=== PATIENT | female | born 1985 | race Caucasian/White ===

== ENCOUNTER 2023-10-20 20:11 | Outpatient (REF) | payer BC, SELFPAY ==
[2023-10-25 15:07] LABS: Age Gdln ACOG Testing Note (.); HPV Aptima Negative (Negative); IGP, Aptima HPV, rfx 16/18,45 Note (.)
== END 2023-10-20 20:12 | disposition home or self-care (01) ==
LOC: LAB 20:11
PROVIDERS: PCP Nurse Practitioner Family; Visit Provider Physician Assistant
DX: Z01.419 Encounter for gynecological examination (general) (routine) without abnormal findings (principal)
CPT/HCPCS: 87624; G0145

== ENCOUNTER 2023-11-04 10:17 | Outpatient (OUT) | payer BC, SELFPAY ==
[2023-11-04 11:20] LABS: Estimated Average Glucose 105 mg/dL; Glycohemoglobin A1C 5.3 % (4.5-6.2)
[2023-11-04 11:21] LABS: Basophils Percent Auto 0.8 % (0.2-2.0); Eosinophils Absolute Auto 0.1 10^3/uL (0.0-0.7); Eosinophils Percent Auto 1.2 % (0.9-7.0); Hematocrit 41.7 % (36.0-48.0); Hemoglobin 13.7 g/dL (12.0-16.0); Immature Granulocytes Abs Auto 0.01 10^3/uL (0.00-0.03); Immature Granulocytes Pct Auto 0.2 % (0.0-0.5); Lymphocytes Absolute Auto 1.6 10^3/uL (1.2-3.8); Lymphocytes Percent Auto 31.1 % (20.5-60.0); Mean Corpuscular HGB Conc 32.9 g/dL (29.9-35.2); Mean Corpuscular Hemoglobin 28.1 pg (26.7-34.0); Mean Corpuscular Volume 85.5 fL (81.0-99.0); Monocytes Absolute Auto 0.5 10^3/uL (0.3-0.8); Monocytes Percent Auto 9.7 % (1.7-12.0); Neutrophils Absolute Auto 2.9 10^3/uL (1.4-6.5); Platelet Count 319 10^3/uL (150-450); Red Blood Count 4.88 10^6/uL (4.20-5.40); Red Cell Distribution Width 14.1 % (11.0-15.0); White Blood Count 5.2 10^3/uL (4.0-11.0)
[2023-11-04 11:55] LABS: Mono Screen NEGATIVE (NEGATIVE)
[2023-11-04 11:56] LABS: Alanine Aminotransferase 17 U/L (14-59); Albumin Globulin Ratio 0.9; Albumin Level 3.9 g/dL (3.4-5.0); Alkaline Phosphatase 69 U/L (46-116); Anion Gap 12.6; Aspartate Amino Transferase 14 U/L (15-37); BUN Creatinine Ratio 19.2; Bilirubin Total 0.3 mg/dL (0.2-1.0); Calcium 9.2 mg/dL (8.5-10.1); Carbon Dioxide 28.2 mmol/L (21.0-32.0); Chloride 103 mmol/L (98-107); Chol HDL Ratio 2.9; Cholesterol 221 mg/dL (<=200); Estimated GFR (African America >60 (>=60); Estimated GFR (Non-African Ame >60 (>=60); Free T3 2.85 pg/mL (2.18-3.98); Globulin 4.2 g/dL; Glucose 84 mg/dL (74-106); HDL Cholesterol 76 mg/dL (40-60); Potassium 3.8 mmol/L (3.5-5.1); Sodium 140 mmol/L (136-145); Total Protein 8.1 g/dL (6.4-8.2); Triglycerides 84 mg/dL (<=150); Uric Acid 2.7 mg/dL (2.6-6.0); VLDL CHOLESTEROL 16.8 mg/dL
[2023-11-04 12:11] LABS: C Reactive Protein <0.50 mg/dL (<=0.50)
[2023-11-05 06:10] LABS: Antistreptolysin O Ab 207.8 IU/mL (0.0-200.0); Rheumatoid Factor (RF) <10.0 IU/mL (<14.0)
[2023-11-05 10:11] LABS: Insulin 3.8 uIU/mL (2.6-24.9)
== END 2023-11-04 10:18 | disposition home or self-care (01) ==
LOC: LAB 10:20
PROVIDERS: PCP Nurse Practitioner Family; Visit Provider Nurse Practitioner Family
DX: Z00.00 Encounter for general adult medical examination without abnormal findings (principal); R53.83 Other fatigue
CPT/HCPCS: 36415; 80053; 80061; 82306; 83036; 83525; 83540; 84436; 84443; 84481; 84550; 85025; 86038; 86060; 86140; 86308; 86431

== ENCOUNTER 2023-11-07 17:50 | Emergency (ER) | payer BC, SELFPAY ==
[2023-11-07] VITALS (20 sets, daily range): BP systolic 111–134; BP diastolic 70–84; PULSE 49–79; RESP 10–60; TEMP 36.9; O2SAT 95–100; BMI 29.5
--- OUTSIDE RECORDS SUMMARY | 2023-11-07 18:00 | XMS_ITS | CCD ---
Author Name Unknown Address [id number] [place] [address] Organization [facility] Care Team Providers Care Ticket Speculator Name Role Phone TAMEKA JC Attending Unavailable KARASIK ., DR DILLARD Consulting Unavailabl e KARASIK ., DR DILLARD Attending Unavailabl e KARASIK ., DR DILLARD Admitting Unavailabl e NILESH, ROSHAN Primary Care Unavailable KARASIK ., DR DILLARD Attending Unavailabl e NILESH, ROSHAN Primary Care Unavailable KARASIK ., DR DILLARD Admitting Unavailabl e NILESH, ROSHAN Primary Care Unavailable KARASIK ., DR DILLARD Attending Unavailabl e KARASIK ., DR DILLARD Admitting Unavailabl e KARASIK ., DR DILLARD Consulting Unavailabl e KARASIK ., DR DILLARD Attending Unavailabl e NILESH, ROSHAN Primary Care Unavailable KARASIK ., DR DILLARD Admitting Unavailabl e AGUBOSIM, OLIVIA Consulting Unavailable LUCRECIA GREENBERG Consulting Unavailable KARASIK ., DR DILLARD Consulting Unavailabl e NILESH, ROSHAN Primary Care Unavailable KARASIK ., DR DILLARD Attending Unavailabl e KARASIK ., DR DILLARD Admitting Unavailabl e LEANN SANCHEZ Consulting Unavailable NILESH, ROSHAN Attending Unavailable NILESH, ROSHAN Admitting Unavailable NILESH, ROSHAN Primary Care Unavailable KARASIK ., DR DILLARD Attending Unavailabl e LEVINE ., DR HUTCHISON Consulting Unavailable KARASIK ., DR DILLARD Admitting Unavailabl e NILESH, ROSHAN Primary Care Unavailable KARASIK ., DR DILLARD Consulting Unavailabl e AGUBOSIM, OLIVIA Consulting Unavailable VAISHNAVI ENGLISH Consulting Unavailable LEVINE ., DR HUTCHISON Procedure Practitioner Unav ailable KARASIK ., DR DILLARD Procedure Practitioner Jenna vailable NILESH, ROSHAN Primary Care Unavailable NILESH, ROSHAN Consulting Unavailable NILESH, ROSHAN Attending Unavailable NILESH, ROSHAN Admitting Unavailable NILESH, ROSHAN Consulting Unavailable NILESH, ROSHAN Attending Unavailable NILESH, ROSHAN Admitting Unavailable NILESH, ROSHAN Primary Care Unavailable NILESH, ROSHAN Primary Care Unavailable REINECK, DR MITCH Negron Attending Unavailabl e REINECK, DR MITCH Negron Admitting Unavailabl e REINECK, DR MITCH Negron Consulting Unavailabl e KARASIK ., DR DILLARD Consulting Unavailabl e KARASIK ., DR DILLARD Admitting Unavailabl e KARASIK ., DR DILLARD Attending Unavailabl e NILESH, ROSHAN Primary Care Unavailable KARASIK ., DR DILLARD Consulting Unavailabl e KARASIK ., DR DILLARD Attending Unavailabl e NILESH, ROSHAN Primary Care Unavailable KARASIK ., DR DILLARD Admitting Unavailabl e TYREL, RADHA Attending Unavailable Problems Active Problems Problem Classification Problem Date Documented Da te Episodic/Chronic Endometriosis (2 sources) Endometriosis, unspecified; Translations: [Endometriosis of pelvic peritoneum] Onset: 04-27-2022 Chronic External cause codes: Natural/environment (1 source) Bitten by dog, initial encounter; Translations: [Bitten by dog, initial encounter] Onset: 10-12-2018 Inflammatory diseases of female pelvic organs (4 sources) Chronic parametritis and pelvic cellulitis; Translations: [CHRON PARAMETRITIS PELV CELLULITIS] Onset: 05-15-2022 Chronic Menstrual disorders (1 source) Excessive and frequent menstruation with regular cycle; Translations: [EXCESS FREQ MENSTRUATION W/REG CYCL] Onset: 05-25-2022 Chronic Mood disorders (1 source) Bipolar disorder, unspecified; Translations: [BIPOLAR DISORDER UNSPECIFIED] Onset: 05-25-2022 Chronic Nausea and vomiting (1 source) Nausea; Translations: [Nausea] Onset: 01-07-2018 Episodic Other diseases of veins and lymphatics (1 source) Lymphangitis; Translations: [LYMPHANGITIS] Onset: 03-27-2022 Chronic Other female genital disorders (1 source) Abnormal uterine and vaginal bleeding, unspecified; Translations: [ABNORMAL UTERINE VAGINAL BLEED UNS] Onset: 04-27-2022 Chronic Unclassified (1 source) CONTACT W/AND (SUSP) EXPOS COVID-19; Translations: [CONTACT W/AND (SUSP) EXPOS COVID-19] Onset: 05-15-2022 Unclassified (3 sources) COUGH, UNSPECIFIED; Translations: [COUGH, UNSPECIFIED] Onset: 03-05-2022 Past or Other Problems Problem Classification Problem Date Documented Da te Episodic/Chronic Abdominal pain (5 sources) Left lower quadrant pain; Translations: [Pelvic and perineal pain] Onset: 01-07-2018 Episodic Complications of surgical procedures or medical care (1 source) Accidental puncture and laceration of a digestive system organ or structure during a digestive system procedure; Translations: [ACC PUNCT LAC DS ORGN DUR DS PROC] Onset: 05-25-2022 Episodic Contraceptive and procreative management (1 source) Tubal ligation status; Translations: [TUBAL LIGATION STATUS] Onset: 04-27-2022 Episodic E Codes: Natural/environment (1 source) Bitten by cat, initial encounter; Translations: [BITTEN BY CAT INITIAL ENCOUNTER] Onset: 03-27-2022 Episodic Fever of unknown origin (1 source) Fever, unspecified; Translations: [FEVER UNSPECIFIED] Onset: 03-05-2022 Episodic Immunizations and screening for infectious disease (1 source) Encounter for immunization; Translations: [ENCOUNTER FOR IMMUNIZATION] Onset: 03-27-2022 Episodic Inflammatory diseases of female pelvic organs (1 source) Female pelvic peritoneal adhesions (postinfective); Translations: [FE PELV PERITON ADHES POSTINFECTIVE] Onset: 05-25-2022 Episodic Open wounds of extremities (5 sources) Open bite of other finger without damage to nail, initial encounter; Translations: [Open bite of left thumb without damage to nail, initial encounter] Onset: 10-12-2018 Episodic Other female genital disorders (1 source) Hypertrophy of uterus; Translations: [HYPERTROPHY OF UTERUS] Onset: 05-25-2022 Episodic Screening and history of mental health and substance abuse codes (1 source) Personal history of nicotine dependence; Translations: [PERSONAL HISTORY OF NICOTINE DEPEND] Onset: 05-25-2022 Episodic Unclassified (1 source) COUGH, UNSPECIFIED; Translations: [COUGH, UNSPECIFIED] Onset: 03-02-2022 Results Test Name Value Interpretation Reference Range Facility Operative Reporton 2 Operative Report [id number] D:127 Normal [facility] CBC AUTO DIFFon 05-20-2022 BASO # 0.0 103/ul Normal 0.0-0.1 [facility] Comment on above: Performed By: #### C BC #### [facility] [address] [address] [address] Jose Daniel Duke Basophils/100 WBC (Bld) 0.5 % Normal 0.2-2.0 [facility] Comment on above: Performed By: #### C BC #### [facility] [address] [place] [address] Dr. Jose Daniel Duke EO # 0.2 103/ul Normal 0.0-0.7 [facility] Comment on above: Performed By: #### C BC #### [facility] [address] [place] [address] Dr. Jose Daniel Duke Eosinophils/100 WBC (Bld) 2.5 % Normal 0.9-7.0 [facility] Comment on above: Performed By: #### C BC #### [facility] [address] [place] [address] Dr. Jose Daniel Duke Erythrocyte distribution width (RBC) [Ratio] 15.7 % Critically high 11.0-15.0 [facility] Comment on above: Performed By: #### C BC #### [facility] [address] [place] [address] Dr. Jose Daniel Duke Hematocrit (Bld) [Volume fraction] 31.5 % Critically low 36.0-48.0 [facility] Comment on above: Performed By: #### C BC #### [facility] [address] [place] [address] Dr. Jose Daniel Duke Hemoglobin (Bld) [Mass/Vol] 10.0 g/dL Critically low 12.0-16.0 [facility] Comment on above: Performed By: #### C BC #### [facility] [address] [place] [address] Dr. Jose Daniel Duke IG # 0.01 10e3/ul Normal 0.00-0.03 [facility] Comment on above: Performed By: #### C BC #### [facility] [address] [place] [address] Dr. Jose Daniel Duke IG % 0.2 % Normal 0.0-0.5 [facility] Comment on above: Performed By: #### C BC #### [facility] [address] [place] [address] Dr. Jose Daniel Duke LYMPH # 2.2 103/ul Normal 1.2-3.8 [facility] Comment on above: Performed By: #### C BC #### [facility] [address] [place] [address] Dr. Jose Daniel Duke Lymphocytes/100 WBC (Bld) 34.4 % Normal 20.5-60.0 [facility] Comment on above: Performed By: #### C BC #### [facility] [address] [place] [address] Dr. Jose Daniel Duke MANUAL DIFF REQ NO Normal [facility] Comment on above: Performed By: #### C BC #### [facility] [address] [place] [address] Dr. Jose Daniel Duke MCH (RBC) [Entitic mass] 26.8 pg Normal 26.7-34.0 [facility] Comment on above: Performed By: #### C BC #### [facility] [address] [place] [address] Dr. Jose Daniel Duke MCHC (RBC) [Mass/Vol] 31.7 g/dL Normal 29.9-35.2 [facility] Comment on above: Performed By: #### C BC #### [facility] [address] [place] [address] Dr. Jose Daniel Duke MCV (RBC) [Entitic vol] 84.5 fL Normal 81.0-99.0 [facility] Comment on above: Performed By: #### C BC #### [facility] [address] [place] [address] Dr. Jose Daniel Duke MONO # 0.9 103/ul Critically high 0.3-0.8 [facility] Comment on above: Performed By: #### C BC #### [facility] [address] [place] [address] Dr. Jose Daniel Duke Monocytes/100 WBC (Bld) 14.7 % Critically high 1.7-12.0 [facility] Comment on above: Performed By: #### C BC #### [facility] [address] [place] [address] Dr. Jose Daniel Duke NEUT # 3.0 103/ul Normal 1.4-6.5 [facility] Comment on above: Performed By: #### C BC #### [facility] [address] [place] [address] Dr. Jose Daniel Duke Neutrophils/100 WBC (Bld) 47.7 % Normal 43.0-75.0 [facility] Comment on above: Performed By: #### C BC #### [facility] [address] [place] [address] Dr. Jose Daniel Duke Platelet mean volume (Bld) [Entitic vol] 9.7 fL Normal 9.5-13.5 [facility] Comment on above: Performed By: #### C BC #### [facility] [address] [place] [address] Dr. Jose Daniel Duke PLT 251 103/ul Normal 150-450 [facility] Comment on above: Performed By: #### C BC #### [facility] [address] [place] [address] Dr. Jose Daniel Duke RBC 3.73 106/ul Critically low 4.20-5.40 [facility] Comment on above: Performed By: #### C BC #### [facility] [address] [place] [address] Dr. Jose Daniel Duke WBC 6.3 103/ul Normal 4.0-11.0 [facility] Comment on above: Performed By: #### C BC #### [facility] [address] [place] [address] Dr. Jose Daniel Duke BUNon 05-19-2022 Urea nitrogen [Mass/Vol] 9.0 mg/dL Normal 7.0-18.0 [facility] Comment on above: Performed By: #### B UN, CREA #### [facility] [address] [place] [address] Dr. Jose Daniel Duke CBC AUTO DIFFon 05-19-2022 BASO # 0.0 103/ul Normal 0.0-0.1 [facility] Comment on above: Performed By: #### C BC #### [facility] [address] [address] [address] Jose Daniel Duke Basophils/100 WBC (Bld) 0.4 % Normal 0.2-2.0 [facility] Comment on above: Performed By: #### C BC #### [facility] [address] [address] [address] Jose Daniel Duke EO # 0.0 103/ul Normal 0.0-0.7 [facility] Comment on above: Performed By: #### C BC #### [facility] [address] [place] [address] Dr. Jose Daniel Duke Eosinophils/100 WBC (Bld) 0.3 % Critically low 0.9-7.0 [facility] Comment on above: Performed By: #### C BC #### [facility] [address] [place] [address] Dr. Jose Daniel Duke Erythrocyte distribution width (RBC) [Ratio] 15.6 % Critically high 11.0-15.0 [facility] Comment on above: Performed By: #### C BC #### [facility] [address] [place] [address] Dr. Jose Daniel Duke Hematocrit (Bld) [Volume fraction] 32.5 % Critically low 36.0-48.0 [facility] Comment on above: Performed By: #### C BC #### [facility] [address] [place] [address] Dr. Jose Daniel Duke Hemoglobin (Bld) [Mass/Vol] 10.4 g/dL Critically low 12.0-16.0 [facility] Comment on above: Performed By: #### C BC #### [facility] [address] [place] [address] Dr. Jose Daniel Duke IG # 0.04 10e3/ul Critically high 0.00-0.[address] [facility] Comment on above: Performed By: #### C BC #### [facility] [address] [place] [address] Dr. Jose Daniel Duke IG % 0.4 % Normal 0.0-0.5 [facility] Comment on above: Performed By: #### C BC #### [facility] [address] [place] [address] Dr. Jose Daniel Duke LYMPH # 1.9 103/ul Normal 1.2-3.8 [facility] Comment on above: Performed By: #### C BC #### [facility] [address] [place] [address] Dr. Jose Daniel Duke Lymphocytes/100 WBC (Bld) 20.3 % Critically low 20.5-60.0 [facility] Comment on above: Performed By: #### C BC #### [facility] [address] [place] [address] Dr. Jose Daniel Duke MANUAL DIFF REQ NO Normal [facility] Comment on above: Performed By: #### C BC #### [facility] [address] [place] [address] Dr. Jose Daniel Duke MCH (RBC) [Entitic mass] 26.9 pg Normal 26.7-34.0 [facility] Comment on above: Performed By: #### C BC #### [facility] [address] [place] [address] Dr. Jose Daniel Duke MCHC (RBC) [Mass/Vol] 32.0 g/dL Normal 29.9-35.2 [facility] Comment on above: Performed By: #### C BC #### [facility] [address] [place] [address] Dr. Jose Daniel Duke MCV (RBC) [Entitic vol] 84.2 fL Normal 81.0-99.0 [facility] Comment on above: Performed By: #### C BC #### [facility] [address] [place] [address] Dr. Jose Daniel Duke MONO # 1.2 103/ul Critically high 0.3-0.8 [facility] Comment on above: Performed By: #### C BC #### [facility] [address] [place] [address] Dr. Jose Daniel Duke Monocytes/100 WBC (Bld) 12.6 % Critically high 1.7-12.0 [facility] Comment on above: Performed By: #### C BC #### [facility] [address] [place] [address] Dr. Jose Daniel Duke NEUT # 6.2 103/ul Normal 1.4-6.5 [facility] Comment on above: Performed By: #### C BC #### [facility] [address] [place] [address] Dr. Jose Daniel Duke Neutrophils/100 WBC (Bld) 66.0 % Normal 43.0-75.0 [facility] Comment on above: Performed By: #### C BC #### [facility] [address] [place] [address] Dr. Jose Daniel Duke Platelet mean volume (Bld) [Entitic vol] 9.9 fL Normal 9.5-13.5 [facility] Comment on above: Performed By: #### C BC #### [facility] [address] [place] [address] Dr. Jose Daniel Duke PLT 259 103/ul Normal 150-450 [facility] Comment on above: Performed By: #### C BC #### [facility] [address] [place] [address] Dr. Jose Daniel Duke RBC 3.86 106/ul Critically low 4.20-5.40 [facility] Comment on above: Performed By: #### C BC #### [facility] [address] [place] [address] Dr. Jose Daniel Duke WBC 9.3 103/ul Normal 4.0-11.0 [facility] Comment on above: Performed By: #### C BC #### [facility] [address] [place] [address] Dr. Jose Daniel Duke CREATININEon 05-19-2022 Creatinine [Mass/Vol] 0.91 mg/dL Normal 0.55-1.02 [facility] Comment on above: Performed By: #### B UN, CREA #### [facility] [address] [place] [address] Dr. Jose Daniel Duke EGFR-AF CITIZ[place] >60 Normal >=[address] [facility] Comment on above: Performed By: #### B UN, CREA #### [facility] [address] [address] [address] Jose Daniel Duke EGFR-NON AF CITIZEN OF [place] >60 Normal >=60 [facility] Comment on above: Performed By: #### B UN, CREA #### [facility] [address] [id number] Jose Daniel Duke URon 05-18-2022 , QUAL Negative Normal NEGATIVE [facility] Comment on above: Performed By: #### B UN, CREA #### [facility] [address] [address] [address] Jose Daniel Duke [facility] 04-27 SARS-CoV-2 (COVID-19) RNA VON+probe Ql (Unsp spec) Not detected Normal NOT DETECTED [facility] Comment on above: Result Comment: This test is not yet approved or cleared by the [place] FDA. When there are no FDA-approved or cleared tests available, and other criteria are met, FDA can make tests available under an emergency access mechanism called an Emergency Use Authorization (EUA). The EUA for this test is supported by the [place] of Health and Human Service's (HHS's) declaration that circumstances exist to justify the emergency use of in vitro diagnostics for the detection and/or diagnosis of the virus that causes COVID-19. This EUA will remain in effect (meaning this test can be used) for the duration of the COVID-19 declaration justifying emergency of IVDs, unless it is terminated or revoked by FDA (after which the test may no longer be used). When diagnostic testing is negative, the possibility of a false negative should be considered in the context of a patient's recent exposures and the presence of clinical signs and symptoms consistent with SARS-CoV-2. Performed By: #### B UN, CREA #### [facility] [address] [address] [address] Jose Daniel Duke TYPE AND SCREENon 05-14-2022 TYPE AND SCREEN Negative Normal [facility] Comment on above: Performed By: #### B UN, CREA #### [facility] [address] [place] [address] Dr. Jose Daniel Duke Physician Referralon 022 Physician Referral [id number] D:127 Normal [facility] URon 04-20-2022 , QUAL Negative Normal NEGATIVE [facility] Comment on above: Performed By: #### P REGU #### [facility] [address] [place] [address] Dr. Jose Daniel Duke T4 LABCORPon 03-05-2022 T4 [Mass/Vol] 7.4 ug/dL Normal 4.5-12.0 [facility] Comment on above: Performed By: #### T 4LC #### [facility] [address] [place] [address] Dr. Jose Daniel Duke Covid-19 PCR ([facility])on SARS-CoV-2 (COVID-19) RNA VON+probe Ql (Unsp spec) Not detected Normal NOT DETECTED [facility] Comment on above: Result Comment: When diagnostic testing is negative, the possibility of a false negative should be considered in the context of a patient's recent exposures and the presence of clinical signs and symptoms consistent with SARS-CoV-2. This test is not yet approved or cleared by the [place] FDA. When there are no FDA-approved or cleared tests available, and other criteria are met, FDA can make tests available under an emergency access mechanism called an Emergency Use Authorization (EUA). The EUA for this test is supported by the [place] of Health and Human Service's declaration that circumstances exist to justify the emergency use of in vitro diagnostics for the detection and/or diagnosis of the virus that causes COVID-19. This EUA will remain in effect for the duration of the COVID-19 declaration justifying emergency of IVDs, unless it is terminated or revoked by the FDA (after which the test may no longer be used). Performed By: #### B UN, CREA #### [facility] [address] [place] [address] Dr. Jose Daniel Duke INFLUENZA A AND B AGon 03-02 INFLUANEGH SEE BELOW Normal [facility] Comment on above: Result Comment: Nega tive for Flu A protein angiten. Infection due to Flu A cannot be ruled out. Flu A angiten in the sample may be below the detection limit of the test. Performed By: #### I NFLUAB #### [facility] [address] [place] [address] Dr. Jose Daniel Duke [facility]ALTH SEE BELOW Normal [facility] Comment on above: Result Comment: Nega tive for Flu B protein antigen. Infection due to Flu B cannot be ruled out. Flu B antigen in the sample may be below the detection limit of the test. Performed By: #### I NFLUAB #### [facility] [address] [place] [address] Dr. Jose Daniel Duke INFLUENZA A AG Negative Normal NEGATIVE SEE COMMENT [facility] Comment on above: Performed By: #### I NFLUAB #### [facility] [address] [place] [address] Dr. Jose Daniel Duke INFLUENZA B AG Negative Normal NEGATIVE SEE COMMENT [facility] Comment on above: Performed By: #### I NFLUAB #### [facility] [address] [place] [address] Dr. Jose Daniel Duke INTERNAL CONTROLS Within Normal Limits Normal Wi thin Normal Limits [facility] Comment on above: Performed By: #### I NFLUAB #### [facility] [address] [place] [address] Dr. Jose Daniel Duke SYMPTOMATIC COVID-19 ANTIGEN on 03-02-2022 EUA Statement SEE BELOW Normal [facility] Comment on above: Result Comment: This test has not been FDA cleared or approved, but has been authorized by the FDA under an Emergency Use Authorization (EUA) for use by authorized laboratories certified under CLIA that meet the requirements to perform moderate or high complexity testing. This test has been authorized only for the detection of proteins from SARS-CoV-2, not for any other viruses or pathogens. The emergency use of this test is authorized for the duration of the declaration that circumstances exist justifying the authorization of emergency use of in vitro diagnostic tests for detection and/or diagnosis of Covid-19 under section 564(b)(1) of the Act, 21 U.S.C. 360bbb-3(b)(1), unless the declaration is terminated or authorization is revoked sooner. Performed By: #### C VDAGS #### [facility] [address] [place] [address] Dr. Jose Daniel Duke SARS-CoV-2 (COVID-19) RNA VON+probe Ql (Unsp spec) Negative Normal NEGATIVE [facility] Comment on above: Performed By: #### C VDAGS #### [facility] [address] [place] [address] Dr. Jose Daniel Duke INSULINon 02-26-2022 Insulin 6.8 uIU/mL Normal 2.6-24.9 [facility] Comment on above: Performed By: #### B UN, CREMelvina #### [facility] [address] [place] [address] Dr. Jose Daniel Duke CBC AUTO DIFFon 02-25-2022 BASO # 0.1 103/ul Normal 0.0-0.1 [facility] Comment on above: Performed By: #### C BC #### [facility] [address] [place] [address] Dr. Jose Daniel Duke Basophils/100 WBC (Bld) 0.8 % Normal 0.2-2.0 [facility] Comment on above: Performed By: #### C BC #### [facility] [address] [place] [address] Dr. Jose Daniel Duke EO # 0.1 103/ul Normal 0.0-0.7 [facility] Comment on above: Performed By: #### C BC #### [facility] [address] [place] [address] Dr. Jose Daniel Duke Eosinophils/100 WBC (Bld) 1.3 % Normal 0.9-7.0 [facility] Comment on above: Performed By: #### C BC #### [facility] [address] [place] [address] Dr. Jose Daniel Duke Erythrocyte distribution width (RBC) [Ratio] 15.1 % Critically high 11.0-15.0 [facility] Comment on above: Performed By: #### C BC #### [facility] [address] [address] [address] Jose Daniel Duke Hematocrit (Bld) [Volume fraction] 39.5 % Normal 36.0-48.0 [facility] Comment on above: Performed By: #### C BC #### [facility] [address] [place] [address] Dr. Jose Daniel Duke Hemoglobin (Bld) [Mass/Vol] 12.7 g/dL Normal 12.0-16.0 [facility] Comment on above: Performed By: #### C BC #### [facility] [address] [place] [address] Dr. Jose Daniel Duke IG # 0.01 10e3/ul Normal 0.00-0.03 [facility] Comment on above: Performed By: #### C BC #### [facility] [address] [place] [address] Dr. Jose Daniel Duke IG % 0.2 % Normal 0.0-0.5 [facility] Comment on above: Performed By: #### C BC #### [facility] [address] [place] [address] Dr. Jose Daniel Duke LYMPH # 2.0 103/ul Normal 1.2-3.8 [facility] Comment on above: Performed By: #### C BC #### [facility] [address] [place] [address] Dr. Jose Daniel Duke Lymphocytes/100 WBC (Bld) 32.7 % Normal 20.5-60.0 [facility] Comment on above: Performed By: #### C BC #### [facility] [address] [place] [address] Dr. Jose Daniel Duke MANUAL DIFF REQ NO Normal [facility] Comment on above: Performed By: #### C BC #### [facility] [address] [place] [address] Dr. Jose Daniel Duke MCH (RBC) [Entitic mass] 27.2 pg Normal 26.7-34.0 [facility] Comment on above: Performed By: #### C BC #### [facility] [address] [address] [address] Jose Daniel Duke MCHC (RBC) [Mass/Vol] 32.2 g/dL Normal 29.9-35.2 [facility] Comment on above: Performed By: #### C BC #### [facility] [address] [address] [address] Jose Daniel Duke MCV (RBC) [Entitic vol] 84.6 fL Normal 81.0-99.0 [facility] Comment on above: Performed By: #### C BC #### [facility] [address] [address] [address] Jose Daniel Duke MONO # 0.8 103/ul Normal 0.3-0.8 [facility] Comment on above: Performed By: #### C BC #### [facility] [address] [place] [address] Dr. Jose Daniel Duke Monocytes/100 WBC (Bld) 12.9 % Critically high 1.7-12.0 [facility] Comment on above: Performed By: #### C BC #### [facility] [address] [place] [address] Dr. Jose Daniel Duke NEUT # 3.2 103/ul Normal 1.4-6.5 [facility] Comment on above: Performed By: #### C BC #### [facility] [address] [place] [address] Dr. Jose Daniel Duke Neutrophils/100 WBC (Bld) 52.1 % Normal 43.0-75.0 [facility] Comment on above: Performed By: #### C BC #### [facility] [address] [place] [address] Dr. Jose Daniel Duke Platelet mean volume (Bld) [Entitic vol] 10.1 fL Normal 9.5-13.5 [facility] Comment on above: Performed By: #### C BC #### [facility] [address] [place] [address] Dr. Jose Daniel Duke PLT 314 103/ul Normal 150-450 [facility] Comment on above: Performed By: #### C BC #### [facility] [address] [address] [address] Jose Daniel Duke RBC 4.67 106/ul Normal 4.20-5.40 [facility] Comment on above: Performed By: #### C BC #### [facility] [address] [place] [address] Dr. Jose Daniel Duke WBC 6.1 103/ul Normal 4.0-11.0 [facility] Comment on above: Performed By: #### C BC #### [facility] [address] [place] [address] Dr. Jose Daniel Duke FREE THYROXINE INDEX T7on FTI 2.37 Normal 1.30-4.50 [facility] Comment on above: Performed By: #### B DEMETRICE, CREA #### [facility] [address] [place] [address] Dr. Jose Daniel Duke T3U 32.0 % Normal 30.0-39.0 [facility] Comment on above: Performed By: #### B DEMETRICE, CREA #### [facility] [address] [place] [address] Dr. Jose Daniel Duke T4 [Mass/Vol] 7.40 ug/dL Normal 4.80-13.90 [facility] Comment on above: Result Comment: T4 t esting performed by [facility] Performed By: #### B DEMETRICE, CREA #### [facility] [address] [place] [address] Dr. Jose Daniel Duke GLYCOHEMOGLOBIN A1Con 2021 ADA RECOMMENDATION SEE BELOW Normal [facility] Comment on above: Result Comment: ADA RECOMMENDED LIMIT 4.0 - 6.0 ADA THERAPEUTIC TARGET < 7.0 ACTION SUGGESTED > 7.0 Performed By: #### A 1C #### [facility] [address] [place] [address] Dr. Jose Daniel Duke Glucose [Mass/Vol] 111 mg/dL Normal [facility] Comment on above: Performed By: #### A 1C #### [facility] [address] [place] [address] Dr. Jose Daniel Duke HbA1c (Bld) [Mass fraction] 5.5 % Normal 4.5-6.2 [facility] Comment on above: Performed By: #### A 1C #### [facility] [address] [address] [address] Jose Daniel Duke IRONon 02-25-2022 Iron [Mass/Vol] 77.0 ug/dL Normal 50.0-170.0 [facility] Comment on above: Performed By: #### B UN, CREA #### [facility] [address] [address] [address] Jose Daniel Duke LIPID PROFILEon 02-25-2022 CHOL-HDL RATIO NORM SEE BELOW Normal [facility] Comment on above: Result Comment: 3.3 - 4.4 LOW RISK 4.4 - 7.1 AVERAGE RISK 7.1 - 11.0 MODERATE RISK >11.0 HIGH RISK Performed By: #### B UN, CREA #### [facility] [address] [place] [address] Dr. Jose Daniel Duke Cholesterol [Mass/Vol] 163 mg/dL Normal <=200 [facility] Comment on above: Performed By: #### B UN, CREA #### [facility] [address] [address] [address] Jose Daniel Duke Cholesterol in HDL [Mass/Vol] 55 mg/dL Normal 40-60 [facility] Comment on above: Performed By: #### B UN, CREA #### [facility] [address] [address] [address] Jose Daniel Duke Cholesterol in LDL [Mass/Vol] 77.2 mg/dL Normal [facility] Comment on above: Performed By: #### B UN, CREA #### [facility] [address] [address] [address] Jose Daniel Duke Cholesterol.total/Ch olesterol in HDL [Mass ratio] 3.0 {ratio} Normal [facility] Comment on above: Performed By: #### B UN, CREA #### [facility] [address] [address] [address] Jose Daniel Duke HDL NORMAL > or = 60 mg/dl - LO W CARDIOVASCULAR RISK <40 mg/dl - HIGH CARDIOVASCULAR RISK Normal [facility] Comment on above: Performed By: #### B UN, CREA #### [facility] [address] [place] [address] Dr. Jose Daniel Duke LDL CALC NORMAL SEE BELOW Normal [facility] Comment on above: Result Comment: <100 mg/dl OPTIMAL 100 - 129 mg/dl NEAR OR ABOVE OPTIMAL 130 - 159 mg/dl BORDERLINE HIGH 160 - 189 mg/dl HIGH >190 mg/dl VERY HIGH Performed By: #### B UN, CREA #### [facility] [address] [place] [address] Dr. Jose Daniel Duke Triglyceride [Mass/Vol] 154 mg/dL Critically high <=150 [facility] Comment on above: Performed By: #### B UN, CREA #### [facility] [address] [place] [address] Dr. Jose Daniel Duke VLDL CALC 30.8 mg/dL Normal [facility] Comment on above: Performed By: #### B UN, CREA #### [facility] [address] [place] [address] Dr. Jose Daniel Duke PROF 14(COMP METB)on 022 Albumin [Mass/Vol] 3.8 g/dL Normal 3.4-5.0 [facility] Comment on above: Performed By: #### B UN, CREA #### [facility] [address] [place] [address] Dr. Jose Daniel Duke Albumin/Globulin [Mass ratio] 1.0 {ratio} Normal [facility] Comment on above: Performed By: #### B UN, CREA #### [facility] [address] [place] [address] Dr. Jose Daniel Duke ALP [Catalytic activity/Vol] 60 U/L Normal 46-116 [facility] Comment on above: Performed By: #### B UN, CREA #### [facility] [address] [place] [address] Dr. Jose Daniel Duke ALT [Catalytic activity/Vol] 15 U/L Normal 14-59 [facility] Comment on above: Performed By: #### B UN, CREA #### [facility] [address] [place] [address] Dr. Jose Daniel Duke Anion gap [Moles/Vol] 14.5 mmol/L Normal [facility] Comment on above: Performed By: #### B UN, CREA #### [facility] [address] [place] [address] Dr. Jose Daniel Duke AST [Catalytic activity/Vol] 10 U/L Critically low 15-37 [facility] Comment on above: Performed By: #### B UN, CREA #### [facility] [address] [place] [address] Dr. Jose Daniel Duke Bilirubin [Mass/Vol] 0.2 mg/dL Normal 0.2-1.0 [facility] Comment on above: Performed By: #### B UN, CREA #### [facility] [address] [place] [address] Dr. Jose Daniel Duke Calcium [Mass/Vol] 8.8 mg/dL Normal 8.5-10.1 [facility] Comment on above: Performed By: #### B UN, CREA #### [facility] [address] [place] [address] Dr. Jose Daniel Duke Chloride [Moles/Vol] 102 mmol/L Normal 98-107 [facility] Comment on above: Performed By: #### B UN, CREA #### [facility] [address] [place] [address] Dr. Jose Daniel Duke CO2 [Moles/Vol] 24.8 mmol/L Normal 21.0-32.[address] [facility] Comment on above: Performed By: #### B UN, CREA #### [facility] [address] [place] [address] Dr. Jose Daniel Duke Creatinine [Mass/Vol] 0.80 mg/dL Normal 0.55-1.02 [facility] Comment on above: Performed By: #### B UN, CREA #### [facility] [address] [place] [address] Dr. Jose Daniel Duke EGFR-AF CITIZ[place] >60 Normal >=[address] [facility] Comment on above: Performed By: #### B UN, CREA #### [facility] [address] [place] [address] Dr. Jose Daniel Duke EGFR-NON AF CITIZEN OF [place] >60 Normal >=60 [facility] Comment on above: Performed By: #### B UN, CREA #### [facility] [address] [place] [address] Dr. Jose Daniel Duke Globulin (S) [Mass/Vol] 3.7 g/dL Normal [facility] Comment on above: Performed By: #### B UN, CREA #### [facility] [address] [place] [address] Dr. Jose Daniel Duke Glucose [Mass/Vol] 94 mg/dL Normal 74-106 [facility] Comment on above: Performed By: #### B UN, CREA #### [facility] [address] [place] [address] Dr. Jose Daniel Duke Potassium [Moles/Vol] 4.3 mmol/L Normal 3.5-5.1 [facility] Comment on above: Performed By: #### B UN, CREA #### [facility] [address] [place] [address] Dr. Jose Daniel Duke Protein [Mass/Vol] 7.5 g/dL Normal 6.4-8.2 [facility] Comment on above: Performed By: #### B UN, CREA #### [facility] [address] [place] [address] Dr. Jose Daniel Duke Sodium [Moles/Vol] 137 mmol/L Normal 136-145 [facility] Comment on above: Performed By: #### B UN, CREA #### [facility] [address] [place] [address] Dr. Jose Daniel Duke Urea nitrogen [Mass/Vol] 13.0 mg/dL Normal 7.0-18.0 [facility] Comment on above: Performed By: #### B UN, CREA #### [facility] [address] [place] [address] Dr. Jose Daniel Duke Urea nitrogen/Creatinine [Mass ratio] 16.2 mg/mg Normal [facility] Comment on above: Performed By: #### B UN, CREA #### [facility] [address] [address] [address] Jose Daniel Duke TSHon 02-25-2022 TSH 1.593 uIU/mL Normal 0.358-3.740 [facility] Comment on above: Performed By: #### B UN, CREA #### [facility] [address] [address] [address] Jose Daniel Duke TSH RANGE SEE BELOW Normal [facility] Comment on above: Result Comment: <0.3 4 UIU/ml HYPERTHYROID 0.34-5.60 UIU/ml EUTHYROID >5.60 UIU/ml HYPOTHYROID Performed By: #### B DEMETRICE, CREA #### [facility] [address] [address] [address] Jose Daniel Duke Lipid Panelon 03-27-2021 Cholesterol [Mass/Vol] 183 mg/dL Normal 140-200 [facility] Comment on above: Result Comment: Chol less than 200 mg/dl low risk Chol 201-239 mg/dl borderline risk Chol 240 mg/dl and greater high risk Performed By: #### V [id number], LIPID, TSH3 wRFLX #### [facility] [address] [place] [address] [place] Cholesterol in HDL [Mass/Vol] 50 mg/dL Normal 35-85 [facility] Comment on above: Result Comment: HDL CHOL ATP-III CLASSIFICATION Cardiovascular Risk HDL > or equal to 60 mg/dL LOW HDL < 40 mg/dL HIGH Performed By: #### V [id number], LIPID, TSH3 wRFLX #### [facility] [address] [place] [address] [place] Cholesterol.total/Ch olesterol in HDL [Mass ratio] 3.7 {ratio} Normal <5.0 [facility] Comment on above: Performed By: #### V [id number], LIPID, TSH3 wRFLX #### [facility] [address] [id number] [place] LDL Cholesterol,Calculat ed 110 mg/dL High 0-100 [facility] Comment on above: Result Comment: LDL ATP III CLASSIFICATION LDL less than 100 mg/dL Optimal LDL 100-129 mg/dL Near or above optimal LDL 130-159 mg/dL Borderline high LDL 160-189 mg/dL High LDL greater than 189 mg/dL Very high Performed By: #### V [id number], LIPID, TSH3 wRFLX #### [facility] [address] Triglyceride w/Reflex 113 mg/dL Normal 35-149 [facility] Comment on above: Result Comment: TRIG ATP III CLASSIFICATION TRIG less than 150 mg/dL Normal TRIG 150-199 mg/dL Borderline high TRIG 200-500 mg/dL High TRIG greater than 500 mg/dL Very high Standard traceable to the Center for Disease Conrtrol and Prevention (CDC) test method. Performed By: #### V [id number], LIPID, TSH3 wRFLX #### [facility] [address] [place] [address] VLDL CHOLESTEROL 22 mg/dL Normal [facility] Comment on above: Performed By: #### V [id number], LIPID, TSH3 wRFLX #### [facility] [address] [place] [address] Thyroid Stim Hormone w/Rflxo n 03-27-2021 Thyroid Stim Hormone w/Rflx 1.13 u[iU]/mL Normal 0.45-5.33 [facility] Comment on above: Performed By: #### V [id number], LIPID, TSH3 wRFLX #### [address] Vitamin D 25 Hydroxy Totalon 03-27-2021 Vitamin D 25 Hydroxy Total 20.5 ng/mL Low 30-100 [facility] Comment on above: Result Comment: WILLARD MIN D STATUS 25(OH)VITAMIN D RANGE (ng/mL) Deficient <20 Insufficient 20 to <30 Sufficient 30 to 100 Reference: Hallie MF,Paulina NC, Natividad RODRIGUEZ, et al. Evaluation,treatment, and prevention of vitamin D deficiency; an Endocrine Society clinical practice guideline. JCEM. 2010; 96(7):1911-30. PERFORMED BY: [place] [address] PATHOLOGIST HYPERTRICHOLOGIST JULIA GUARDADO M.D. Performed By: #### V [id number], LIPID, TSH3 wRMSX #### [facility] [address] COVID-19 Antigenon 1 COVID-19 Antigen Healthcare Worker?: N Jenny Reference Jenny Reference Negative SARS-CoV+SARS-CoV-2 (COVID-19) Ag [Presence] in Respiratory specimen by Rapid immunoassay Negative for SARS Antigen by [facility] COVID19 Blank Space -------- Jenny Disclaimer Negative results, from patients with symptom Jenny Disclaimer onset beyond five days, should be treated as Jenny Disclaimer presumptive and confirmation with a molecular Jenny Disclaimer assay, if necessary, for patient management, Jenny Disclaimer may be performed. Negative results do not rule Jenny Disclaimer out COVID-19 and should not be used as the sole Jenny Disclaimer basis for treatment or patient management Jenny Disclaimer decisions, including infection control decisions. Jenny Disclaimer Negative results should be considered in the Jenny Disclaimer context of a patient's recent exposures, history Jenny Disclaimer and the presence of clinical signs and symptoms Jenny Disclaimer consistent with COVID-19. COVID19 Blank Space -------- Jenny Disclaimer The Jenny SARS Antigen [facility] does not differentiate Jenny Disclaimer between SARS-CoV and SARS-CoV-2. COVID19 Blank Space -------- Jenny Disclaimer This test was developed and its performance Jenny Disclaimer characteristic determined by [employer] and Jenny Disclaimer validated at [facility]. This Jenny Disclaimer test has not been FDA cleared or approved. This Jenny Disclaimer test has been authorized by FDA under an Emergency Use Jenny Disclaimer Authorization (EUA). This test has been validated Jenny Disclaimer in accordance with the FDA's Guidance Document (Policy Jenny Disclaimer for Diagnostics Testing in Laboratories Certified to Jenny Disclaimer Perform High Complexity Testing under CLIA prior to Jenny Disclaimer Emergency Use Authorization for Coronavirus Jenny Disclaimer iseas during the Public Health Emergency) Jneny Disclaimer issued on December 28, 2019. This test is only authorized Jenny Disclaimer for the duration of time the declaration that Jenny Disclaimer circumstances exist justifying the authorization of Jenny Disclaimer the emergency use of in vitro diagnostic tests for Jenny Disclaimer detection of SARS-CoV-2 virus and/or diagnosis of Jenny Disclaimer COVID-19 infection under section 564(b)(1) of the Jenny Disclaimer Act, 21 U.S.C. 360bbb-3(b)(1), unless the Jenny Disclaimer authorization is terminated or revoked sooner. PERFORMED BY: [place] [address] PATHOLOGIST HYPERTRICHOLOGIST JULIA GUARDADO M.D. Normal [facility] Comment on above: Performed By: #### S OFIANEG, COVID-19 JENNY #### [facility] [address] [place] [address] Complete Blood Count Auto Di ffon 03-26-2021 Basophils (Bld) [#/Vol] 0.0 10*3/uL Normal 0.0-0.2 [facility] Comment on above: Result Comment: PERF ORMED BY: [place] [address] PATHOLOGIST HYPERTRICHOLOGIST JULIA GUARDADO M.D. Performed By: #### C MP, CBC, ETOH #### [facility] [address] [place], [place] [id number] [facility] Basophils/100 WBC (Bld) 0.7 % Normal . [facility] Comment on above: Performed By: #### C MP, CBC, ETOH #### [place] [address] [place] Eosinophils (Bld) [#/Vol] 0.1 10*3/uL Normal 0.0-0.45 [facility] Comment on above: Performed By: #### C MP, CBC, ETOH #### [address] Eosinophils/100 WBC (Bld) 1.4 % Normal . [facility] Comment on above: Performed By: #### C MP, CBC, ETOH #### [address] Erythrocyte distribution width (RBC) [Ratio] 16.1 % High 11.9-15.3 [facility] Comment on above: Performed By: #### C MP, CBC, ETOH #### [address] Hematocrit (Bld) [Volume fraction] 38.6 % Normal 34.0-46.4 [facility] Comment on above: Performed By: #### C MP, CBC, ETOH #### [address] Hemoglobin (Bld) [Mass/Vol] 12.8 g/dL Normal 11.8-15.4 [facility] Comment on above: Performed By: #### C MP, CBC, ETOH #### [place] [address] [place] Lymphocytes (Bld) [#/Vol] 1.2 10*3/uL Normal 1.00-4.8 [facility] Comment on above: Performed By: #### C MP, CBC, ETOH #### [place] [address] [place] Lymphocytes/100 WBC (Bld) 23.9 % Normal . [facility] Comment on above: Performed By: #### C MP, CBC, ETOH #### [address] MCH (RBC) [Entitic mass] 27.1 pg Normal 24.7-34.3 [facility] Comment on above: Performed By: #### C MP, CBC, ETOH #### [address] MCV (RBC) [Entitic vol] 81.9 fL Normal 80-100 [facility] Comment on above: Performed By: #### C MP, CBC, ETOH #### [address] Mean Corpuscular HGB Conc 33.1 g/dL Normal 32.0-35.0 [facility] Comment on above: Performed By: #### C MP, CBC, ETOH #### [address] Monocytes (Bld) [#/Vol] 0.5 10*3/uL Normal 0.0-0.8 [facility] Comment on above: Performed By: #### C MP, CBC, ETOH #### [address] Monocytes/100 WBC (Bld) 10.6 % Normal . [facility] Comment on above: Performed By: #### C MP, CBC, ETOH #### [address] Neutrophils (Bld) [#/Vol] 3.1 10*3/uL Normal 1.8-7.7 [facility] Comment on above: Performed By: #### C MP, CBC, ETOH #### [place] [address] [place] Neutrophils/100 WBC (Bld) 63.4 % Normal . [facility] Comment on above: Performed By: #### C MP, CBC, ETOH #### [place] [address] [place] Nucleated RBC/100 WBC (Bld) [Ratio] 0.1 % Normal 0-0.5 [facility] Comment on above: Performed By: #### C MP, CBC, ETOH #### [address] Platelet mean volume (Bld) [Entitic vol] 8.1 fL Normal 6.3-10.7 [facility] Comment on above: Performed By: #### C MP, CBC, ETOH #### [facility] [address] [place] [address] Platelets (Bld) [#/Vol] 284 10*3/uL Normal 150-450 [facility] Comment on above: Performed By: #### C MP, CBC, ETOH #### [address] RBC (Bld) [#/Vol] 4.71 10*6/uL Normal 3.60-5.00 [facility] Comment on above: Performed By: #### C MP, CBC, ETOH #### [address] WBC (Bld) [#/Vol] 4.9 10*3/uL Normal 4.5-11.0 [facility] Comment on above: Performed By: #### C MP, CBC, ETOH #### [address] Comprehensive Metabolic Pane maxim 03-26-2021 Albumin [Mass/Vol] 4.0 g/dL Normal 3.2-5.5 [facility] Comment on above: Performed By: #### C MP, CBC, ETOH #### [address] Albumin/Globulin [Mass ratio] 1.3 {ratio} Normal [facility] Comment on above: Performed By: #### C MP, CBC, ETOH #### [address] ALP [Catalytic activity/Vol] 55 U/L Normal 32-92 [facility] Comment on above: Performed By: #### C MP, CBC, ETOH #### [address] ALT [Catalytic activity/Vol] 11 U/L Normal 10-60 [facility] Comment on above: Performed By: #### C MP, CBC, ETOH #### [address] [place] [address] [place] AST [Catalytic activity/Vol] 15 U/L Normal 10-42 [facility] Comment on above: Performed By: #### C MP, CBC, ETOH #### [facility] [address] Bilirubin [Mass/Vol] 0.8 mg/dL Normal 0.3-1.2 [facility] Comment on above: Performed By: #### C MP, CBC, ETOH #### [facility] [address] Calcium [Mass/Vol] 9.1 mg/dL Normal 8.2-10.2 [facility] Comment on above: Performed By: #### C MP, CBC, ETOH #### [facility] [address] Chloride [Moles/Vol] 103 mmol/L Normal 95-114 [facility] Comment on above: Performed By: #### C MP, CBC, ETOH #### [facility] [address] CO2 [Moles/Vol] 23.7 mmol/L Normal 22.0-30.0 [facility] Comment on above: Performed By: #### C MP, CBC, ETOH #### [facility] [address] Creatinine [Mass/Vol] 0.90 mg/dL Normal 0.44-1.03 [facility] Comment on above: Performed By: #### C MP, CBC, ETOH #### [facility] [address] [place] [address] [place] Creatinine Clr Calc Pharmacy 98.11 [facility] Comment on above: Result Comment: PERF ORMED BY: [place] [address] PATHOLOGIST HYPERTRICHOLOGIST JULIA GUARDADO M.D. Performed By: #### C MP, CBC, ETOH #### [place] [address] [place] Estimated GFR ( Jeny > 60 Normal [facility] Comment on above: Result Comment: GFR estimated reference range: According to KDOQI guidelines, <60 ml/min/1.73m2 is sufficient to diagnose a patient with chronic kidney disease. Performed By: #### C MP, CBC, ETOH #### [address] Estimated GFR (Non- Am > 60 Normal [facility] Comment on above: Performed By: #### C MP, CBC, ETOH #### [address] Globulin (S) [Mass/Vol] 3.2 g/dL Normal [facility] Comment on above: Performed By: #### C MP, CBC, ETOH #### [address] Glucose [Mass/Vol] 111 mg/dL High 70-100 [facility] Comment on above: Result Comment: Carbon om Glucose Reference Range is dependent on time and content of last meal. Glucose of more than 200 mg/dL in a nonstressed, ambulatory subject supports the diagnosis of Diabetes Mellitus. ADA recommended reference range Performed By: #### C MP, CBC, ETOH #### [address] Potassium [Moles/Vol] 4.4 mmol/L Normal 3.5-5.1 [facility] Comment on above: Performed By: #### C MP, CBC, ETOH #### [address] Protein [Mass/Vol] 7.2 g/dL Normal 6.1-7.9 [facility] Comment on above: Performed By: #### C MP, CBC, ETOH #### [address] Sodium [Moles/Vol] 137 mmol/L Normal 136-146 [facility] Comment on above: Performed By: #### C MP, CBC, ETOH #### [address] Urea nitrogen [Mass/Vol] 6 mg/dL Low 9-23 [facility] Comment on above: Performed By: #### C MP, CBC, ETOH #### [facility] [address] [place] [address] [place] Drug Screen,Urineon 03-26-20 21 Amphetamine Screen,Urine Negative Normal Negative [facility] Comment on above: Performed By: #### S OFIANEG, COVID-19 JENNY #### [place] [address] [place] Barbiturate Screen,Urine Negative Normal Negative [facility] Comment on above: Performed By: #### S OFIANEG, COVID-19 JENNY #### [place] [address] [place] Benzodiazepines Screen,Urine Negative Normal Negative [facility] Comment on above: Performed By: #### S OFIANEG, COVID-19 JENNY #### [place] [address] [place] Cannabinoid Screen,Urine Positive High Negative [facility] Comment on above: Result Comment: Thes e are unconfirmed results and should not be used for legal purposes. Drug Cut-Off Concentration: AMPH 1000 ng/mL HANY 200 ng/mL TITO 200 ng/mL COCM 300 ng/mL OP 300 ng/mL PCP 25 ng/mL THC 20 ng/mL PERFORMED BY: [place] [address] PATHOLOGIST HYPERTRICHOLOGIST JULIA GUARDADO M.D. Performed By: #### S OFIANEG, COVID-19 JENNY #### [place] [address] [place] Cocaine Screen,Urine Negative Normal Negative [facility] Comment on above: Performed By: #### S OFIANEG, COVID-19 JENNY #### [facility] [address] [place] [address] [place] Opiate Screen,Urine Negative Normal Negative [facility] Comment on above: Performed By: #### S OFIANEG, COVID-19 JENNY #### [place] [address] [place] Phencyclidine Screen,Urine Negative Normal Negative [facility] Comment on above: Performed By: #### S OFIANEG, COVID-19 JENNY #### [facility] [address] Ethyl Alcohol Profileon 02-27 Ethanol [Mass/Vol] mg/dL Normal [facility] Comment on above: Performed By: #### C MP, CBC, ETOH #### [facility] [address] Percent Ethanol Not performed Normal [facility] Comment on above: Result Comment: PERF ORMED BY: [place] [address] PATHOLOGIST HYPERTRICHOLOGIST JULIA GUARDADO M.D. Performed By: #### C MP, CBC, ETOH #### [address] HCG,Urineon 03-26-2021 Beta HCG ( test) Ql (U) Negative Normal [facility] Comment on above: Order Comment: Name Collection Type:: Clean-Voided Midstream Result Comment: PERF ORMED BY: [place] [address] PATHOLOGIST HYPERTRICHOLOGIST JULIA GUARDADO M.D. Performed By: #### U RDS, UHCG, UA #### [address] Jenny Ag Negativeon 03-26-20 21 Jenny Ag Negative Negative Normal Negative [facility] Comment on above: Result Comment: This is a duplicate Jenny SARS Antigen (YOSEF) result to be used for statistical tracking purpose only. PERFORMED BY: [place] [address] PATHOLOGIST HYPERTRICHOLOGIST JULIA GUARDADO M.D. Performed By: #### S OFIANEG, COVID-19 JENNY #### [address] Urinalysison 03-26-2021 Appearance (U) Clear Normal Clear [facility] Comment on above: Order Comment: Name Collection Type:: Clean-Voided Midstream Performed By: #### U RDS, UHCG, UA #### [facility] [address] [place] [address] [place] Bilirubin,Urine Negative Normal Negative [facility] Comment on above: Order Comment: Name Collection Type:: Clean-Voided Midstream Performed By: #### U RDS, UHCG, UA #### [facility] [address] Color (U) Yellow Normal Yellow [facility] Comment on above: Order Comment: Name Collection Type:: Clean-Voided Midstream Performed By: #### U RDS, UHCG, UA #### [facility] [address] [place] [address] [place] Glucose Ql (U) Normal Normal Normal [facility] Comment on above: Order Comment: Name Collection Type:: Clean-Voided Midstream Performed By: #### U RDS, UHCG, UA #### [place] [address] [place] Ketones Ql (U) Negative Normal Negative [facility] Comment on above: Order Comment: Name Collection Type:: Clean-Voided Midstream Performed By: #### U RDS, UHCG, UA #### [facility] [address] [place] [address] Leukocyte esterase Test strip Ql (U) Negative Normal Negative [facility] Comment on above: Order Comment: Name Collection Type:: Clean-Voided Midstream Performed By: #### U RDS, UHCG, UA #### [facility] [address] [place] [address] [place] Nitrite,Urine Negative Normal Negative [facility] Comment on above: Order Comment: Name Collection Type:: Clean-Voided Midstream Performed By: #### U RDS, UHCG, UA #### [facility] [address] [place] [address] [place] Occult Blood,Urine Negative Normal Negative [facility] Comment on above: Order Comment: Name Collection Type:: Clean-Voided Midstream Performed By: #### U RDS, UHCG, UA #### [facility] [address] [place] [address] [place] pH (U) 6.0 [pH] Normal 5.0-9.0 [facility] Comment on above: Order Comment: Name Collection Type:: Clean-Voided Midstream Performed By: #### U RDS, UHCG, UA #### [facility] [address] [place] [address] [place] Protein,Urine Negative Normal Negative [facility] Comment on above: Order Comment: Name Collection Type:: Clean-Voided Midstream Performed By: #### U RDS, UHCG, UA #### [facility] [address] Specificy Tiger,Urine 1.010 Normal 1.001-1.030 [facility] Comment on above: Order Comment: Name Collection Type:: Clean-Voided Midstream Performed By: #### U RDS, UHCG, UA #### [facility] [address] Urobilinogen,Urine Normal Normal Normal [facility] Comment on above: Order Comment: Name Collection Type:: Clean-Voided Midstream Performed By: #### U RDS, UHCG, UA #### [address] ED NOTEon 10-12-2018 ED NOTE HNO ID: [id number] Author: Melva NinaRn) Radha, JOCELINE Service: Nursing Author Type: Registered Nurse Type: ED Notes Filed: 10/12/2018 11:29 AM Note Text: Patient given discharge prescriptions of Augmentin and follow up instructions. Patient verbalizes understanding of education. VSS, left stable and ambulatory. [facility] ED NOTE HNO ID: [id number] Author: Melva NinaRn) JOCELINE Garcia Service: Nursing Author Type: Registered Nurse Type: ED Notes Filed: 10/12/2018 11:13 AM Note Text: Steri strips applied to left finger [facility] ED NOTE HNO ID: [id number] Author: Melva NinaRn) Radha, JOCELINE Service: Nursing Author Type: Registered Nurse Type: ED Notes Filed: 10/12/2018 9:34 AM Note Text: Patient states was bit by a dog at work this morning around 0845. Dog was not UTD on shots. She had a tetanus shot and rabies vaccines 4 years ago while at work in [place]. Bleeding is controlled. 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 Onset was 8:30 AM, with stable course since that time. 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 Unknown vaccination status but animal can be observed. Patient denies weakness or bony tenderness. Symptoms are exacerbated by nothing. Symptoms are relieved by cleansed with Betadine. Associated symptoms include numbness in right finger tip, chronic. Tetanus is up to date. Has had rabies vaccine. HPI No past medical history on file. PAST SURGICAL HISTORY Procedure Laterality Date - SECTION HX - ORTHOPEDICS SURGERY HX tendon repair right arm No family history on file. Social History Social History Main Topics - Smoking status: Current Every Day Smoker Packs/day: 0.25 Types: Cigarettes - Smokeless tobacco: Never Used - Alcohol use No - Drug use: Unknown - Sexual activity: Not on file ALLERGIES No Known Allergies Review of Systems Constitutional: Negative for chills and fever. Neurological: Negative for dizziness, weakness and headaches. Hematological: Does not bruise/bleed easily. All other systems reviewed and are negative. Physical Exam BP 112/68 Pulse 78 Temp (Src) 98.4 (Oral) Resp 18 Ht 5' 8 (1.73m) Wt 165 lb (74.8kg) SpO2 100% LMP 09/16/2018 BMI 25.09 kg/(m2). Physical Exam Constitutional: She appears well-developed. No distress. HENT: Head: Normocephalic. Eyes: Conjunctivae are normal. Neck: Neck supple. Cardiovascular: Normal rate, regular rhythm and intact distal pulses. No murmur heard. Pulmonary/Chest: Effort normal. She exhibits no tenderness. Abdominal: She exhibits no distension. There is rebound. Musculoskeletal: Normal range of motion. She exhibits no edema, tenderness or deformity. DIP/PIP function intact Decreased sensation to finger tips, chronic No bony tenderness Neurological: She is alert. Skin: Skin is warm and dry. Puncture wound right index finger pad, no bleeding or hematoma 1 cm superficial laceration (skin flap) left index finger pad, no avulsion, gapping, bleeding or hematoma Does not involve nailbed Psychiatric: She has a normal mood and affect. Nursing note and vitals reviewed. Diagnostic Testing ED Labs Ordered and Reviewed - No data to display It is not felt that labwork or imaging is indicated at this time. Procedures ED Course / Clinical Impression Clinical Impressions as of Oct 12 1056 Dog bite of index finger, initial encounter MDM / Disposition / Plan MDM Course: Vital signs were reviewed. Triage records were reviewed. Nursing notes were reviewed and incorporated. : Consent: A procedure or transfusion was performed - No Patient declined Xray. The patient's wounds were cleansed, irrigated and dressed by nursing. Left index finger laceration closed with steri-strips by nursing. Prescription for Augmentin given. FROI completed. Work noted provided. The patient was DISCHARGED: Counseled patient regarding suspected diagnosis AND wound care instructions AND need for follow-up. Discharged home with verbal and written instructions. They were instructed to return as needed for persistent or worsening symptoms or any new concerns. Condition at time of disposition: stable SIGNATURE: MD Tameka Davis MD 10/12/18 1112 [facility] CBC with Diffon 01-07-2018 Abs. Basophil 0.05 k/uL Normal 0.00-0.20 [facility] Comment on above: Performed By: #### C DP ####[facility] [id number] [place] [address] #### CP ####[address] [place] [address] Abs.Neutrophil (Seg) 5.75 k/uL Normal 1.50-8.10 [facility] Comment on above: Performed By: #### C DP ####[facility] [address] [place] [address] #### CP ####[address] [place] [address] Basophils/100 WBC Auto (Bld) 1 % Normal 0-2 [facility] Comment on above: Performed By: #### C DP ####[address] [address] #### CP ####[address] [place] [address] Eosinophils 0.03 10*3/uL Normal 0.00-0.44 [facility] Comment on above: Performed By: #### C DP ####[address] [address] #### CP ####[address] [place] [address] Eosinophils/100 leukocytes 0 % Low 1-4 [facility] Comment on above: Performed By: #### C DP ####[address] [address] #### CP ####[address] [place] [address] Erythrocyte distribution width Auto Ratio (RBC) 15.3 % High 11.8-14.4 [facility] Comment on above: Performed By: #### C DP ####[address] [address] #### CP ####[address] [place] [address] Erythrocytes (RBC) 4.72 10*6/uL Normal 3.95-5.11 [facility] Comment on above: Performed By: #### C DP ####[address] [address] #### CP ####[address] [place] [address] Erythrocytes (RBC) 0.0 per 100 WBC Normal 0.0 M [facility] Comment on above: Performed By: #### C DP ####[address] [address] #### CP ####[address] [place] [address] Granulocytes/100 WBC (Bld) 0.03 k/uL Normal 0.00-0.30 [facility] Comment on above: Result Comment: Perf ormed at [address] [address] Performed By: #### C DP ####[address] [address] #### CP ####[address] [place] [id number] Hematocrit (HCT) 39.1 % Normal 36.3-47.1 [facility] Comment on above: Performed By: #### C DP ####[address] [address] #### CP ####[address] [place] [address] Hemoglobin mass conc (Bld) 12.6 g/dL Normal 11.9-15.1 [facility] Comment on above: Performed By: #### C DP ####[address] [address] #### CP ####[address] [place] [address] Immature granulocytes #/vol (Bld) 0 % Normal 0 [facility] Comment on above: Performed By: #### C DP ####[address] [address] #### CP ####[address] [place] [address] Lymphocytes 1.46 10*3/uL Normal 1.10-3.70 [facility] Comment on above: Performed By: #### C DP ####[address] [address] #### CP ####[address] [place] [address] Lymphocytes/100 leukocytes 18 % Low 24-43 [facility] Comment on above: Performed By: #### C DP ####[address] [address] #### CP ####[address] [place] [id number] MCH 26.7 pg Normal 25.2-33.5 [facility] Comment on above: Performed By: #### C DP ####[address] [address] #### CP ####[address] [place] [address] MCHC mass conc (RBC) 32.2 g/dL Normal 28.4-34.8 [facility] Comment on above: Performed By: #### C DP ####[address] [address] #### CP ####[address] [place] [address] MCV 82.8 fL Normal 82.6-102.9 [facility] Comment on above: Performed By: #### C DP ####[address] [address] #### CP ####[address] [place] [address] Monocytes 0.70 10*3/uL Normal 0.10-1.20 [facility] Comment on above: Performed By: #### C DP ####[address] [address] #### CP ####[address] [place] [address] Monocytes/100 leukocytes 9 % Normal 3-12 [facility] Comment on above: Performed By: #### C DP ####[address] [address] #### CP ####[address] [place] [address] Neutrophil (Seg) 72 % High 36-65 [facility] Comment on above: Performed By: #### C DP ####[address] [address] #### CP ####[address] [place] [address] Platelet mean volume (PMV) 9.9 fL Normal 8.1-13.5 [facility] Comment on above: Performed By: #### C DP ####[address] [address] #### CP ####[address] [place] [address] Platelets 330 10*3/uL Normal 138-453 [facility] Comment on above: Performed By: #### C DP ####[address] [address] #### CP ####[address] [place] [address] WBC (Leukocytes) 8.0 10*3/uL Normal 3.5-11.3 [facility] Comment on above: Performed By: #### C DP ####[address] [address] #### CP ####[address] [place] [address] Auto Diff Performed NOT REPORTED [facility] Comment on above: Performed By: #### C DP ####[address] [address] #### CP ####[address] [place] [address] Erythrocyte morphology NOT REPORTED Normal [facility] Comment on above: Performed By: #### C DP ####[address] [address] #### CP ####[address] [place] [address] Platelets NOT REPORTED Normal [facility] Comment on above: Performed By: #### C DP ####[address] [address] #### CP ####[address] [place] [address] WBC Morphology NOT REPORTED Normal [facility] Comment on above: Performed By: #### C DP ####[address] [address] #### CP ####[address] [place] [address] CT ABDOMEN PELVIS WO CONTRAS Ton 01-07-2018 CT ABDOMEN PELVIS WO CONTRAST REPORT: CT abdomen and pelvis without contrastTECHNIQUE: Contiguous thin axial slices through the abdomen and pelvis obtained without contrast. Axial, coronal and sagittal reformats were made from the source images.INDICATION: Left-sided abdominal painFINDINGS:ABDOMEN: No renal, ureteral or bladder calcifications seen. No hydronephrosis or perinephric inflammation. The visualized lung bases are clear. The liver is normal in size and contour. No focal hepatic lesion is identified on these noncontrast enhanced images. Normal CT appearance of the gallbladder. No intra-or extrahepatic biliary ductal dilation. The adrenal glands, spleen and pancreas are within normal unenhanced limits. Non-aneurysmal abdominal aorta. No free intraperitoneal air.PELVIS: No dilated loops of bowel, bowel wall thickening or pneumatosis. The appendix is well-visualized and is normal. Uterus and ovaries are within normal limits for patient's age. No free pelvic fluid. Osseous structures are normal.Final report electronically signed by Laurence Huitron on 01/07/2018 2:03 PMIMPRESSION: No acute process seen in the abdomen or pelvisInterpreted by:ANGELICA Barrettigned by:Laurence Huitron MD01/07/18inal result Normal [facility] Comp Metabolic Profon 2017 (cont.) Normal [facility] Comment on above: Result Comment: Aver age GFR for 30-39 years old: 107 mL/min/1.73sq mChronic Kidney Disease: <60 mL/min/1.73sq mKidney failure: <15 mL/min/1.73sq meGFR calculated using average adult body mass. Additional eGFR calculator available at:http://www.[employer]/multiple_crcl_2012.htm Performed By: #### C DP ####[address] [address] #### CP ####[address] [place] [address] Alanine aminotransferase (ALT) 7 U/L Normal 5-33 [facility] Comment on above: Performed By: #### C DP ####[address] [address] #### CP ####[address] [place] [address] Albumin 4.6 g/dL Normal 3.5-5.2 [facility] Comment on above: Performed By: #### C DP ####[address] [address] #### CP ####[address] [place] [address] Albumin/Globulin Ratio 1.5 {ratio} Normal 1.0-2.5 [facility] Comment on above: Performed By: #### C DP ####[address] [address] #### CP ####[address] [place] [address] Alkaline Phos 65 U/L Normal 35-104 [facility] Comment on above: Performed By: #### C DP ####[address] [address] #### CP ####[address] [place] [address] Anion gap 13 mmol/L Normal 9-17 [facility] Comment on above: Performed By: #### C DP ####[address] [address] #### CP ####[address] [place] [address] Aspartate aminotransferase (AST) 14 U/L Normal <32 [facility] Comment on above: Performed By: #### C DP ####[address] [address] #### CP ####[address] [place] [address] Bilirubin Ql (U) 0.18 mg/dL Low 0.3-1.2 [facility] Comment on above: Performed By: #### C DP ####[address] [address] #### CP ####[address] [place] [address] BUN/CRE Ratio 13 Normal 9-20 [facility] Comment on above: Performed By: #### C DP ####[address] [address] #### CP ####[address] [place] [address] Calcium 9.6 mg/dL Normal 8.6-10.4 [facility] Comment on above: Performed By: #### C DP ####[address] [address] #### CP ####[address] [place] [address] Chloride 100 mmol/L Normal 98-107 [facility] Comment on above: Performed By: #### C DP ####[address] [address] #### CP ####[address] [place] [address] CO2 24 mmol/L Normal 20-31 [facility] Comment on above: Performed By: #### C DP ####[address] [address] #### CP ####[address] [place] [address] Creatinine 0.63 mg/dL Normal 0.50-0.90 [facility] Comment on above: Performed By: #### C DP ####[address] [address] #### CP ####[address] [place] [address] eGFR (non-black) mL/min/{1.73_m2} Normal >60 [facility] Comment on above: Performed By: #### C DP ####[address] [address] #### CP ####[address] [place] [address] Glucose mass conc 98 mg/dL Normal 70-99 [facility] Comment on above: Performed By: #### C DP ####[address] [address] #### CP ####[address] [place] [address] Potassium molar conc 4.1 mmol/L Normal 3.7-5.3 [facility] Comment on above: Performed By: #### C DP ####[address] [address] #### CP ####[address] [place] [address] Protein 7.7 g/dL Normal 6.4-8.3 [facility] Comment on above: Performed By: #### C DP ####[address] [address] #### CP ####[address] [place] [address] Sodium 137 mmol/L Normal 135-144 [facility] Comment on above: Performed By: #### C DP ####[address] [address] #### CP ####[address] [place] [address] Staging: Normal [facility] Comment on above: Result Comment: Stag e 1: Some kidney damage normal GFRStage 2: Mild kidney damage GFR 60-89Stage 3: Moderate kidney damage GFR 30-59Stage 4: Severe kidney damage GFR 15-29Stage 5: Severe kidney damage GFR <15ESRD - chronic treatment by dialysis or transplantPerformed at [address] [place] [address] Performed By: #### C DP ####[place] [address] [place] [address] #### CP ####[address] [place] [address] Urea nitrogen 8 mg/dL Normal 6-20 [facility] Comment on above: Performed By: #### C DP ####[place] [address] [place] [address] #### CP ####[address] [place] [address] ED Provider Noteon 8 HIM IP Note OR Mlt Normal [facility] HCG, Quanton 01-07-2018 HCG, Quant <1 Normal <5 [facility] Comment on above: Result Comment: Non- preg premeno <=5Postmeno <=8Male <=3If HCG results do not concur with clinical observations, additional testing to confirm result is recommended. This test is not labeled for use as a tumor marker.Performed at [address] [place] [address] Performed By: #### B HCG ####[address] [place] [address] Urinalysis, Routineon 2017 Acetaminophen mass conc 1+ Abnormal NEG [facility] Comment on above: Performed By: #### U Melvina UMICAO ####[address] [place] [address] Bilirubin (direct) Negative Normal NEG [facility] Comment on above: Performed By: #### U A UMICAO ####[address] [place] [address] Hemoglobin mass conc (Bld) TRACE Abnormal NEG [facility] Comment on above: Performed By: #### U A UMICAO ####[address] [place] [address] Nitrite,Ur Negative Normal NEG [facility] Comment on above: Performed By: #### U A, UMICAO ####[address] [place] [address] Turbidity CLEAR Normal CLEAR [facility] Comment on above: Performed By: #### U A, UMICAO ####[address] [place] [address] Urine, color YELLOW Normal YEL [facility] Comment on above: Performed By: #### U A, UMICAO ####[address] [place] [address] Urine, glucose presence Negative Normal NEG [facility] Comment on above: Performed By: #### U A, UMICAO ####[address] [place] [address] Urine, leukocyte esterase presence Negative Normal NEG [facility] Comment on above: Result Comment: Perf ormed at [address] [place] [address] Performed By: #### U A, UMICAO ####[address] [place] [address] Urine, pH 6.0 [pH] Normal 5.0-9.0 [facility] Comment on above: Performed By: #### U A, UMICAO ####[address] [place] [address] Urine, protein presence Negative Normal NEG [facility] Comment on above: Performed By: #### U A, UMICAO ####[address] [place] [address] Urine, specific gravity 1.025 High 1.010-1.020 [facility] Comment on above: Performed By: #### U A, UMICAO ####[address] [place] [address] Urobilinogen,Ur Normal Normal NORM [facility] Comment on above: Performed By: #### U A, UMICAO ####[address] [place] [address] Comment NOT REPORTED Normal [facility] Comment on above: Performed By: #### U A, UMICAO ####[address] [place] [address] Urinalysis,Microon 8 ----- Normal [facility] Comment on above: Performed By: #### U A, UMICAO ####[address] [place] [address] Urine WBC's 0 TO 2 Normal 0-5 [facility] Comment on above: Performed By: #### U A, UMICAO ####[address] [place] [address] Urine, epithelial cells in sediment 2 TO 5 Normal 0-25 [facility] Comment on above: Result Comment: Perf ormed at [address] [place] [address] Performed By: #### U BRIAN HeinICAO ####[address] [place] [address] Urine, erythrocytes None Normal 0-2 [facility] Comment on above: Performed By: #### U A, UMICAO ####[address] [place] [address] Epithelial, Renal NOT REPORTED Normal 0 [facility] Comment on above: Performed By: #### U A, UMICAO ####[address] [place] [address] Mucus Strands NOT REPORTED Normal NONE [facility] Comment on above: Performed By: #### U A, UMICAO ####[address] [place] [address] Other Observations NOT REPORTED Normal NREQ [facility] Comment on above: Performed By: #### U A, UMICAO ####[address] [place] [address] Trichomonas NOT REPORTED Normal NONE [facility] Comment on above: Performed By: #### U A, UMICAO ####[address] [place] [address] Urine, amorphous sediment presence in sediment NOT REPORTED Normal NONE [facility] Comment on above: Performed By: #### U A, UMICAO ####[address] [place] [address] Urine, bacteria in sediment NOT REPORTED Normal [facility] Comment on above: Performed By: #### U A, UMICAO ####[address] [place] [address] Urine, casts in sediment NOT REPORTED Normal [facility] Comment on above: Performed By: #### U A, UMICAO ####[address] [place] [address] Urine, crystals in sediment NOT REPORTED Normal [facility] Comment on above: Performed By: #### U A, UMICAO ####[address] [place] [address] Urine, yeast presence in sediment NOT REPORTED Normal [facility] Comment on above: Performed By: #### U A, UMICAO ####[address] [place] [address] Encounters Encounter Date Encounter Type Care Provider Facility Start: 10-20-2023 End: 10-20-2023 ambulatory RADHA SARAH Not Available Start: 05-18-2022 End: 05-20-2022 Evaluation and management of inpatient DR GILMA ISABEL . Facility: Start: 05-15-2022 Encounter for preprocedural laboratory examination DR GILMA ISABEL . [facility] Start: 05-14-2022 End: 05-15-[address] GILMA ISABEL . Facility:[facility] Start: 05-14-2022 End: 05-15-2022 Encounter for preprocedural laboratory examination DR GILMA ISABEL . Facility:[facility] Start: 05-13-[address] GILMA ISABEL . Fa cility:[facility] Start: 04-20-2022 End: 04-20-[address] GILMA ISABEL . Facility:[facility] Start: 04-15-2022 End: 04-16-[address] GILMA ISABEL . Facility:[facility] Start: 03-25-2022 End: 03-25-2022 ambulatory ROSHAN GALLOWAY Facility:[facility] Start: 03-20-2022 ambulatory ROSHAN GALLOWAY Facility: [facility] Start: 03-04-2022 Encounter for genera l adult medical examination without abnormal findings ROSHAN GALLOWAY [facility] Start: 03-04-2022 Encounter for other preprocedural examination DR GILMA ISABEL . [facility] Start: 03-02-2022 End: 03-02-[address] GILMA ISABEL . Facility:[facility] Start: 02-26-2022 ambulatory ROSHAN GALLOWAY Facility: [facility] Start: 02-25-2022 End: 02-26-2022 Encounter for general adult medical examination without abnormal findings ROSHAN GALLOWAY Facility:[facility] Start: 02-25-2022 End: 02-26-2022 ambulatory ROSHAN GALLOWAY Facility:[facility] Start: 02-25-2022 End: 02-26-2022 Encounter for other preprocedural examination DR GILMA ISABEL . Facility:[facility] Start: 10-12-2018 End: 10-12-2018 Emergency department patient visit [facility] Start: 01-07-2018 End: 01-07-2018 Emergency department patient visit [facility] Procedures Date Procedure Procedure Detail Performing Clinician Start: 05-18-2022 Repair Small Intesti ne, Open Approach DR GILMA ISABEL . Start: 05-18-2022 Resection of Bilater al Fallopian Tubes, Open Approach DR GILMA ISABEL . Start: 05-18-2022 Resection of Bilater al Ovaries, Open Approach DR GILMA ISABEL . Start: 05-18-2022 Resection of Uterus, Open Approach DR GILMA ISABEL . Start: 05-18-2022 Dilation of Bilatera l Ureters with Intraluminal Device, Via Natural or Artificial Opening Endoscopic DR GILMA ISABEL . Start: 01-07-2018 Ct abdomen & pelvis w/o contrast material Start: 01-07-2018 CBC WITH AUTO DIFFERENTIAL Start: 01-07-2018 COMPREHENSIVE METABOLIC PANEL Start: 01-07-2018 HCG, QUANTITATIVE, Start: 01-07-2018 Microscopic urinalysis Start: 01-07-2018 Urinalysis Payers Date Payer Category Payer Unknown [id number] 2017 Unknown [id number] 1985 Unknown [id number] 2.16.84 [id number] 1985 Unknown [id number] 2.16.84 [id number] 1987 Unknown [id number] 2.16.84 [id number] 1987 Unknown [id number] 2.16.84 [id number] 1987 Unknown [id number] 2.16.84 [id number] 1987 Unknown [id number] 2.16.84 [id number] 1987 Unknown [id number] 2.16.84 [id number] 1987 Unknown [id number] 2.16.84 [id number] 1987 Unknown [id number] 2.16.84 [id number] 1987 Unknown [id number] 2.16.84 [id number] 1987 Unknown [id number] 2.16.84 [id number] 1987 Unknown [id number] 2.16.84 [id number] 1987 Unknown [id number] 2.16.84 [id number] 1957 Self-pay 1957 Unknown [id number] Summary Purpose Family History No Family History Records FoundNo Family History Records FoundNo Family History Records FoundNo Family History Records FoundNo Family History Records FoundNo Family History Records Found Advance Directives No Advanced Directives Records FoundNo Advanced Directives Records FoundNo Advanced Directives Records FoundNo Advanced Directives Records FoundNo Advanced Directives Records FoundNo Advanced Directives Records Found Additional Source Comments INFORMATION SOURCE (unrecogn ized section and content) DATE CREATED AUTHOR 03/17/2018 [facility] DATE CREATED AUTHOR AUTHOR'S ORGANIZ ATION 10/17/2018 [facility] DATE CREATED AUTHOR AUTHOR'S ORGANIZ ATION 03/02/2022 [facility] DATE CREATED AUTHOR AUTHOR'S ORGANIZ ATION 05/27/2022 [facility] DATE CREATED AUTHOR AUTHOR'S ORGANIZ ATION 02/03/2023 [facility] DATE CREATED AUTHOR AUTHOR'S ORGANIZ ATION 10/21/2023 [facility] FOR RECORDS PERTAINING TO PATIENTS WHO ARE OR HAVE BEEN ENROLLED IN A CHEMICAL DEPENDENCY/SUBSTANCEABUSE PROGRAM, SOME INFORMATION MAY BE OMITTED. This clinical summary was aggregated from multiple sources. Caution should be exercised in using it in the provision of clinical care. This summary normalizes information from multiple sources, and as a consequence, information in this document may materially change the coding, format and clinical context of patient data. In addition, data may be omitted in some cases. CLINICAL DECISIONS SHOULD BE BASED ON THE PRIMARY CLINICAL RECORDS. [facility] [employer] provides no warranty or guarantee of the accuracy or completeness of information in this document.
--- NOTE | 2023-11-07 18:14 | ECG_ITS ---
The [facility] Test Date: 2023-11-07 Pat Name: NAJMA CASTELLON Department: Room: - Gender: Female [employer]: : 1985 Requested By: ROSHAN GALLOWAY Order Number: [id number] Reading MD: JORGE MARROQUIN Measurements Intervals [place] Rate: 64 P: 58 CO: 112 QRS: 70 QRSD: 84 T: 42 QT: 392 QTc: 402 Interpretive Statements 1100 Sinus rhythm 2210 Short CO interval [address] depression 9150 abnormal ECG No previous ECG available for comparison Electronically Signed On 11-08-2023 6:48:46 EST by JORGE MARROQUIN
--- NOTE | 2023-11-07 18:14 | XR_ITS ---
The [address] [address] Patient Name: NAJMA CASTELLON MRN: [id number] date: 1985 Sex: F Assigned Patient Location: ER Current Patient Location: ER Accession/Order Number: [id number] Exam Date: 11/07/2023 18:35 Report Date: 11/07/2023 19:40 At the request of: AGUSTIN MILAN Procedure: XR chest 2V EXAM: XR chest 2V HISTORY: The patient is a 38-year-old female, SOB COMPARISON: None. FINDINGS: The lungs are well-inflated and clear with no confluent airspace infiltrates, pleural effusions, or pneumothoraces. The heart and mediastinum are within normal limits. The trachea is midline. There is no loss of thoracic vertebral body height. XR/XR chest 2V IMPRESSION: Normal. Electronically authenticated by: HALLE BROWNE Date: 11/07/2023 19:40
--- NOTE | 2023-11-07 18:16 | ED.GENADUL1 ---
HPI - General Adult General Chief complaint: Shortness of Breath/Dyspnea Stated complaint: WEAKNESS/DIFFICULTY BREATHING Time Seen by Provider: 11/07/23 17:54 Source: patient Mode of arrival: walk-in Limitations: no limitations History of Present Illness HPI narrative: 38 -year-old Female presents to the ER for evaluation of Shortness of breath, chest pain. For the past 2 months she has been having symptoms of fatigue, swollen lymph nodes. 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 She saw her family doctor Week with multiple labs ordered outpatient. Patient notes that the generalized fatigue symptoms have worsened through the weekend. She notes some shortness of breath on exertion and chest pain in the right side of her chest wall that brought her in this evening. Patient Admits to occasional THC use, states she uses a nicotine chew, Remote History of alcohol abuse. Patient is on estradiol, states she has been having night sweats.Also notes she has chronic joint pain that even preceded this most recent several months. Patient states she has taking no medication for her known anxiety and depression but is participating in therapy. Despite my depression have never had chest pain, shortness of breath and so much fatigue. Labs- reviewed from 11/04/2023 Onset (ago): minute(s) Location: Denies head Severity: moderate Relieving factors: Reports none Treatments prior to arrival: Reports none Related Data Home Medications Medication Instructions Recorded Confirmed amoxicillin 500 mg capsule 500 mg PO Q12H 11/07/23 11/07/23 atomoxetine 18 mg capsule 18 mg PO DAILY 11/07/23 11/07/23 buspirone 5 mg tablet 5 mg PO DAILY 11/07/23 11/07/23 lamotrigine 200 mg tablet 200 mg PO Q12H 11/07/23 11/07/23 lurasidone 40 mg tablet 40 mg PO DAILY 11/07/23 11/07/23 viloxazine 100 mg capsule,extended mg PO DAILY 11/07/23 release 24 hr (Qelbree) Allergies Allergy/AdvReac Type Severity Reaction Status Date / Time No Known Drug Allergies Allergy Verified 11/07/23 17:53 Review of Systems ROS Constitutional Denies: fever or chills Eyes Denies: change in vision Ears, nose, mouth, and throat Denies: throat pain or neck pain Cardiovascular Reports: chest pain and shortness of breath with exertion; Denies: palpitations, edema or swelling of feet/ankles Respiratory Reports: shortness of breath; Denies: cough, wheezing or chest congestion Gastrointestinal Denies: abdominal pain, nausea or vomiting Genitourinary Denies: painful urination Musculoskeletal Reports: joint pain; Denies: back pain, neck pain, extremity pain or extremity swelling Integumentary/Breast Denies: rash or itching Neurological Denies: headache, weakness in extremities (+ fatigue), lack of coordination or dizziness Psychiatric Reports: anxiety Hematologic/Lymphatic Denies: easy bruising Allergic/Immunologic Denies: hives PFSH PFS Social History Smoking status: Never smoker Exam Narrative Exam Narrative: Nurses notes and vital signs reviewed and patient is not hypoxic. General: The patient appears well and in no apparent distress. Patient is resting comfortably on cart. Skin: Warm, dry, no pallor noted. Head: Normocephalic, atraumatic Neck: Supple, trachea mid-line, no tenderness, no lymphadenopathy Eye: Pupils are equal, round and reactive to light, EOMI Ears, Nose, Mouth, and Throat: TM are clear, normal light reflex, oral mucosa is moist, no posterior oropharynx erythema or hypertrophy, uvula is mid-line Cardiovascular: Regular Rate and Rhythm Respiratory: Patient is in no distress, no accessory muscle use, lungs are clear to auscultation, no wheezing, rales or rhonchi. Chest Wall: no tenderness, no Axillary or supraclavicular adenopathy. Back: non-tender, no CVA tenderness Musculoskeletal: normal ROM, no tenderness, no swelling GI: Normal bowel sounds, no tenderness to palpation, no masses appreciated. No rebound, guarding, or rigidity noted. Neurological: A&O x4 Psychiatric: Cooperative Constitutional Vital Signs, click to edit/add: Last Vital Signs Temp 98.4 F 11/07/23 17:53 Pulse 52 L 11/07/23 19:30 Resp 14 11/07/23 19:30 BP 117/73 11/07/23 19:27 Pulse Ox 95 11/07/23 19:30 Course Vital Signs Vital signs: Vital Signs Temperature 98.4 F 11/07/23 17:53 Pulse Rate 78 11/07/23 17:53 Respiratory Rate 18 11/07/23 17:53 Blood Pressure 134/84 11/07/23 17:53 Pulse Oximetry 99 11/07/23 17:53 Temperature 98.4 F 11/07/23 17:53 Pulse Rate 52 L 11/07/23 19:30 Respiratory Rate 14 11/07/23 19:30 Blood Pressure 117/73 11/07/23 19:27 Pulse Oximetry 95 11/07/23 19:30 Medical Decision Making MDM Narrative Medical decision making narrative: Exam, patient in no distress relatively talkative at bedside. Admits to anxiety and depression, not currently on medication had been treated medically for a long time and try to explore different avenue with therapy. We discussed her symptoms, generalized fatigue, subjective adenopathy ( not present today), currently on amoxicillin from PCP . chronic joint pain... would recommend Rheum eval.. pt Generic clinic with large and small animals, symptoms for several months and recommend Lyme titer. Patient acute complaint of shortness of breath and chest pain has been present for most of the day and yesterday, D-dimer and cardiac enzymes performed. Stated, she was concerned with her heart rate dropping to 50 bpm. Discussed patient resting, she admits to having a normal resting heart rate of 60 even with activity. Blood pressure is stable. Patient demonstrates some anxiety regarding her symptoms. We discussed that she was recently prescribed amoxicillin by her PCP and just started the medication. We discussed her shortness of breath, chest discomfort. Length of symptoms with labs and feel she is safe to be discharged home. Recommend continued follow-up with PCP, reevaluate referral to rheumatology and return to ER if symptoms return or worsen. Patient admits to having positive testing for lupus when she was in her early 20s. Lab testing for Lyme disease still pending The patient is to followup with primary care physician in next 2-3 days or to return to the emergency department should any of the signs or symptoms worsen or new symptoms develop. Patient had questions answered. The patient agrees with the following Diagnosis and Treatment plan and the patient will be discharged home. Lab Data Lab results reviewed: Yes I reviewed the patient's lab results Labs: Lab Results 11/07/23 11/07/23 11/07/23 Range/Units 18:25 18:29 19:25 WBC 6.8 (4.0-11.0) 10^3/uL RBC 4.81 (4.20-5.40) 10^6/uL Hgb 13.5 (12.0-16.0) g/dL Hct 41.9 (36.0-48.0) % MCV 87.1 (81.0-99.0) fL MCH 28.1 (26.7-34.0) pg MCHC 32.2 (29.9-35.2) g/dL RDW 14.2 (11.0-15.0) % Plt Count 338 (150-450) 10^3/uL MPV 9.9 (9.5-13.5) fL Neut % (Auto) 45.5 (43.0-75.0) % Lymph % (Auto) 41.3 (20.5-60.0) % [place] % (Auto) 10.8 (1.7-12.0) % Eos % (Auto) 1.6 (0.9-7.0) % Baso % (Auto) 0.7 (0.2-2.0) % Neut # (Auto) 3.1 (1.4-6.5) 10^3/uL Lymph # (Auto) 2.8 (1.2-3.8) 10^3/uL [place] # (Auto) 0.7 (0.3-0.8) 10^3/uL Eos # (Auto) 0.1 (0.0-0.7) 10^3/uL Baso # (Auto) 0.1 (0.0-0.1) 10^3/uL Abs Immat Gran (auto) 0.01 (0.00-0.03) 10^3/uL Imm/Tot Granulo (auto) 0.1 (0.0-0.5) % D-Dimer 0.20 (<=0.59) mg/L FEU Sodium 140 (136-145) mmol/L Potassium 3.5 (3.5-5.1) mmol/L Chloride 103 (98-107) mmol/L Carbon Dioxide 31.0 (21.0-32.0) mmol/L Anion Gap 9.5 BUN 17.0 (7.0-18.0) mg/dL Creatinine 0.87 (0.55-1.02) mg/dL Est GFR ( Amer) >60 (>=60) Est GFR (Non-Af Amer) >60 (>=60) BUN/Creatinine Ratio 19.5 Glucose 104 (74-106) mg/dL Calcium 8.8 (8.5-10.1) mg/dL Total Creatine Kinase 78 (26-192) U/L CK-MB (CK-2) <0.50 (<=3.60) ng/mL Myoglobin 26 (9-82) ng/mL Troponin I High Sens <4.0 L (4.0-51.3) pg/mL Urine Color Lt. yellow (YELLOW) Urine Clarity Clear (CLEAR) Urine pH 7.0 (5.0-9.0) Ur Specific [place] <=1.005 A (1.005-1.025) Urine Protein Negative (NEG/TRACE) mg/dL Urine Glucose (UA) Negative (NEGATIVE) mg/dL Urine Ketones Negative (NEGATIVE) mg/dL Urine Occult Blood Negative (NEGATIVE) Urine Nitrite Negative (NEGATIVE) Urine Bilirubin Negative (NEGATIVE) Urine Urobilinogen 0.2 (0.2-1.0) EU/dL Ur Leukocyte Esterase Negative (NEGATIVE) Urine Opiates Screen Negative (NEGATIVE) Ur Buprenorphine Scrn Negative (NEGATIVE) Ur Oxycodone Screen Negative (NEGATIVE) Urine Methadone Screen Negative (NEGATIVE) Ur Barbiturates Screen Negative (NEGATIVE) U Tricyclic Antidepress Negative (NEGATIVE) Ur Phencyclidine Scrn Negative (NEGATIVE) Ur Amphetamines Screen Negative (NEGATIVE) U Methamphetamines Scrn Negative (NEGATIVE) U Benzodiazepines Scrn Negative (NEGATIVE) Urine Cocaine Screen Negative (NEGATIVE) U Cannabinoids Screen Negative (NEGATIVE) Influenza Type A Ag Negative Influenza Type B Ag Negative SARS-CoV-2 Ag (CV2AG) Negative (NEGATIVE) Imaging Data Chest x-ray: Attestation: I personally reviewed and interpreted this imaging study as follows: Radiologist's impression: ITS Impressions Chest X-Ray 11/07/23 18:14 IMPRESSION: Normal. Electronically authenticated by: HALLE BROWNE Date: 11/07/2023 19:40 ECG Data Attestation: I personally reviewed and interpreted this ECG as follows: Interpretation: EKG interpretation: Emergency Department physician interpretation, normal sinus rhythm 64bpm, no ectopy, no ST segment elevation, normal axis. Patient asymptomatic resting in bed concerned with bradycardia, repeat EKG shows 53 bpm sinus rhythm Discharge Plan Discharge Chief Complaint: Shortness of Breath/Dyspnea Clinical Impression: Fatigue, Shortness of breath, Chest pain Patient Disposition: Home, Self-Care Time of Disposition Decision: 20:10 Condition: Good Prescriptions / Home Meds: No Action amoxicillin 500 mg capsule 500 mg PO Q12H atomoxetine 18 mg capsule 18 mg PO DAILY Qelbree 100 mg capsule,extended release 24hr PO DAILY lurasidone 40 mg tablet 40 mg PO DAILY lamotrigine 200 mg tablet 200 mg PO Q12H buspirone 5 mg tablet 5 mg PO DAILY Instructions: Fatigue (ED) Stand Alone Forms: Portal Instructions Referrals: ROSHAN GALLOWAY [Primary Care Provider] - As soon as possible
[2023-11-07 18:36] LABS: Basophils Absolute Auto 0.1 10^3/uL (0.0-0.1); Basophils Percent Auto 0.7 % (0.2-2.0); Eosinophils Absolute Auto 0.1 10^3/uL (0.0-0.7); Eosinophils Percent Auto 1.6 % (0.9-7.0); Hematocrit 41.9 % (36.0-48.0); Hemoglobin 13.5 g/dL (12.0-16.0); Immature Granulocytes Abs Auto 0.01 10^3/uL (0.00-0.03); Immature Granulocytes Pct Auto 0.1 % (0.0-0.5); Lymphocytes Absolute Auto 2.8 10^3/uL (1.2-3.8); Lymphocytes Percent Auto 41.3 % (20.5-60.0); Mean Corpuscular HGB Conc 32.2 g/dL (29.9-35.2); Mean Corpuscular Hemoglobin 28.1 pg (26.7-34.0); Mean Corpuscular Volume 87.1 fL (81.0-99.0); Mean Platelet Volume 9.9 fL (9.5-13.5); Monocytes Absolute Auto 0.7 10^3/uL (0.3-0.8); Monocytes Percent Auto 10.8 % (1.7-12.0); Neutrophils Absolute Auto 3.1 10^3/uL (1.4-6.5); Neutrophils Percent Auto 45.5 % (43.0-75.0); Platelet Count 338 10^3/uL (150-450); Red Blood Count 4.81 10^6/uL (4.20-5.40); Red Cell Distribution Width 14.2 % (11.0-15.0); White Blood Count 6.8 10^3/uL (4.0-11.0)
[2023-11-07 18:47] LABS: Influenza Virus A Antigen Negative; Influenza Virus B Antigen Negative; Internal Control Within Normal Limits
[2023-11-07 18:48] LABS: SARS-CoV-2 Ag NEGATIVE (NEGATIVE)
[2023-11-07 18:59] LABS: Anion Gap 9.5; BUN Creatinine Ratio 19.5; Calcium 8.8 mg/dL (8.5-10.1); Chloride 103 mmol/L (98-107); Creatine Kinase 78 U/L (26-192); Creatine Kinase MB <0.50 ng/mL (<=3.60); Estimated GFR (African America >60 (>=60); Estimated GFR (Non-African Ame >60 (>=60); Glucose 104 mg/dL (74-106); Myoglobin 26 ng/mL (9-82); Potassium 3.5 mmol/L (3.5-5.1); Sodium 140 mmol/L (136-145); Troponin I High Sensitivity <4.0 pg/mL (4.0-51.3)
--- NOTE | 2023-11-07 19:14 | ECG_ITS ---
The [facility] Test Date: 2023-11-07 Pat Name: NAJMA CASTELLON Department: Room: - Gender: Female [employer]: : 1985 Requested By: ROSHAN GALLOWAY Order Number: [id number] Reading MD: JORGE MARROQUIN Measurements Intervals [place] Rate: 53 P: 41 AR: 116 QRS: 63 QRSD: 84 T: 16 QT: 412 QTc: 394 Interpretive Statements 1100 Sinus rhythm 2210 Short AR interval [address] depression 9150 abnormal ECG Compared to ECG 11/07/2023 18:02:20 No significant changes Electronically Signed On 11-08-2023 6:49:45 EST by JORGE MARROQUIN
[2023-11-07 19:46] LABS: Bilirubin Urine NEGATIVE (NEGATIVE); Blood Urine NEGATIVE (NEGATIVE); Clarity Urine CLEAR (CLEAR); Color Urine LT. YELLOW (YELLOW); Glucose Urine UA NEGATIVE (NEGATIVE); Ketones Urine NEGATIVE (NEGATIVE); Leukocyte Esterase Urine NEGATIVE (NEGATIVE); Nitrite Urine NEGATIVE (NEGATIVE); Protein Urine NEGATIVE (NEG/TRACE); Specific Gravity Urine <=1.005 (1.005-1.025); Urobilinogen Urine 0.2 EU/dL (0.2-1.0)
[2023-11-07 19:57] LABS: Amphetamine Screen Urine NEGATIVE (NEGATIVE); Barbiturates Screen Urine NEGATIVE (NEGATIVE); Benzodiazepines Screen Urine NEGATIVE (NEGATIVE); Cannabinoid Screen Urine NEGATIVE (NEGATIVE); Cocaine Screen Urine NEGATIVE (NEGATIVE); Methadone Screen Urine NEGATIVE (NEGATIVE); Methamphetamines Screen Urine NEGATIVE (NEGATIVE); Opiate Screen Urine NEGATIVE (NEGATIVE); Phencyclidine Screen Urine NEGATIVE (NEGATIVE); Tricyclic Antidepressant Urine NEGATIVE (NEGATIVE); Urine Microscopic Indicated NO
[2023-11-07 19:58] LABS: Buprenorphine Screen Urine NEGATIVE (NEGATIVE); Oxycodone Screen Urine NEGATIVE (NEGATIVE)
[2023-11-09 14:09] LABS: Lyme Total Antibody CIA Negative (Negative)
== END 2023-11-07 20:52 | disposition home or self-care (01) ==
PROVIDERS: Personal Emergency Response Attendant; Emergency Provider Emergency Medicine; PCP Nurse Practitioner Family
DX: R07.9 Chest pain, unspecified (principal); R06.02 Shortness of breath; R53.83 Other fatigue; F12.90 Cannabis use, unspecified, uncomplicated; F17.220 Nicotine dependence, chewing tobacco, uncomplicated; Z79.899 Other long term (current) drug therapy; Z20.822 Contact with and (suspected) exposure to COVID-19
CPT/HCPCS: 36415; 71046; 80048; 80307; 81003; 82550; 82553; 83874; 84484; 85025; 85378; 86618; 87804; 87811; 93005; 99285

== ENCOUNTER 2023-11-12 13:23 | Outpatient (OUT) | payer BC, SELFPAY ==
--- OUTSIDE RECORDS SUMMARY | 2023-11-12 13:47 | XMS_ITS | CCD ---
Author Name Unknown Address [address] [place] [address] [facility] Care Team Providers Care Radiological Health Specialist Name Role Phone TAMEKA JC Attending Unavailable KARASIK ., DR DILLARD Consulting Unavailabl e KARASIK ., DR DILLARD Attending Unavailabl e KARASIK ., DR DILLARD Admitting Unavailabl e NILESH, RICARDA Primary Care Unavailable KARASIK ., DR DILLARD Attending Unavailabl e NILESH, RICARDA Primary Care Unavailable KARASIK ., DR DILLARD Admitting Unavailabl e NILESH, RICARDA Primary Care Unavailable KARASIK ., DR DILLARD Attending Unavailabl e KARASIK ., DR DILLARD Admitting Unavailabl e KARASIK ., DR DILLARD Consulting Unavailabl e KARASIK ., DR DILLARD Attending Unavailabl e NILESH, RICARDA Primary Care Unavailable KARASIK ., DR DILLARD Admitting Unavailabl e AGUBOSIM, OLIVIA Consulting Unavailable LUCRECIA GREENBERG Consulting Unavailable KARASIK ., DR DILLARD Consulting Unavailabl e NILESH, RICARDA Primary Care Unavailable KARASIK ., DR DILLARD Attending Unavailabl e KARASIK ., DR DILLARD Admitting Unavailabl e LEANN SANCHEZ Consulting Unavailable NILESH, RICARDA Attending Unavailable NILESH, RICARDA Admitting Unavailable NILESH, RICARDA Primary Care Unavailable KARASIK ., DR DILLARD Attending Unavailabl e LEVINE ., DR HUTCHISON Consulting Unavailable KARASIK ., DR DILLARD Admitting Unavailabl e NILESH, RICARDA Primary Care Unavailable KARASIK ., DR DILLARD Consulting Unavailabl e AGUBOSIM, OLIVIA Consulting Unavailable VAISHNAVI ENGLISH Consulting Unavailable LEVINE ., DR HUTCHISON Procedure Practitioner Unav ailable KARASIK ., DR DILLARD Procedure Practitioner Jenna vailable NILESH, RICARDA Primary Care Unavailable NILESH, RICARDA Consulting Unavailable NILESH, RICARDA Attending Unavailable RICARDA GALLOWAY Admitting Unavailable RICARDA GALLOWAY Consulting Unavailable RICARDA GALLOWAY Attending Unavailable RICARDA GALLOWAY Admitting Unavailable RICARDA GALLOWAY Primary Care Unavailable RICARDA GALLOWAY Primary Care Unavailable HUMBERTO, DR MITCH Negron Attending Unavailabl e HUMBERTO, DR MITCH Negron Admitting Unavailabl e REINECK, DR MITCH Negron Consulting Unavailabl e KARASIK ., DR DILLARD Consulting Unavailabl e KARASIK ., DR DILLARD Admitting Unavailabl e KARASIK ., DR DILLARD Attending Unavailsandrine e NILESH, RICARDA Primary Care Unavailable KARASIK ., DR DILLARD Consulting Unavailabl e KARASIK ., DR DILLARD Attending Unavailsandrine GALLOWAY, [facility] Primary Care Unavailable KARAYAD ., DR DILLARD Admitting UnavailRADHA Macdonald Attending Unavailable DO Tano Huffman Emergency Provider DALTON Galloway Primary Care Provider 1( [phone] Ricarda Galloway Primary Care Unavailable Tano Huffman Attending Unavailable Tano Huffman Admitting Unavailable Medications Current Medications Medication Drug Class(es) Dates Sig (Normalized) Sig (Original) lamoTRIgine 200 mg oral tablet (3 sources) Mood Stabilizer, Anti-epileptic Agent Start: 03-29-2021 take 200 mg by mouth twice daily Lamotrigine Active 200 MG PO Twice daily 0 March 29, 2021 9:32am Start: 03-26-2021 End: 03-29-2021 take 200 mg by mouth once daily Lamotrigine Discontinu ed 200 MG PO Daily March 25, 2021 11:00pm March 29, 2021 9:32am Start: 11-11-2017 End: 03-26-2021 take 1 tablet by mouth once daily Lamotrigine (Lamictal) 150 mg Tablet Discontinued 150 MG PO Daily November 11, 2017 12:00am March 26, 2021 8:57am lurasidone hydrochloride 40 mg oral tablet (1 source) Atypical Antipsychotic Start: 03-29-2021 Lurasidone Active 40 MG PO Daily March 28, 2021 11:00pm must administer with food (at least 350 calories) Methylprednisolone (1 source) Corticosteroid Start: 11-10-2023 Methylprednisolone Active 0 PO .COMPLEX November 10, 2023 12:00am orally per package directions nicotine 2 mg chewing gum (1 source) Cholinergic Nicotinic Agonist Start: 03-29-2021 Nicotine (Polacrilex) Active 2 MG BUCCAL Every 2 hours 40 March 28, 2021 11:00pm prazosin 1 mg oral capsule (2 sources) alpha-Adrenergic Sin Start: 03-26-2021 take 2 mg by mouth once daily Prazosin Active 2 MG PO DAILY@2100 March 25, 2021 11:00pm Start: 03-26-2021 take 1 mg by mouth once daily Prazosin Active 1 MG PO DAILY@1300 March 25, 2021 11:00pm TAKE IN AFTERNOON Completed/Discontinued Medications Medication Drug Class(es) Dates Sig (Normalized) Sig (Original) brexpiprazole 0.5 mg oral tablet (1 source) Atypical Antipsychotic Start: 09-27-2018 End: 03-26-2021 take 1 tablet by mouth once daily Brexpiprazole (Rexulti) 0.5 mg Tablet Discontinued 0.5 MG PO Daily September 27, 2018 12:00am March 26, 2021 8:57am nitrofurantoin, macrocrystals 25 mg / nitrofurantoin, monohydrate 75 mg oral capsule (1 source) Nitrofuran Antibacterial Start: 09-27-2018 End: 03-26-2021 take 1 capsule by mouth every twelve hours at mealtime Nitrofurantoin Monohyd/M-Cryst (Macrobid) 100 mg Capsule Discontinued 100 MG PO Q12H 14 September 27, 2018 12:00am March 26, 2021 8:03am administer with a meal/food; swallow whole; do not open, crush, dissolve , or chew 24 hr venlafaxine 37.5 mg extended release oral capsule (1 source) Serotonin and Norepinephrine Reuptake Inhibitor Start: 03-26-2021 End: 03-26-2021 take 37.5 mg by mouth once daily Venlafaxine Discontinued 37.5 MG PO Daily March 25, 2021 11:00pm March 26, 2021 5:41pm Problems Active Problems Problem Classification Problem Date Documented Date Episodic/Chronic Anxiety disorders (1 source) Posttraumatic stress disorder; Translations: [Post-traumatic stress disorder, unspecified] 03-28-2021 Chronic Endometriosis (2 sources) Endometriosis, unspecified; Translations: [Endometriosis of pelvic peritoneum] Onset: 04-27-2022 Chronic External cause codes: Natural/environment (1 source) Bitten by dog, initial encounter; Translations: [Bitten by dog, initial encounter] Onset: 10-12-2018 Inflammatory diseases of female pelvic organs (4 sources) Chronic parametritis and pelvic cellulitis; Translations: [CHRON PARAMETRITIS PELV CELLULITIS] Onset: 05-15-2022 Chronic Lymphadenitis (1 source) Lymphadenopathy; Translations: [Generalized enlarged lymph nodes] 11-10-2023 Episodic Menstrual disorders (1 source) Excessive and frequent menstruation with regular cycle; Translations: [EXCESS FREQ MENSTRUATION W/REG CYCL] Onset: 05-25-2022 Chronic Mood disorders (2 sources) Bipolar disorder, unspecified; Translations: [Bipolar disorder] Onset: 05-25-2022 03-27-2021 Chronic Nausea and vomiting (1 source) Nausea; Translations: [Nausea] Onset: 01-07-2018 Episodic Nonspecific chest pain (1 source) Atypical chest pain; Translations: [Other chest pain] 11-10-2023 Episodic Other diseases of veins and lymphatics (1 source) Lymphangitis; Translations: [LYMPHANGITIS] Onset: 03-27-2022 Chronic Other female genital disorders (1 source) Abnormal uterine and vaginal bleeding, unspecified; Translations: [ABNORMAL UTERINE VAGINAL BLEED UNS] Onset: 04-27-2022 Chronic Residual codes; unclassified (1 source) At risk of elopement from healthcare setting; Translations: [Other specified personal risk factors, not elsewhere classified] 02-02-2018 Episodic Unclassified (1 source) CONTACT W/AND (SUSP) EXPOS [...] Test Name Value Interpretation Reference Range Facility XR chest 1V portableon 11-10 XR chest 1V portable [facility] Main [place] [id number] XRay Report Signed Patient: Laurence Guerra MR#: [id number] : 1985 Acct:[id number] Age/Sex: 38 / F ADM Date: 11/09/23 Loc: ER Room: Type: [facility] ER Attending Dr: Copies to: Tano Huffman DO Ordering Provider: Tano Huffman DO Date of Service: 11/09/23 XR/XR chest 1V portable: Chest Pain SINGLE VIEW CHEST CLINICAL HISTORY: Right-sided chest pain radiating into neck and back with shortness of breath and fatigue. COMPARISON: None FINDINGS: Heart normal in size. Mild interstitial changes. No consolidation pneumothorax pleural effusion or free air. Evidence old granulomatous disease. XR/XR chest 1V portable IMPRESSION: NO ACUTE FINDINGS Impression dictated by: Arie Ty Jr., Mila11/10/2023 10:04 AM Dictation Location: [place] [address] Transcribed By: [facility] 11/10/23 1004 Dictated By: Arie Ty Jr, DO 11/10/23 1003 Signed By: 11/10/23 1004 Normal [facility] Basic Metabolic Panelon 10-28 Anion gap [Moles/Vol] 10.8 mmol/L Normal 6.0-15.0 [facility] Comment on above: Performed By: #### B MP, CBC, HS TROP, DDIMER, MONOTEST #### [facility] [address] Calcium [Mass/Vol] 9.5 mg/dL Normal 8.6-10.3 [facility] Comment on above: Performed By: #### B MP, CBC, HS TROP, DDIMER, MONOTEST #### [facility] [address] [place] [address] [place] Chloride [Moles/Vol] 103 mmol/L Normal 98-107 [facility] Comment on above: Performed By: #### B MP, CBC, HS TROP, DDIMER, MONOTEST #### [facility] [address] [place] [address] [place] CO2 [Moles/Vol] 27.0 mmol/L Normal 21.0-31.0 [facility] Comment on above: Performed By: #### B MP, CBC, HS TROP, DDIMER, MONOTEST #### [facility] [address] [place] [address] [place] Creatinine [Mass/Vol] 0.69 mg/dL Normal 0.60-1.20 [facility] Comment on above: Performed By: #### B MP, CBC, HS TROP, DDIMER, MONOTEST #### [facility] [address] [place] [address] [place] Creatinine Clr Calc Pharmacy 126.33 Normal [facility] Comment on above: Result Comment: PERF ORMED BY: [place] [address] PATHOLOGIST PLASTIC MOLDING OPERATOR JULIA GUARDADO M.D. Performed By: #### B MP, CBC, HS TROP, DDIMER, MONOTEST #### [address] GFR/1.73 sq M.predicted MDRD (S/P/Bld) [Vol rate/Area] mL/min/{1.73_m2} [facility] Comment on above: Performed By: #### B MP, CBC, HS TROP, DDIMER, MONOTEST #### [address] Glucose [Mass/Vol] 98 mg/dL Normal 70-100 [facility] Comment on above: Result Comment: [facility] Glucose Reference Range is dependent on time and content of last meal. Glucose of more than 200 mg/dL in a nonstressed, ambulatory subject supports the diagnosis of Diabetes Mellitus. ADA recommended reference range Performed By: #### B MP, CBC, HS TROP, DDIMER, MONOTEST #### [address] Potassium [Moles/Vol] 3.8 mmol/L Normal 3.5-5.1 [facility] Comment on above: Performed By: #### B MP, CBC, HS TROP, DDIMER, MONOTEST #### [place] [address] [place] Sodium [Moles/Vol] 137 mmol/L Normal 136-145 [facility] Comment on above: Performed By: #### B MP, CBC, HS TROP, DDIMER, MONOTEST #### [place] [address] [place] Urea nitrogen [Mass/Vol] 13 mg/dL Normal 7-25 [facility] Comment on above: Performed By: #### B MP, CBC, HS TROP, DDIMER, MONOTEST #### [place] [address] [place] Basophils Auto (Bld) [#/Vol] Ordered By: Tano Huffman on 11-09-2023 Basophils (Bld) [#/Vol] 0.0 10*3/uL 0.0-0.2 [facility] Basophils/100 WBC Auto (Bld) Ordered By: Tano Huffman on 11-09-2023 Basophils/100 WBC (Bld) 0.6 % . F [facility] Calcium [Mass/volume] in Ser um or PlasmaOrdered By: Tano Huffman on 11-09-2023 Calcium [Mass/Vol] 9.5 mg/dL 8.6-10.3 [facility] Carbon dioxide, total [Moles /volume] in Serum or PlasmaOrdered By: Tano Huffman on 11-09-2023 CO2 [Moles/Vol] 27.0 mmol/L 21.0-31.0 [facility] Chloride [Moles/volume] in S marielena or PlasmaOrdered By: Tano Huffman on 11-09-2023 Chloride [Moles/Vol] 103 mmol/L 98-107 [facility] Complete Blood Count Auto Di ffon 11-09-2023 Basophils (Bld) [#/Vol] 0.0 10*3/uL Normal 0.0-0.2 [facility] Comment on above: Result Comment: PERF ORMED BY: [place] [address] PATHOLOGIST PLASTIC MOLDING OPERATOR JULIA GUARDADO M.D. Performed By: #### B MP, CBC, HS TROP, DDIMER, MONOTEST #### [facility] [address] Basophils/100 WBC (Bld) 0.6 % Normal . F [facility] Comment on above: Performed By: #### B MP, CBC, HS TROP, DDIMER, MONOTEST #### [facility] [address] Eosinophils (Bld) [#/Vol] 0.1 10*3/uL Normal 0.0-0.45 [facility] Comment on above: Performed By: #### B MP, CBC, HS TROP, DDIMER, MONOTEST #### [address] Eosinophils/100 WBC (Bld) 0.9 % Normal . [facility] Comment on above: Performed By: #### B MP, CBC, HS TROP, DDIMER, MONOTEST #### [address] Erythrocyte distribution width (RBC) [Ratio] 15.1 % Normal 11.9-15.3 [facility] Comment on above: Performed By: #### B MP, CBC, HS TROP, DDIMER, MONOTEST #### [address] Hematocrit (Bld) [Volume fraction] 39.0 % Normal 34.0-46.4 [facility] Comment on above: Performed By: #### B MP, CBC, HS TROP, DDIMER, MONOTEST #### [address] Hemoglobin (Bld) [Mass/Vol] 13.5 g/dL Normal 11.8-15.4 [facility] Comment on above: Performed By: #### B MP, CBC, HS TROP, DDIMER, MONOTEST #### [address] Lymphocytes (Bld) [#/Vol] 2.2 10*3/uL Normal 1.00-4.8 [facility] Comment on above: Performed By: #### B MP, CBC, HS TROP, DDIMER, MONOTEST #### [address] Lymphocytes/100 WBC (Bld) 29.2 % Normal . [facility] Comment on above: Performed By: #### B MP, CBC, HS TROP, DDIMER, MONOTEST #### [address] MCH (RBC) [Entitic mass] 28.5 pg Normal 24.7-34.3 [facility] Comment on above: Performed By: #### B MP, CBC, HS TROP, DDIMER, MONOTEST #### [address] MCV (RBC) [Entitic vol] 82.6 fL Normal 80-100 [facility] Comment on above: Performed By: #### B MP, CBC, HS TROP, DDIMER, MONOTEST #### [address] Mean Corpuscular HGB Conc 34.5 g/dL Normal 32.0-35.0 [facility] Comment on above: Performed By: #### B MP, CBC, HS TROP, DDIMER, MONOTEST #### [address] Monocytes (Bld) [#/Vol] 0.8 10*3/uL Normal 0.0-0.8 [facility] Comment on above: Performed By: #### B MP, CBC, HS TROP, DDIMER, MONOTEST #### [address] Monocytes/100 WBC (Bld) 18.73 % Normal 0.00-20.00 [facility] Comment on above: Performed By: #### B MP, CBC, HS TROP, DDIMER, MONOTEST #### [address] Monocytes/100 WBC (Bld) 11.1 % Normal . [facility] Comment on above: Performed By: #### B MP, CBC, HS TROP, DDIMER, MONOTEST #### [address] Neutrophils (Bld) [#/Vol] 4.5 10*3/uL Normal 1.8-7.7 [facility] Comment on above: Performed By: #### B MP, CBC, HS TROP, DDIMER, MONOTEST #### [address] Neutrophils/100 WBC (Bld) 58.2 % Normal . [facility] Comment on above: Performed By: #### B MP, CBC, HS TROP, DDIMER, MONOTEST #### [address] NRBC% 0.1 /100{WBC} Normal 0-0.5 [facility] Comment on above: Performed By: #### B MP, CBC, HS TROP, DDIMER, MONOTEST #### [facility] [address] Platelet mean volume (Bld) [Entitic vol] 8.3 fL Normal 6.3-10.7 [facility] Comment on above: Performed By: #### B MP, CBC, HS TROP, DDIMER, MONOTEST #### [facility] [address] Platelets (Bld) [#/Vol] 310 10*3/uL Normal 150-450 [facility] Comment on above: Performed By: #### B MP, CBC, HS TROP, DDIMER, MONOTEST #### [address] RBC (Bld) [#/Vol] 4.72 10*6/uL Normal 3.60-5.00 [facility] Comment on above: Performed By: #### B MP, CBC, HS TROP, DDIMER, MONOTEST #### [facility] [address] [place] [address] WBC (Bld) [#/Vol] 7.7 10*3/uL Normal 3.8-11.6 [facility] Comment on above: Performed By: #### B MP, CBC, HS TROP, DDIMER, MONOTEST #### [address] Creatinine [Mass/volume] in Serum or PlasmaOrdered By: Tano Huffman on 11-09-2023 Creatinine [Mass/Vol] 0.69 mg/dL 0.60-1.20 [facility] D-Dimer High Sensitivityon 0 11-09-2023 D-Dimer High Sensitivity < 200 Normal 0-243 [facility] Comment on above: Result Comment: The reference range for D-dimer is <243 ng/mL D-dimer units. D-dimer results must be used in conjunction with a clinical pretest probability (PTP) assessment model for deep vein thrombosis (DVT) and pulmonary embolism (PE). Results <230 ng/mL d-dimer units can be used as a negative predictor in patients with low or moderate probability for DVT/PE. Results above the exclusion threshold of 230 ng/ml D-dimer units for DVT/PE may indicate the need for further diagnostic testing. D-Dimer can be increased in hospitalized patients due to co-morbid conditions. A hematocrit value greater than 55% may lead to inaccurate results in coagulation testing. Patients having hematocrit values >55% require a special collection tube for coagulation studies. Please contact the laboratory at [phone] for redraw instructions. PERFORMED BY: [place] [address] PATHOLOGIST PLASTIC MOLDING OPERATOR JULIA GUARDADO M.D. Performed By: #### B MP, CBC, HS TROP, DDIMER, MONOTEST #### [address] ECG 12 lead ECGon 11-09-2023 ECG 12 lead ECG [facility] Main [place] [address] [place] [address] Electrocardiograph Report Signed Patient: Laurence Guerra MR#: [id number] : 1985 Acct:[id number] Age/Sex: 38 / F ADM Date: 11/09/23 Loc: ER Room: Type: [facility] ER Attending Dr: Ordering Provider: Tano Huffman DO Date of Service: 11/09/23 ECG/ECG 12 lead ECG: Chest Pain Copies to: Test Reason : Blood Pressure : / mmHG Vent. Rate : 068 BPM Atrial Rate : 068 BPM P-R Int : 106 ms QRS Dur : 080 ms QT Int : 376 ms P-R-T Axes : 075 078 045 degrees QTc Int : 399 ms Sinus rhythm with sinus arrhythmia with short CA Nonspecific ST abnormality Abnormal ECG No previous ECGs available Confirmed by TANO HUFFMAN DO ([id number]) on 11/10/2023 1:39:03 AM Referred By: Electronically Signed By:TANO HUFFMAN DO Transcribed By: [facility] Signed By Tano Huffman DO 11/10 0139 Normal [facility] Eosinophils Auto (Bld) [#/Vo l]Ordered By: Tano Huffman on 11-09-2023 Eosinophils (Bld) [#/Vol] 0.1 10*3/uL 0.0-0.45 [facility] Eosinophils/100 WBC Auto (Bl d)Ordered By: Tano Huffman on 11-09-2023 Eosinophils/100 WBC (Bld) 0.9 % . [facility] Erythrocyte distribution wid th Auto (RBC) [Ratio]Ordered By: Tano Huffman on 11-09-2023 Erythrocyte distribution width (RBC) [Ratio] 15.1 % 11.9-15.3 [facility] Fibrin D-dimer [Presence] in Platelet poor plasma by Latex agglutinationOrdered By: Tano Huffman on 11-09-2023 Fibrin D-dimer LA Ql (PPP) < 200 ng/mL 0-243 [facility] Comment on above: The reference range for D-dimer is <243 ng/mL D-dimer units.D-dimer results must be used in conjunction with a clinicalpretest probability (PTP) assessment model for deep veinthrombosis (DVT) and pulmonary embolism (PE). Results <230ng/mL d-dimer units can be used as a negative predictor inpatients with low or moderate probability for DVT/PE.Results above the exclusion threshold of 230 ng/ml D-dimerunits for DVT/PE may indicate the need for furtherdiagnostic testing.D-Dimer can be increased in hospitalized patients due toco-morbid conditions.A hematocrit value greater than 55% may lead to inaccurate results in coagulation testing. Patients having hematocrit values >55% require a special collection tube for coagulation studies. Please contact the laboratory at [phone] for redraw instructions. Glucose [Mass/volume] in Ser um or PlasmaOrdered By: Tano Huffman on 11-09-2023 Glucose [Mass/Vol] 98 mg/dL 70-100 [facility] Comment on above: ADA recommended refe rence rangeRandom Glucose Reference Range is dependent on time and content of last meal. Glucose of more than 200 mg/dL in a nonstressed, ambulatory subject supports the diagnosis of Diabetes Mellitus. Hematocrit Auto (Bld) [Volum e fraction]Ordered By: Tano Huffman on 11-09-2023 Hematocrit (Bld) [Volume fraction] 39.0 % 34.0-46.4 [facility] Hemoglobin [Mass/volume] in BloodOrdered By: Tano Huffman on 11-09-2023 Hemoglobin (Bld) [Mass/Vol] 13.5 g/dL 11.8-15.4 [facility] Leukocytes [#/volume] correc fausto for nucleated erythrocytes in Blood by Automated counOrdered By: Tano Huffman on 11-09-2023 WBC corrected for nucl RBC Auto (Bld) [#/Vol] 7.7 10*3/uL 3.8-11.6 [facility] Lymphocytes Auto (Bld) [#/Vo l]Ordered By: Tano Huffman on 11-09-2023 Lymphocytes (Bld) [#/Vol] 2.2 10*3/uL 1.00-4.8 [facility] Lymphocytes/100 WBC Auto (Bl d)Ordered By: Tano Huffman on 11-09-2023 Lymphocytes/100 WBC (Bld) 29.2 % . [facility] MCH Auto (RBC) [Entitic mass ]Ordered By: Tano Huffman on 11-09-2023 MCH (RBC) [Entitic mass] 28.5 pg 24.7-34.3 [facility] MCHC Auto (RBC) [Mass/Vol]Or dered By: Tano Huffman on 11-09-2023 MCHC (RBC) [Mass/Vol] 34.5 g/dL 32.0-35.0 [facility] MCV Auto (RBC) [Entitic vol] Ordered By: Tano Huffman on 11-09-2023 MCV (RBC) [Entitic vol] 82.6 fL 80-100 [facility] Monocyte distribution width [Entitic volume] in Blood by AutomatedOrdered By: aTno Huffman on 11-09-2023 Monocyte distribution width Auto (Bld) [Entitic vol] 18.73 % 0.00-20.00 [facility] Monocytes Auto (Bld) [#/Vol] Ordered By: Tano Huffman on 11-09-2023 Monocytes (Bld) [#/Vol] 0.8 10*3/uL 0.0-0.8 [facility] Monocytes/100 WBC Auto (Bld) Ordered By: Tano Huffman on 11-09-2023 Monocytes/100 WBC (Bld) 11.1 % . [facility] Monoteston 11-09-2023 Monotest Negative Normal Negative [facility] Comment on above: Result Comment: PERF ORMED BY: [facility] [address] [place] [address] PATHOLOGIST PLASTIC MOLDING OPERATOR JULIA GUARDADO M.D. Performed By: #### B MP, CBC, HS TROP, DDIMER, MONOTEST #### [facility] [address] Neutrophils Auto (Bld) [#/Vo l]Ordered By: Tano Huffman on 11-09-2023 Neutrophils (Bld) [#/Vol] 4.5 10*3/uL 1.8-7.7 [facility] Neutrophils/100 WBC Auto (Bl d)Ordered By: Tano Huffman on 11-09-2023 Neutrophils/100 WBC (Bld) 58.2 % . [facility] No Panel InformationOrdered By: Tano Huffman on 11-09-2023 Estimated GFR (CKD-EPI) > 60.0 mL/Min [facility] Creatinine Clearance (Chem 126.33 [facility] Nucleated erythrocytes [Pres ence] in Blood by Automated countOrdered By: Tano Huffman on 11-09-2023 Nucleated RBC Auto Ql (Bld) 0.1 /100{WBC} 0-0.5 [facility] Platelet mean volume Auto (B ld) [Entitic vol]Ordered By: Tano Huffman on 11-09-2023 Platelet mean volume (Bld) [Entitic vol] 8.3 fL 6.3-10.7 [facility] Platelets Auto (Bld) [#/Vol] Ordered By: Tano Huffman on 11-09-2023 Platelets (Bld) [#/Vol] 310 10*3/uL 150-450 [facility] Potassium [Moles/volume] in Serum or PlasmaOrdered By: Tano Huffman on 11-09-2023 Potassium [Moles/Vol] 3.8 mmol/L 3.5-5.1 [facility] RBC Auto (Bld) [#/Vol]Ordere d By: Tano Huffman on 11-09-2023 RBC (Bld) [#/Vol] 4.72 10*6/uL 3.60-5.00 [facility] Serum heterophile antibody d etection by latex agglutinationOrdered By: Tano Huffman on 11-09-2023 Heterophile Ab LA Ql (S) Negative Negative [facility] Serum or plasma anion gap de terminationOrdered By: Tano Huffman on 11-09-2023 Anion gap [Moles/Vol] 10.8 mmol/L 6.0-15.0 [facility] Sodium [Moles/volume] in Ser um or PlasmaOrdered By: Tano Huffman on 11-09-2023 Sodium [Moles/Vol] 137 mmol/L 136-145 [facility] Troponin I High Sensitivityo n 11-09-2023 Troponin I High Sensitivity < 2.3 Normal 0.0-15.0 [facility] Comment on above: Result Comment: PERF ORMED BY: [place] [address] PATHOLOGIST PLASTIC MOLDING OPERATOR JULIA GUARDADO M.D. Performed By: #### B MP, CBC, HS TROP, DDIMER, MONOTEST #### [address] Troponin I.cardiac [Mass/vol ume] in Serum or Plasma by Detection limit <= 0.01 ng/Ordered By: Tano Huffman on 11-09-2023 Troponin I.cardiac DL <= 0.01 ng/mL [Mass/Vol] < 2.3 pg/mL 0.0-15.0 [facility] Urea nitrogen [Mass/volume] in Serum or PlasmaOrdered By: Tano Huffman on 11-09-2023 Urea nitrogen [Mass/Vol] 13 mg/dL 7-25 [facility] WBC Auto (Bld) [#/Vol]Ordere d By: Tano Huffman on 11-09-2023 WBC (Bld) [#/Vol] 7.7 10*3/uL 3.8-11.6 [facility] Operative Reporton Operative Report [id number] [facility] CBC AUTO DIFFon 05-20-2022 BASO # 0.0 103/ul Normal 0.0-0.1 [facility] Comment on above: Performed By: #### C BC #### [facility] [address] [address] [address] Jose Daniel Duke Basophils/100 WBC (Bld) 0.5 % Normal 0.2-2.0 [facility] Comment on above: Performed By: #### C BC #### [facility] [address] [address] [address] Jose Daniel Duke EO # 0.2 103/ul Normal 0.0-0.7 [facility] Comment on above: Performed By: #### C BC #### [facility] [address] [place] [address] Dr. Jose Daniel Duke Eosinophils/100 WBC (Bld) 2.5 % Normal 0.9-7.0 [facility] Comment on above: Performed By: #### C BC #### [facility] [address] [place] [address] Dr. Jose Daniel Duke Erythrocyte distribution width (RBC) [Ratio] 15.7 % Critically high 11.0-15.0 [facility] Comment on above: Performed By: #### C BC #### [facility] [address] [place] [address] Dr. Jose Daniel Duke Hematocrit (Bld) [Volume fraction] 31.5 % Critically low 36.0-48.0 [facility] Comment on above: Performed By: #### C BC #### [facility] [address] [place] [address] Dr. Jose Daniel Duke Hemoglobin (Bld) [Mass/Vol] 10.0 g/dL Critically low 12.0-16.0 [facility] Comment on above: Performed By: #### C BC #### [facility] [address] [place] [address] Dr. Jose Daniel Duke IG # 0.01 10e3/ul Normal 0.00-0.03 [facility] Comment on above: Performed By: #### C BC #### [facility] [address] [place] [address] Dr. Jose Daniel Duke IG % 0.2 % Normal 0.0-0.5 [facility] Comment on above: Performed By: #### C BC #### [facility] [address] [place] [address] Dr. Jose Daniel Duke LYMPH # 2.2 103/ul Normal 1.2-3.8 [facility] Comment on above: Performed By: #### C BC #### [facility] [address] [place] [address] Dr. Jose Daniel Duke Lymphocytes/100 WBC (Bld) 34.4 % Normal 20.5-60.0 [facility] Comment on above: Performed By: #### C BC #### [facility] [address] [place] [address] Dr. Jose Daniel Duke MANUAL DIFF REQ NO Normal [facility] Comment on above: Performed By: #### C BC #### [facility] [address] [place] [address] Dr. Jose Daniel Duke MCH (RBC) [Entitic mass] 26.8 pg Normal 26.7-34.0 [facility] Comment on above: Performed By: #### C BC #### [facility] [address] [place] [address] Dr. Jose Daniel Duke MCHC (RBC) [Mass/Vol] 31.7 g/dL Normal 29.9-35.2 [facility] Comment on above: Performed By: #### C BC #### [facility] [address] [place] [address] Dr. Jose Daniel Duke MCV (RBC) [Entitic vol] 84.5 fL Normal 81.0-99.0 [facility] Comment on above: Performed By: #### C BC #### [facility] [address] [place] [address] Dr. Jose Daniel Duke MONO # 0.9 103/ul Critically high 0.3-0.8 [facility] Comment on above: Performed By: #### C BC #### [facility] [address] [place] [address] Dr. Jose Daniel Duke Monocytes/100 WBC (Bld) 14.7 % Critically high 1.7-12. 0 [facility] Comment on above: Performed By: #### C BC #### [facility] [address] [place] [address] Dr. Jose Daniel Duke NEUT # 3.0 103/ul Normal 1.4-6.5 [facility] Comment on above: Performed By: #### C BC #### [facility] [address] [place] [address] Dr. Jose Daniel Duke Neutrophils/100 WBC (Bld) 47.7 % Normal 43.0-75.0 [facility] Comment on above: Performed By: #### C BC #### [facility] [address] [place] [address] Dr. Jose Daniel Duke Platelet mean volume (Bld) [Entitic vol] 9.7 fL Normal 9.5-13.5 [facility] Comment on above: Performed By: #### C BC #### [facility] [address] [place] [address] Dr. Jose Daniel Duke PLT 251 103/ul Normal 150-450 [facility] Comment on above: Performed By: #### C BC #### [facility] [address] [place] [address] Dr. Jose Daniel Duke RBC 3.73 106/ul Critically low 4.20-5.40 [facility] Comment on above: Performed By: #### C BC #### [facility] [address] [place] [address] Dr. Jose Daniel Duke WBC 6.3 103/ul Normal 4.0-11.0 [facility] Comment on above: Performed By: #### C BC #### [facility] [address] [place] [address] Dr. Jose Daniel Crespo 05-19-2022 Urea nitrogen [Mass/Vol] 9.0 mg/dL Normal 7.0-18.0 [facility] Comment on above: Performed By: #### B LOUIS SURESH #### [facility] [address] [address] [address] Jose Daniel Duke CBC AUTO DIFFon 05-19-2022 BASO # 0.0 103/ul Normal 0.0-0.1 [facility] Comment on above: Performed By: #### C BC #### [facility] [address] [place] [address] Dr. Jose Daniel Duke Basophils/100 WBC (Bld) 0.4 % Normal 0.2-2.0 [facility] Comment on above: Performed By: #### C BC #### [facility] [address] [place] [address] Dr. Jose Daniel Duke EO # 0.0 103/ul Normal 0.0-0.7 [facility] Comment on above: Performed By: #### C BC #### [facility] [address] [place] [address] Dr. Jose Daniel Duke Eosinophils/100 WBC (Bld) 0.3 % Critically low 0.9-7.0 [facility] Comment on above: Performed By: #### C BC #### [facility] [address] [place] [address] Dr. Jose Daniel Duke Erythrocyte distribution width (RBC) [Ratio] 15.6 % Critically high 11.0-15.0 [facility] Comment on above: Performed By: #### C BC #### [facility] [address] [place] [address] Dr. Jose Daniel Duke Hematocrit (Bld) [Volume fraction] 32.5 % Critically low 36.0-48.0 [facility] Comment on above: Performed By: #### C BC #### [facility] [address] [place] [address] Dr. Jose Daniel Duke Hemoglobin (Bld) [Mass/Vol] 10.4 g/dL Critically low 12.0-16.0 [facility] Comment on above: Performed By: #### C BC #### [facility] [address] [place] [address] Dr. Jose Daniel Duke IG # 0.04 10e3/ul Critically high 0.00-0.03 [facility] Comment on above: Performed By: #### C BC #### [facility] [address] [place] [address] Dr. Jose Daniel Duke IG % 0.4 % Normal 0.0-0.5 [facility] Comment on above: Performed By: #### C BC #### [facility] [address] [place] [address] Dr. Jose Daniel Duke LYMPH # 1.9 103/ul Normal 1.2-3.8 [facility] Comment on above: Performed By: #### C BC #### [facility] [address] [place] [address] Dr. Jose Daniel Duke Lymphocytes/100 WBC (Bld) 20.3 % Critically low 20.5-60.0 [facility] Comment on above: Performed By: #### C BC #### [facility] [address] [place] [address] Dr. Jose Daniel Duke MANUAL DIFF REQ NO Normal [facility] Comment on above: Performed By: #### C BC #### [facility] [address] [place] [address] Dr. Jose Daniel Duke MCH (RBC) [Entitic mass] 26.9 pg Normal 26.7-34.0 [facility] Comment on above: Performed By: #### C BC #### [facility] [address] [place] [address] Dr. Jose Daniel Duke MCHC (RBC) [Mass/Vol] 32.0 g/dL Normal 29.9-35.2 [facility] Comment on above: Performed By: #### C BC #### [facility] [address] [place] [address] Dr. Jose Daniel Duke MCV (RBC) [Entitic vol] 84.2 fL Normal 81.0-99.0 [facility] Comment on above: Performed By: #### C BC #### [facility] [address] [place] [address] Dr. Jose Daniel Duke MONO # 1.2 103/ul Critically high 0.3-0.8 [facility] Comment on above: Performed By: #### C BC #### [facility] [address] [place] [address] Dr. Jose Daniel Duke Monocytes/100 WBC (Bld) 12.6 % Critically high 1.7-12. 0 [facility] Comment on above: Performed By: #### C BC #### [facility] [address] [place] [address] Dr. Jose Daniel Duke NEUT # 6.2 103/ul Normal 1.4-6.5 [facility] Comment on above: Performed By: #### C BC #### [facility] [address] [place] [address] Dr. Jose Daniel Duke Neutrophils/100 WBC (Bld) 66.0 % Normal 43.0-75.0 [facility] Comment on above: Performed By: #### C BC #### [facility] [address] [place] [address] Dr. Jose Daniel Duke Platelet mean volume (Bld) [Entitic vol] 9.9 fL Normal 9.5-13.5 [facility] Comment on above: Performed By: #### C BC #### [facility] [address] [place] [address] Dr. Jose Daniel Duke PLT 259 103/ul Normal 150-450 [facility] Comment on above: Performed By: #### C BC #### [facility] [address] [place] [address] Dr. Jose Daniel Duke RBC 3.86 106/ul Critically low 4.20-5.40 [facility] Comment on above: Performed By: #### C BC #### [facility] [address] [place] [address] Dr. Jose Daniel Duke WBC 9.3 103/ul Normal 4.0-11.0 [facility] Comment on above: Performed By: #### C BC #### [facility] [address] [place] [address] Dr. Jose Daniel Duke CREATININEon 05-19-2022 Creatinine [Mass/Vol] 0.91 mg/dL Normal 0.55-1.02 [facility] Comment on above: Performed By: #### B DEMETRICE CREMelvina #### [facility] [address] [address] [address] Jose Daniel Duke EGFR-AF PAKISTANI >60 Normal >=60 [facility] Comment on above: Performed By: #### B UN, CREA #### [facility] [address] [address] [address] Jose Daniel Duke EGFR-NON AF PAKISTANI >60 Normal >=60 [facility] Comment on above: Performed By: #### B UN, CREA #### [facility] [address] [address] [address] Jose Daniel Duke URon 05-18-2022 , QUAL Negative Normal NEGATIVE [facility] Comment on above: Performed By: #### B UN, CREA #### [facility] [address] [place] [address] Dr. Jose Daniel Duke [facility] SARS-CoV-2 (COVID-19) RNA VON+probe Ql (Unsp spec) Not detected Normal NOT DETECTED [facility] Comment on above: Result Comment: This test is not yet approved or cleared by the [place] FDA. When there are no FDA-approved or cleared tests available, and other criteria are met, FDA can make tests available under an emergency access mechanism called an Emergency Use Authorization (EUA). The EUA for this test is supported by the Shot Peen Operator of Health and Human Service's (HHS's) declaration [...] Performed By: #### B UN, CREA #### [facility] [address] [place] [address] Dr. Jose Daniel Duke TYPE AND SCREENon 05-14-2022 TYPE AND SCREEN Negative Normal [facility] Comment on above: Performed By: #### B UN, CREA #### [facility] [address] [address] [address] Jose Daniel Duke Physician Referralon 022 Physician Referral [id number] [facility] URon 04-20-2022 , QUAL Negative Normal NEGATIVE [facility] Comment on above: Performed By: #### P REGU #### [facility] [address] [place] [address] Dr. Jose Daniel Duke T4 [facility]on 03-05-2022 T4 [Mass/Vol] 7.4 ug/dL Normal 4.5-12.0 [facility] Comment on above: Performed By: #### T 4LC #### [facility] [address] [place] [address] Dr. Jose Daniel Duke Covid-19 PCR ([facility])on SARS-CoV-2 (COVID-19) RNA VON+probe Ql (Unsp spec) Not detected Normal NOT DETECTED [facility] Comment on above: Result Comment: When diagnostic [...] for this test is supported by the Shot Peen Operator of Health and Human Service's declaration that [...] Performed By: #### B UN, CREA #### [facility] [address] [place] [address] Dr. Jose Daniel Duke INFLUENZA A AND B AGon 03-02 INFLUANEGH SEE BELOW Normal [facility] Comment on above: Result Comment: Nega tive for Flu A protein angiten. Infection due to Flu A cannot be ruled out. Flu A angiten in the sample may be below the detection limit of the test. Performed By: #### I NFLUAB #### [facility] [address] [place] [address] Dr. Jose Daniel Duke INFLUBNEGH SEE BELOW Normal [facility] Comment on above: Result Comment: Nega tive for Flu B protein antigen. Infection due to Flu B cannot be ruled out. Flu B antigen in the sample may be below the detection limit of the test. Performed By: #### I NFLUAB #### [facility] [address] [place] [address] Dr. Jose Daniel Duke INFLUENZA A AG Negative Normal NEGATIVE SEE COMMENT [facility] Comment on above: Performed By: #### I NFLUAB #### [facility] [address] [place] [address] Dr. Jose Daniel Duke INFLUENZA B AG Negative Normal NEGATIVE SEE COMMENT [facility] Comment on above: Performed By: #### I NFLUAB #### [facility] [address] [place] [address] Dr. Jose Daniel Duke INTERNAL CONTROLS Within Normal Limits Normal Wi thin Normal Limits [facility] Comment on above: Performed By: #### I NFLUAB #### [facility] [address] [place] [address] Dr. Jose Daniel Duke SYMPTOMATIC COVID-19 ANTIGEN on 03-02-2022 EUA Statement SEE BELOW Normal [facility] Comment on above: Result Comment: This [...] sooner. Performed By: #### C VDAGS #### [facility] [address] [place] [address] Dr. Jose Daniel Duke SARS-CoV-2 (COVID-19) RNA VON+probe Ql (Unsp spec) Negative Normal NEGATIVE [facility] Comment on above: Performed By: #### C VDAGS #### [facility] [address] [place] [address] Dr. Jose Daniel Duke INSULINon 02-26-2022 Insulin 6.8 uIU/mL Normal 2.6-24.9 [facility] Comment on above: Performed By: #### B UN, CREA #### [facility] [address] [place] [address] Dr. Jose Daniel Duke CBC AUTO DIFFon 02-25-2022 BASO # 0.1 103/ul Normal 0.0-0.1 [facility] Comment on above: Performed By: #### C BC #### [facility] [address] [place] [address] Dr. Jose Daniel Duke Basophils/100 WBC (Bld) 0.8 % Normal 0.2-2.0 [facility] Comment on above: Performed By: #### C BC #### [facility] [address] [place] [address] Dr. Jose Daniel Duke EO # 0.1 103/ul Normal 0.0-0.7 [facility] Comment on above: Performed By: #### C BC #### [facility] [address] [place] [address] Dr. Jose Daniel Duke Eosinophils/100 WBC (Bld) 1.3 % Normal 0.9-7.0 [facility] Comment on above: Performed By: #### C BC #### [facility] [address] [place] [address] Dr. Jose Daniel Duke Erythrocyte distribution width (RBC) [Ratio] 15.1 % Critically high 11.0-15.0 [facility] Comment on above: Performed By: #### C BC #### [facility] [address] [place] [address] Dr. Jose Daniel Duke Hematocrit (Bld) [Volume fraction] 39.5 % Normal 36.0-48.0 [facility] Comment on above: Performed By: #### C BC #### [facility] [address] [place] [address] Dr. Jose Daniel Duke Hemoglobin (Bld) [Mass/Vol] 12.7 g/dL Normal 12.0-16.0 [facility] Comment on above: Performed By: #### C BC #### [facility] [address] [place] [address] Dr. Jose Daniel Duke IG # 0.01 10e3/ul Normal 0.00-0.03 [facility] Comment on above: Performed By: #### C BC #### [facility] [address] [place] [address] Dr. Jose Daniel Duke IG % 0.2 % Normal 0.0-0.5 [facility] Comment on above: Performed By: #### C BC #### [facility] [address] [place] [address] Dr. Jose Daniel Duke LYMPH # 2.0 103/ul Normal 1.2-3.8 [facility] Comment on above: Performed By: #### C BC #### [facility] [address] [place] [address] Dr. Jose Daniel Duke Lymphocytes/100 WBC (Bld) 32.7 % Normal 20.5-60.0 [facility] Comment on above: Performed By: #### C BC #### [facility] [address] [place] [address] Dr. Jose Daniel Duke MANUAL DIFF REQ NO Normal [facility] Comment on above: Performed By: #### C BC #### [facility] [address] [place] [address] Dr. Jose Daniel Duke MCH (RBC) [Entitic mass] 27.2 pg Normal 26.7-34.0 [facility] Comment on above: Performed By: #### C BC #### [facility] [address] [address] [address] Jose Daniel Duke MCHC (RBC) [Mass/Vol] 32.2 g/dL Normal 29.9-35.2 [facility] Comment on above: Performed By: #### C BC #### [facility] [address] [address] [address] Jose Daniel Duke MCV (RBC) [Entitic vol] 84.6 fL Normal 81.0-99.0 [facility] Comment on above: Performed By: #### C BC #### [facility] [address] [address] [address] Jose Daniel Duke MONO # 0.8 103/ul Normal 0.3-0.8 [facility] Comment on above: Performed By: #### C BC #### [facility] [address] [place] [address] Dr. Jose Daniel Duke Monocytes/100 WBC (Bld) 12.9 % Critically high 1.7-12. 0 [facility] Comment on above: Performed By: #### C BC #### [facility] [address] [place] [address] Dr. Jose Daniel Duke NEUT # 3.2 103/ul Normal 1.4-6.5 [facility] Comment on above: Performed By: #### C BC #### [facility] [address] [place] [address] Dr. Jose Daniel Duke Neutrophils/100 WBC (Bld) 52.1 % Normal 43.0-75.0 [facility] Comment on above: Performed By: #### C BC #### [facility] [address] [address] [address] Jose Daniel Duke Platelet mean volume (Bld) [Entitic vol] 10.1 fL Normal 9.5-13.5 [facility] Comment on above: Performed By: #### C BC #### [facility] [address] [address] [address] Jose Daniel Duke PLT 314 103/ul Normal 150-450 [facility] Comment on above: Performed By: #### C BC #### [facility] [address] [place] [address] Dr. Jose Daniel Duke RBC 4.67 106/ul Normal 4.20-5.40 [facility] Comment on above: Performed By: #### C BC #### [facility] [address] [place] [address] Dr. Jose Daniel Duke WBC 6.1 103/ul Normal 4.0-11.0 [facility] Comment on above: Performed By: #### C BC #### [facility] [address] [place] [address] Dr. Jose Daniel Duke FREE THYROXINE INDEX T7on FTI 2.37 Normal 1.30-4.50 [facility] Comment on above: Performed By: #### B UN, CREA #### [facility] [address] [place] [address] Dr. Jose Daniel Duke T3U 32.0 % Normal 30.0-39.0 [facility] Comment on above: Performed By: #### B UN, CREA #### [facility] [address] [place] [address] Dr. Jose Daniel Duke T4 [Mass/Vol] 7.40 ug/dL Normal 4.80-13.90 [facility] Comment on above: Result Comment: T4 t esting performed by [facility] Performed By: #### B UN, CREA #### [facility] [address] [place] [address] Dr. Jose Daniel Duke GLYCOHEMOGLOBIN A1Con 2021 ADA RECOMMENDATION SEE BELOW Normal [facility] Comment on above: Result Comment: ADA RECOMMENDED LIMIT 4.0 - 6.0 ADA THERAPEUTIC TARGET < 7.0 ACTION SUGGESTED > 7.0 Performed By: #### A 1C #### [facility] [address] [place] [address] Dr. Jose Daniel Duke Glucose [Mass/Vol] 111 mg/dL Normal [facility] Comment on above: Performed By: #### A 1C #### [facility] [address] [place] [address] Dr. Jose Daniel Duke HbA1c (Bld) [Mass fraction] 5.5 % Normal 4.5-6.2 [facility] Comment on above: Performed By: #### A 1C #### [facility] [address] [place] [address] Dr. Jose Daniel Duke IRONon 02-25-2022 Iron [Mass/Vol] 77.0 ug/dL Normal 50.0-170.0 [facility] Comment on above: Performed By: #### B UN, CREA #### [facility] [address] [place] [address] Dr. Jose Daniel Duke LIPID PROFILEon 02-25-2022 CHOL-HDL RATIO NORM SEE BELOW Normal [facility] Comment on above: Result Comment: 3.3 - 4.4 LOW RISK 4.4 - 7.1 AVERAGE RISK 7.1 - 11.0 MODERATE RISK >11.0 HIGH RISK Performed By: #### B UN, CREA #### [facility] [address] [place] [address] Dr. Jose Daniel Duke Cholesterol [Mass/Vol] 163 mg/dL Normal <=200 [facility] Comment on above: Performed By: #### B UN, CREA #### [facility] [address] [place] [address] Dr. Jose Daniel Duke Cholesterol in HDL [Mass/Vol] 55 mg/dL Normal 40-60 [facility] Comment on above: Performed By: #### B UN, CREA #### [facility] [address] [address] [address] Jose Daniel Duke Cholesterol in LDL [Mass/Vol] 77.2 mg/dL Normal [facility] Comment on above: Performed By: #### B UN, CREA #### [facility] [address] [place] [address] Dr. Jose Daniel Duke Cholesterol.total/Janie sterol in HDL [Mass ratio] 3.0 {ratio} Normal [facility] Comment on above: Performed By: #### B UN, CREA #### [facility] [address] [place] [address] Dr. Jose Daniel Duke HDL NORMAL > or = 60 mg/dl - LO W CARDIOVASCULAR RISK <40 mg/dl - HIGH CARDIOVASCULAR RISK Normal [facility] Comment on above: Performed By: #### B UN, CREA #### [facility] [address] [place] [address] Dr. Jose Daniel Duke LDL CALC NORMAL SEE BELOW Normal [facility] Comment on above: Result Comment: <100 mg/dl OPTIMAL 100 - 129 mg/dl NEAR OR ABOVE OPTIMAL 130 - 159 mg/dl BORDERLINE HIGH 160 - 189 mg/dl HIGH >190 mg/dl VERY HIGH Performed By: #### B UN, CREA #### [facility] [address] [address] [address] Jose Daniel Duke Triglyceride [Mass/Vol] 154 mg/dL Critically high <=150 [facility] Comment on above: Performed By: #### B UN, CREA #### [facility] [address] [place] [address] Dr. Jose Daniel Duke VLDL CALC 30.8 mg/dL Normal [facility] Comment on above: Performed By: #### B UN, CREA #### [facility] [address] [place] [address] Dr. Jose Daniel Duke PROF 14(COMP METB)on 022 Albumin [Mass/Vol] 3.8 g/dL Normal 3.4-5.0 [facility] Comment on above: Performed By: #### B UN, CREA #### [facility] [address] [place] [address] Dr. Jose Daniel Duke Albumin/Globulin [Mass ratio] 1.0 {ratio} Normal [facility] Comment on above: Performed By: #### B UN, CREA #### [facility] [address] [place] [address] Dr. Jose Daniel Duke ALP [Catalytic activity/Vol] 60 U/L Normal 46-116 [facility] Comment on above: Performed By: #### B UN, CREA #### [facility] [address] [address] [address] Jose Daniel Duke ALT [Catalytic activity/Vol] 15 U/L Normal 14-59 [facility] Comment on above: Performed By: #### B UN, CREA #### [facility] [address] [address] [address] Jose Daniel Duke Anion gap [Moles/Vol] 14.5 mmol/L Normal [facility] Comment on above: Performed By: #### B UN, CREA #### [facility] [address] [address] [address] Jose Daniel Duke AST [Catalytic activity/Vol] 10 U/L Critically low 15-37 [facility] Comment on above: Performed By: #### B UN, CREA #### [facility] [address] [place] [address] Dr. Jose Daniel Duke Bilirubin [Mass/Vol] 0.2 mg/dL Normal 0.2-1.0 [facility] Comment on above: Performed By: #### B UN, CREA #### [facility] [address] [place] [address] Dr. Jose Daniel Duke Calcium [Mass/Vol] 8.8 mg/dL Normal 8.5-10.1 [facility] Comment on above: Performed By: #### B UN, CREA #### [facility] [address] [address] [address] Jose Daniel Duke Chloride [Moles/Vol] 102 mmol/L Normal 98-107 [facility] Comment on above: Performed By: #### B UN, CREA #### [facility] [address] [place] [address] Dr. Jose Daniel Duke CO2 [Moles/Vol] 24.8 mmol/L Normal 21.0-32.0 [facility] Comment on above: Performed By: #### B UN, CREA #### [facility] [address] [place] [address] Dr. Jose Daniel Duke Creatinine [Mass/Vol] 0.80 mg/dL Normal 0.55-1.02 [facility] Comment on above: Performed By: #### B UN, CREA #### [facility] [address] [place] [address] Dr. Jose Daniel Duke EGFR-AF PAKISTANI >60 Normal >=60 [facility] Comment on above: Performed By: #### B UN, CREA #### [facility] [address] [address] [address] Jose Daniel Duke EGFR-NON AF PAKISTANI >60 Normal >=60 [facility] Comment on above: Performed By: #### B UN, CREA #### [facility] [address] [address] [address] Jose Daniel Duke Globulin (S) [Mass/Vol] 3.7 g/dL Normal T [facility] Comment on above: Performed By: #### B UN, CREA #### [facility] [address] [address] [address] Jose Daniel Duke Glucose [Mass/Vol] 94 mg/dL Normal 74-106 [facility] Comment on above: Performed By: #### B UN, CREA #### [facility] [address] [address] [address] Jose Daniel Duke Potassium [Moles/Vol] 4.3 mmol/L Normal 3.5-5.1 [facility] Comment on above: Performed By: #### B UN, CREA #### [facility] [address] [address] [address] Jose Daniel Duke Protein [Mass/Vol] 7.5 g/dL Normal 6.4-8.2 [facility] Comment on above: Performed By: #### B UN, CREA #### [facility] [address] [address] [address] Jose Daniel Duke Sodium [Moles/Vol] 137 mmol/L Normal 136-145 [facility] Comment on above: Performed By: #### B UN, CREA #### [facility] [address] [address] [address] Jose Daniel Duke Urea nitrogen [Mass/Vol] 13.0 mg/dL Normal 7.0-18.0 [facility] Comment on above: Performed By: #### B UN, CREA #### [facility] [address] [address] [address] Jose Daniel Duke Urea nitrogen/Creatinine [Mass ratio] 16.2 mg/mg Normal [facility] Comment on above: Performed By: #### B UN, CREA #### [facility] [address] [address] [address] Jose Daniel Duke TSHon 02-25-2022 TSH 1.593 uIU/mL Normal 0.358-3.740 [facility] Comment on above: Performed By: #### B UN, CREA #### [facility] [address] [address] [address] Jose Daniel Duke TSH RANGE SEE BELOW Normal [facility] Comment on above: Result Comment: <0.3 4 UIU/ml HYPERTHYROID 0.34-5.60 UIU/ml EUTHYROID >5.60 UIU/ml HYPOTHYROID Performed By: #### B UN, CREA #### [facility] [address] [place] [address] Dr. Jose Daniel Duke ED NOTEon 10-12-2018 ED NOTE HNO ID: [id number] Author: Melva Alves) JOCELINE Garcia Service: Nursing Author Type: Registered Nurse Type: ED Notes Filed: 10/12/2018 11:29 AM Note Text: Patient given discharge prescriptions of Augmentin and follow up instructions. Patient verbalizes understanding of education. VSS, left stable and ambulatory. [facility] ED NOTE HNO ID: [id number] Author: Melva Alves) JOCELINE Garcia Service: Nursing Author Type: Registered Nurse Type: ED Notes Filed: 10/12/2018 11:13 AM Note Text: Steri strips applied to left finger [facility] ED NOTE HNO ID: [id number] Author: Melva Alves) JOCELINE Garcia Service: Nursing Author Type: Registered Nurse Type: ED Notes Filed: 10/12/2018 9:34 AM Note Text: Patient states was bit by a dog at work this morning around 0845. Dog was not UTD on shots. She had a tetanus shot and rabies vaccines 4 years ago while at work in [place]. Bleeding is controlled. [facility] ED PROV NOTEon 10-12-2018 Protein mass conc HNO ID: [id number] Author: Tameka Jc MD Service: Emergency Medicine Author Type: Physician Type: ED Provider Notes Filed: 10/12/2018 11:12 AM Note Text: ED Provider Note Patient Name: Laurence Guerra SERVICE DATE: 10/12/18 History Patient presents with: Dog Bite: bitten both index fingertips at work [employer] LUMMI: Patient present with complaint of dog bite to bilateral index fingers. Onset was 8:30 AM, with stable course since that time. 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 Basophil 0.05 k/uL Normal 0.00-0.[address] [facility] Comment on above: Performed By: #### C DP ####[address] [address] #### CP ####[address] [place] [address] Abs.Neutrophil (Seg) 5.75 k/uL Normal 1.50-8.10 [facility] Comment on above: Performed By: #### C DP ####[address] [address] [place] [address] #### CP ####[address] [place] [address] Basophils/100 WBC Auto (Bld) 1 % Normal 0-2 [facility] Comment on above: Performed By: #### C DP ####[address] [address] #### CP ####[address] [place] [address] Eosinophils 0.03 10*3/uL Normal 0.00-0.[address] [facility] Comment on above: Performed By: #### C DP ####[address] [address] #### CP ####[address] [place] [address] Eosinophils/100 leukocytes 0 % Low 1-4 [facility] Comment on above: Performed By: #### C DP ####[address] [address] #### CP ####[address] [place] [address] Erythrocyte distribution width Auto Ratio (RBC) 15.3 % High 11.8-14.4 [facility] Comment on above: Performed By: #### C DP ####[address] [address] #### CP ####[address] [place] [address] Erythrocytes (RBC) 4.72 10*6/uL Normal 3.95-5.11 [facility] Comment on above: Performed By: #### C DP ####[address] [address] #### CP ####[address] [place] [address] Erythrocytes (RBC) 0.0 per [address] [facility] Comment on above: Performed By: #### C DP ####[address] [address] #### CP ####[address] [place] [address] Granulocytes/100 WBC (Bld) 0.03 k/uL Normal 0.00-0.30 [facility] Comment on above: Result Comment: Perf ormed at [address] [address] Performed By: #### C DP ####[address] [address] #### CP ####[address] [place] [address] Hematocrit (HCT) 39.1 % Normal 36.3-47.1 [facility] Comment on above: Performed By: #### C DP ####[address] [address] #### CP ####[address] [place] [address] Hemoglobin mass conc (Bld) 12.6 g/dL Normal 11.9-15.1 [facility] Comment on above: Performed By: #### C DP ####[address] [address] #### CP ####[address] [place] [address] Immature granulocytes #/vol (Bld) 0 % Normal 0 [facility] Comment on above: Performed By: #### C DP ####[address] [address] #### CP ####[address] [place] [address] Lymphocytes 1.46 10*3/uL Normal 1.10-3.[address] [facility] Comment on above: Performed By: #### C DP ####[address] [address] #### CP ####[address] [place] [address] Lymphocytes/100 leukocytes 18 % Low 24-43 [facility] Comment on above: Performed By: #### C DP ####[address] [address] #### CP ####[address] [place] [id number] MCH 26.7 pg Normal 25.2-33.5 [facility] Comment on above: Performed By: #### C DP ####[address] [address] #### CP ####[address] [place] [id number] MCHC mass conc (RBC) 32.2 g/dL Normal 28.4-34.8 [facility] Comment on above: Performed By: #### C DP ####[address] [address] #### CP ####[address] [place] [address] MCV 82.8 fL Normal 82.6-102.9 [facility] Comment on above: Performed By: #### C DP ####[address] [address] #### CP ####[address] [place] [address] Monocytes 0.70 10*3/uL Normal 0.10-1.20 [facility] Comment on above: Performed By: #### C DP ####[address] [address] #### CP ####[address] [place] [address] Monocytes/100 leukocytes 9 % Normal 3-12 [facility] Comment on above: Performed By: #### C DP ####[address] [address] #### CP ####[address] [place] [address] Neutrophil (Seg) 72 % High 36-65 [facility] Comment on above: Performed By: #### C DP ####[address] [address] #### CP ####[address] [place] [address] Platelet mean volume (PMV) 9.9 fL Normal 8.1-13.5 [facility] Comment on above: Performed By: #### C DP ####[address] [address] #### CP ####[address] [place] [address] Platelets 330 10*3/uL Normal 138-453 [facility] Comment on above: Performed By: #### C DP ####[address] [address] #### CP ####[address] [place] [address] WBC (Leukocytes) 8.0 10*3/uL Normal 3.5-11.3 [facility] Comment on above: Performed By: #### C DP ####[address] [address] #### CP ####[address] [place] [address] Auto Diff Performed NOT REPORTED Normal [facility] Comment on above: Performed By: #### C DP ####[address] [address] #### CP ####[address] [place] [address] Erythrocyte morphology NOT REPORTED Normal [facility] Comment on above: Performed By: #### C DP ####[address] [place] [address] #### CP ####[address] [place] [address] Platelets NOT REPORTED Normal [facility] Comment on above: Performed By: #### C DP ####[facility] [address] [place] [address] #### CP ####[address] [place] [address] WBC Morphology NOT REPORTED Normal [facility] Comment on above: Performed By: #### C DP ####[address] [address] #### CP ####[address] [place] [address] CT ABDOMEN PELVIS WO CONTRAS Ton 01-07-2018 [...] abdomen or pelvisInterpreted by:ANGELICA Barrettigned by:Laurence Huitron MD01/07/18Final result Normal [facility] Comp Metabolic Profon 2017 (cont.) Normal [facility] Comment on above: Result Comment: Aver age GFR for 30-39 years old: 107 mL/min/1.73sq mChronic Kidney Disease: <60 mL/min/1.73sq mKidney failure: <15 mL/min/1.73sq meGFR calculated using average adult body mass. Additional eGFR calculator available at:http://www.[employer]/multiple_crcl_2011.htm Performed By: #### C DP ####[address] [address] #### CP ####[address] [place] [address] Alanine aminotransferase (ALT) 7 U/L Normal 5-33 [facility] Comment on above: Performed By: #### C DP ####[address] [address] #### CP ####[address] [place] [address] Albumin 4.6 g/dL Normal 3.5-5.2 [facility] Comment on above: Performed By: #### C DP ####[address] [address] #### CP ####[address] [place] [address] Albumin/Globulin Ratio 1.5 {ratio} Normal 1.0-2.5 M [facility] Comment on above: Performed By: #### C DP ####[address] [address] #### CP ####[address] [place] [address] Alkaline Phos 65 U/L Normal 35-[address] [facility] Comment on above: Performed By: #### C DP ####[address] [address] #### CP ####[address] [place] [address] Anion gap 13 mmol/L Normal 9-17 [facility] Comment on above: Performed By: #### C DP ####[address] [address] #### CP ####[address] [place] [address] Aspartate aminotransferase (AST) 14 U/L Normal <32 [facility] Comment on above: Performed By: #### C DP ####[address] [address] #### CP ####[address] [place] [address] Bilirubin Ql (U) 0.18 mg/dL Low 0.3-1.2 [facility] Comment on above: Performed By: #### C DP ####[address] [address] #### CP ####[address] [place] [address] BUN/CRE Ratio 13 Normal 9-[address] [facility] Comment on above: Performed By: #### C DP ####[address] [address] #### CP ####[address] [place] [address] Calcium 9.6 mg/dL Normal 8.6-10.4 [facility] Comment on above: Performed By: #### C DP ####[address] [address] #### CP ####[address] [place] [address] Chloride 100 mmol/L Normal 98-107 [facility] Comment on above: Performed By: #### C DP ####[address] [address] #### CP ####[address] [place] [address] CO2 24 mmol/L Normal 20-31 [facility] Comment on above: Performed By: #### C DP ####[address] [address] #### CP ####[address] [place] [address] Creatinine 0.63 mg/dL Normal 0.50-0.90 [facility] Comment on above: Performed By: #### C DP ####[address] [address] #### CP ####[address] [place] [address] eGFR (non-black) mL/min/{1.73_m2} Normal >60 [facility] Comment on above: Performed By: #### C DP ####[address] [address] #### CP ####[address] [place] [address] Glucose mass conc 98 mg/dL Normal 70-99 [facility] Comment on above: Performed By: #### C DP ####[address] [address] #### CP ####[address] [place] [address] Potassium molar conc 4.1 mmol/L Normal 3.7-5.3 [facility] Comment on above: Performed By: #### C DP ####[address] [address] #### CP ####[address] [place] [address] Protein 7.7 g/dL Normal 6.4-8.3 [facility] Comment on above: Performed By: #### C DP ####[address] [address] #### CP ####[address] [place] [address] Sodium 137 mmol/L Normal 135-144 [facility] Comment on above: Performed By: #### C DP ####[address] [address] #### CP ####[address] [place] [address] Staging: Normal [facility] Comment on above: Result Comment: Stag e 1: Some kidney damage normal GFRStage 2: Mild kidney damage GFR 60-89Stage 3: Moderate kidney damage GFR 30-59Stage 4: Severe kidney damage GFR 15-29Stage 5: Severe kidney damage GFR <15ESRD - chronic treatment by dialysis or transplantPerformed at [address] [place] [address] Performed By: #### C DP ####[address] [place] [address] #### CP ####[address] [place] [address] Urea nitrogen 8 mg/dL Normal 6-[address] [facility] Comment on above: Performed By: #### C DP ####[facility] [id number] [place] [address] #### CP ####[address] [place] [address] ED Provider Noteon 8 HIM IP Note OR Raw Shellfish Preparer Normal [facility] HCG, Quanton 01-07-2018 HCG, Quant <1 Normal <5 [facility] Comment on above: Result Comment: Non- preg premeno <=5Postmeno <=8Male <=3If HCG results do not concur with clinical observations, additional testing to confirm result is recommended. This test is not labeled for use as a tumor marker.Performed at [address] [place] [address] Performed By: #### B HCG ####[address] [place] [address] Urinalysis, Routineon 2017 Acetaminophen mass conc 1+ Abnormal NEG M [facility] Comment on above: Performed By: #### U A, UMICAO ####[address] [place] [address] Bilirubin (direct) Negative Normal NEG [facility] Comment on above: Performed By: #### U A, UMICAO ####[address] [place] [address] Hemoglobin mass conc (Bld) TRACE Abnormal NEG [facility] Comment on above: Performed By: #### U A, UMICAO ####[address] [place] [address] Nitrite,Ur Negative Normal NEG [facility] Comment on above: Performed By: #### U A, UMICAO ####[address] [place] [address] Turbidity CLEAR Normal CLEAR [facility] Comment on above: Performed By: #### U A, UMICAO ####[address] [place] [address] Urine, color YELLOW Normal YEL [facility] Comment on above: Performed By: #### U A, UMICAO ####[address] [place] [address] Urine, glucose presence Negative Normal NEG [facility] Comment on above: Performed By: #### U A, UMICAO ####[address] [place] [address] Urine, leukocyte esterase presence Negative Normal NEG [facility] Comment on above: Result Comment: Perf ormed at [address] [place] [address] Performed By: #### U A, UMICAO ####[address] [place] [address] Urine, pH 6.0 [pH] Normal 5.0-9.0 [facility] Comment on above: Performed By: #### U A, UMICAO ####[address] [place] [address] Urine, protein presence Negative Normal NEG [facility] Comment on above: Performed By: #### U A, UMICAO ####[address] [place] [address] Urine, specific gravity 1.025 High 1.010-1.020 [facility] Comment on above: Performed By: #### U A, UMICAO ####[address] [place] [address] Urobilinogen,Ur Normal Normal NORM [facility] Comment on above: Performed By: #### U A, UMICAO ####[address] [place] [address] Comment NOT REPORTED Normal [facility] Comment on above: Performed By: #### U A, UMICAO ####[address] [place] [address] Urinalysis,Microon 8 ----- Normal [facility] Comment on above: Performed By: #### U A, UMICAO ####[address] [place] [address] Urine WBC's 0 TO 2 Normal 0-5 [facility] Comment on above: Performed By: #### U A, UMICAO ####[address] [place] [address] Urine, epithelial cells in sediment 2 TO 5 Normal 0-25 [facility] Comment on above: Result Comment: Perf ormed at [facility] [address] [place] [address] Performed By: #### U A, UMICAO ####[address] [place] [address] Urine, erythrocytes None Normal 0-2 [facility] Comment on above: Performed By: #### U A, UMICAO ####[address] [place] [address] Epithelial, Renal NOT REPORTED Normal 0 [facility] Comment on above: Performed By: #### U A, UMICAO ####[address] [place] [address] Mucus Strands NOT REPORTED Normal NONE [facility] Comment on above: Performed By: #### U A, UMICAO ####[address] [place] [address] Other Observations NOT REPORTED Normal NREQ [facility] Comment on above: Performed By: #### U A, UMICAO ####[address] [place] [address] Trichomonas NOT REPORTED Normal NONE [facility] Comment on above: Performed By: #### U A, UMICAO ####[facility] [place] [address] Urine, amorphous sediment presence in sediment NOT REPORTED Normal NONE [facility] Comment on above: Performed By: #### U A, UMICAO ####[address] [place] [address] Urine, bacteria in sediment NOT REPORTED Normal NONE [facility] Comment on above: Performed By: #### U A, UMICAO ####[address] [place] [address] Urine, casts in sediment NOT REPORTED Normal [facility] Comment on above: Performed By: #### U A, UMICAO ####[address] [place] [address] Urine, crystals in sediment NOT REPORTED Normal NONE [facility] Comment on above: Performed By: #### U A, UMICAO ####[address] [place] [address] Urine, yeast presence in sediment NOT REPORTED Normal NONE [facility] Comment on above: Performed By: #### U A, UMICAO ####[address] [place] [address] Vital Signs Date Time Vital Sign Value Performing Clinician Pamela william 11-10-2023 01:33-0500 Diastolic blood pressure 65 mm[Hg] DO Tano Huffman Work Phone: [facility] 11-10-2023 01:33-0500 Heart rate 61 /min DO Tano Huffman Work Phone: [facility] 11-10-2023 01:33-0500 Respiratory rate 18 /min DO Tano Huffman Work Phone: [facility] 11-10-2023 01:33-0500 SaO2% (BldA) [Mass fraction] 99 % DO Tano Huffman Work Phone: [facility] 11-10-2023 01:33-0500 Systolic blood pressure 107 mm[Hg] DO Tano Huffman Work Phone: [facility] 11-09-2023 19:34-0500 Body height 172.72 cm DO Tano Huffman Work Phone: [facility] 11-09-2023 19:34-0500 Body temperature 98 [degF] DO Tano Huffman Work Phone: [facility] 11-09-2023 19:34-0500 Body weight 81.64 kg DO Tano Huffman Work Phone: [facility] Encounters Encounter Date Encounter Type Care Provider Facility Start: 11-09-2023 End: 11-10-2023 Emergency department patient visit Ricarda Davis Nilesh Facility:[facility] Start: 11-09-2023 End: 11-10-2023 Emergency department patient visit DO Tano Huffman Work Phone: [facility] Work Phone: Start: 10-20-2023 End: 10-20-2023 ambulatory RADHA SARAH Not Available Start: 05-18-2022 End: 05-20-2022 Evaluation and management of inpatient DR GILMA ISABEL . Facility:[facility] Start: 05-15-2022 Encounter for preprocedural laboratory examination DR GILMA ISABEL . [facility] Start: 05-14-2022 End: 05-15-[address] GILMA ISABEL . Facility:[facility] Start: 05-14-2022 End: 05-15-2022 Encounter for preprocedural laboratory examination DR GILMA ISABEL . Facility:[facility] Start: 05-13-[address] GILMA ISABEL . Fa cility:[facility] Start: 04-20-2022 End: 04-20-[address] GILMA ISABEL . Facility:[facility] Start: 04-15-2022 End: 04-16-[address] GILMA ISABEL . Facility:[facility] Start: 03-25-2022 End: 03-25-2022 ambulatory RICARDA GALLOWAY Facility:[facility] Start: 03-20-2022 ambulatory RICARDA GALLOWAY Facility: [facility] Start: 03-04-2022 Encounter for genera l adult medical examination without abnormal findings RICARDA GALLOWAY [facility] Start: 03-04-2022 Encounter for other preprocedural examination DR GILMA ISABEL . [facility] Start: 03-02-2022 End: 03-02-[address] GILMA ISABEL . Facility:[facility] Start: 02-26-2022 ambulatory RICARDA GALLOWAY Facility: [facility] Start: 02-25-2022 End: 02-26-2022 Encounter for general adult medical examination without abnormal findings RICARDA GALLOWAY Facility:[facility] Start: 02-25-2022 End: 02-26-2022 ambulatory RICARDA GALLOWAY Facility:[facility] Start: 02-25-2022 End: 02-26-2022 Encounter for other preprocedural examination DR GILMA ISABEL . Facility:[facility] Start: 10-12-2018 End: 10-12-2018 Emergency department patient visit [facility] Start: 01-07-2018 End: 01-07-2018 Emergency department patient visit [facility] Procedures Date Procedure Procedure Detail Performing [...] Start: 01-07-2018 Microscopic urinalysis Start: 01-07-2018 Urinalysis Plan of Treatment Date Care Activity Detail Author Start: 11-09-2023 Plain chest X-ray XR chest 1V portab le [facility] Start: 11-09-2023 XR Chest Single view [facility] Patient Education Lymphadenitis (DC) Chest Pain, Adult ED [facility] Work Phone: Patient referral [facility] Work Phone: Payers Date Payer Category Payer Unknown [id number] 2023 Unknown [id number] 2017 Unknown [id number] 1987 Unknown [id number] 1987 Unknown [id number] 2.16.840.1.097685.3.579.2.593 1987 Unknown [id number] 2.16.840.1.386981.3.579.2.593 1987 Unknown [id number] 2.16.840.1.728238.3.579.2.593 1987 Unknown [id number] 2.16.840.1.321384.3.579.2.593 1987 Unknown [id number] 2.16.840.1.138090.3.579.2.593 1987 Unknown [id number] 2.16.840.1.421111.3.579.2.593 1987 Unknown [id number] 2.16.840.1.278472.3.579.2.593 1987 Unknown [id number] 2.16.840.1.803573.3.579.2.593 1987 Unknown [id number] 2.16.840.1.953187.3.579.2.593 1987 Unknown [id number] 2.16.840.1.697745.3.579.2.593 1987 Unknown [id number] 2.16.840.1.122512.3.579.2.593 1987 Unknown [id number] 2.16.840.1.239540.3.579.2.1259 1959 Self-pay 1959 Unknown [id number] Medicaid [address] [id number] Unknown [id number] Unknown Cadott Ambetter AARON [id number] Unknown HCAP/HFA/FAP Active [id number] Unknown [id number] Social History Date Type Detail Facility Start: [facility]10[facility]2023 [facility] Start: 1985 Sex Assigned At Female F [facility] Evaluation note Note Date & Type Note Facility Evaluation note No assessment information availa [facility] Work Phone: Summary Purpose Family History No Family History Records FoundNo Family History Records FoundNo Family History Records FoundNo Family History Records FoundNo Family History Records FoundNo Family History Records Found Advance Directives No Advanced Directives Records Found Advance Directive Response Recorded Date/ Time Advance Directives No October 1:47am Chief Complaint and Reason for Visit Chief Complaint SOB/chest tightness Additional Source Comments INFORMATION SOURCE (unrecogn ized section and content) DATE CREATED AUTHOR 03/17/2018 [facility] DATE CREATED AUTHOR AUTHOR'S ORGANIZ ATION [facility]/17/[facility] DATE CREATED AUTHOR AUTHOR'S ORGANIZ ATION 05/27/2022 [facility] DATE CREATED AUTHOR AUTHOR'S ORGANIZ ATION 02/03/2023 [facility] DATE CREATED AUTHOR AUTHOR'S ORGANIZ ATION 10/21/2023 [facility] EPIC DATE CREATED AUTHOR AUTHOR'S ORGANIZ ATION 11/11/2023 [facility] Care Teams (unrecognized sec tion and content) Team Status: Active Member Role Status Dates DALTON Rosa Primary Care Provider Active Team Status: Inactive Member Role Status Dates Tano Huffman DO Emergency Provider Active Sta rt: November 09, 2023 End: November 10, 2023 Nay Olguin DO RES Active Star t: November 09, 2023 End: November 10, 2023 DALTON Rosa Primary Care Provider Active Start: November 09, 2023 End: November 10, 2023 Goals (unrecognized section and content) Goals may be documented in a n alternate section FOR RECORDS PERTAINING TO PATIENTS WHO ARE [...] BE BASED ON THE PRIMARY CLINICAL RECORDS. [employer] provides no warranty or guarantee of the accuracy or completeness of information in this document.
[2023-11-12 15:05] LABS: Free T3 2.18 pg/mL (2.18-3.98)
[2023-11-13 04:07] LABS: Sex Horm Binding Glob, Serum 74.1 nmol/L (24.6-122.0)
[2023-11-13 08:13] LABS: DHEA-Sulfate 41.5 ug/dL (57.3-279.2); Estradiol 14.7 pg/mL (.); Progesterone 0.2 ng/mL (.)
[2023-11-14 15:07] LABS: C-Peptide, Serum 2.8 ng/mL (1.1-4.4)
[2023-11-15 16:16] LABS: Thyroglobulin Antibody <1.0 IU/mL (0.0-0.9); Thyroid Peroxidase (TPO) Ab <9 IU/mL (0-34)
[2023-11-18 07:09] LABS: Serotonin, Serum 92 ng/mL (31-207)
[2023-11-18 09:09] LABS: Cortisol, Free Dialysis, LCMS 0.054 ug/dL (.)
[2023-11-18 19:07] LABS: Estrone, Serum 40 pg/mL (27-231)
[2023-11-20 22:06] LABS: Free Testosterone(Direct) <0.2 pg/mL (0.0-4.2); Testosterone <3 ng/dL (8-60)
[2023-11-21 02:07] LABS: Thyroglobulin (TG-RIA) 14 ng/mL (.)
== END 2023-11-12 13:24 | disposition home or self-care (01) ==
LOC: LAB 13:26
PROVIDERS: PCP Nurse Practitioner Family; Visit Provider Obstetrics & Gynecology
DX: E34.9 Endocrine disorder, unspecified (principal)
CPT/HCPCS: 36415; 82530; 82627; 82670; 82679; 84144; 84260; 84270; 84402; 84403; 84432; 84481; 84681; 86376; 86800

== ENCOUNTER 2023-12-22 20:59 | Emergency (ER) | payer BC, SELFPAY ==
[2023-12-22 21:04] VITALS: BP 123/83; PULSE 81; RESP 18; TEMP 36.5; O2SAT 99; BMI 27.4
--- OUTSIDE RECORDS SUMMARY | 2023-12-22 21:07 | XMS_ITS | CCD ---
Author Organization [facility] Care Team Providers Care Pharmacognosist Name Role Phone TAMEKA JC Attending Unavailable [...] KARASIK ., DR DILLARD Admitting Unavailabl e AGUBJOSEMANUEL, OLIVIA Consulting Unavailable LUCRECIA GREENBERG Consulting Unavailable [...] Consulting Unavailabl e AGUBOSIM, OLIVIA Consulting Unavailable VAISHANVI ENGLISH Consulting Unavailable LEVINE ., DR HUTCHISON Procedure Practitioner Unav ailable KARASIK ., DR DILLARD Procedure Practitioner Jenna vailable NILESH, RICARDA Primary Care Unavailable NILESH, RICARDA Consulting Unavailable NILESH, RICARDA Attending Unavailable NILESH, RICARDA Admitting Unavailable NILESH, RICARDA Consulting Unavailable RICARDA GALLOWAY Attending Unavailable NILESH, RICARDA Admitting Unavailable NILESH, RICARDA Primary Care Unavailable NILESH, RICARDA Primary Care Unavailable HUMBERTO, DR MITCH Negron Attending Unavailabl fabrizio PAUL, DR MITCH Negron Admitting Unavailabl e HUMBERTO, DR MITCH Negron Consulting Unavailabl e KARASIK ., DR DILLARD Consulting Unavailabl e KARASIK ., DR DILLARD Admitting Unavailabl e KARASIK ., DR DILLARD Attending Unavailabl e NILESH, [facility] Primary Care Unavailable KARASIK ., DR DILLARD Consulting Unavailabl e GERALDK ., DR DILLARD Attending Unavailsandrine GALLOWAY, [facility] Primary Care Unavailable KARASIK ., DR DILLARD Admitting UnavailDO Tano Villalobos Emergency Provider DALTON Galloway Susan Primary Care Provider Ricarda Galloway Primary Care Unavailable Tano Huffman Attending Unavailable Tano Huffman Admitting Unavailable RADHA SARAH Attending Unavailable LUIZ PAULINO Attending Unavailable Medications Current Medications Medication Drug Class(es) [...] Start: 11-10-2023 Methylprednisolone Active 0 PO .COMPLEX 21 February 14th, 2024 12:00am orally per package directions nicotine 2 [...] [Nausea] Onset: 01-07-2018 Episodic Nonspecific chest pain (2 sources) Atypical chest pain; Translations: [Other chest pain] Onset: 11-09-2023 11-10-2023 Episodic Other diseases of veins and [...] 1V portableon 11-10 XR chest 1V portable [facility] [place] [id number] XRay Report Signed Patient: Laurence Guerra MR#: [id number] : 1985 Acct:[id number] Age/Sex: 38 / F ADM Date: 11/09/23 Loc: ER Room: Type: [facility] ER Attending Dr: Copies to: Tano [...] FINDINGS Impression dictated by: Arie Ty Jr., D.OMike11/10/2023 10:04 AM Dictation Location: [place] [address] Transcribed By: [facility] 11/10/23 1004 Dictated By: Arie Ty Jr, DO 11/10/23 1003 Signed By: 11/10/23 1004 Normal [facility] Basic Metabolic Panelon 10-28 Anion gap [Moles/Vol] 10.8 mmol/L Normal 6.0-15.0 [facility] Comment on above: Performed By: #### B MP, CBC, HS TROP, DDIMER, MONOTEST #### [facility] [address] Calcium [Mass/Vol] 9.5 mg/dL Normal 8.6-10.3 [facility] Comment on above: Performed By: #### B MP, CBC, HS TROP, DDIMER, MONOTEST #### [facility] [address] [place] [address] [place] Chloride [Moles/Vol] 103 mmol/L Normal 98-107 [facility] Comment on above: Performed By: #### B MP, CBC, HS TROP, DDIMER, MONOTEST #### [facility] [address] [place] [address] [place] CO2 [Moles/Vol] 27.0 mmol/L Normal 21.0-31.0 [facility] Comment on above: Performed By: #### B MP, CBC, HS TROP, DDIMER, MONOTEST #### [facility] [address] [place] [address] [place] Creatinine [Mass/Vol] 0.69 mg/dL Normal 0.60-1.20 [facility] Comment on above: Performed By: #### B MP, CBC, HS TROP, DDIMER, MONOTEST #### [facility] [address] [place] [id number] [place] Creatinine Clr Calc Pharmacy 126.[address] [facility] Comment on above: Result Comment: PERF ORMED BY: [place] [address] PATHOLOGIST [employer] JULIA GUARDADO M.D. Performed By: #### B MP, CBC, HS TROP, DDIMER, MONOTEST #### [address] GFR/1.73 sq M.predicted MDRD (S/P/Bld) [Vol rate/Area] mL/min/{1.73_m2} [facility] Comment on above: Performed By: #### B MP, CBC, HS TROP, DDIMER, MONOTEST #### [address] Glucose [Mass/Vol] 98 mg/dL Normal 70-100 [facility] Comment on above: Result Comment: [facility] Glucose Reference Range is dependent on time and content of last meal. Glucose of more than 200 mg/dL in a nonstressed, ambulatory subject supports the diagnosis of Diabetes Mellitus. ADA recommended reference range Performed By: #### B MP, CBC, HS TROP, DDIMER, MONOTEST #### [address] Potassium [Moles/Vol] 3.8 mmol/L Normal 3.5-5.1 [facility] Comment on above: Performed By: #### B MP, CBC, HS TROP, DDIMER, MONOTEST #### [address] Sodium [Moles/Vol] 137 mmol/L Normal 136-145 [facility] Comment on above: Performed By: #### B MP, CBC, HS TROP, DDIMER, MONOTEST #### [address] Urea nitrogen [Mass/Vol] 13 mg/dL Normal 7-25 [facility] Comment on above: Performed By: #### B MP, CBC, HS TROP, DDIMER, MONOTEST #### [place] [address] [place] Basophils Auto (Bld) [#/Vol] Ordered By: Tano Huffman on 11-09-2023 Basophils (Bld) [#/Vol] 0.0 10*3/uL 0.0-0.2 [facility] Basophils/100 WBC Auto (Bld) Ordered By: Tano Huffman on 11-09-2023 Basophils/100 WBC (Bld) 0.6 % . [facility] Calcium [Mass/volume] in Ser um or PlasmaOrdered By: Tano Huffman on 11-09-2023 Calcium [Mass/Vol] 9.5 mg/dL 8.6-10.3 [facility] Carbon dioxide, total [Moles /volume] in Serum or PlasmaOrdered By: Tano Huffman on 11-09-2023 CO2 [Moles/Vol] 27.0 mmol/L 21.0-31.0 [facility] Chloride [Moles/volume] in S marielena or PlasmaOrdered By: Tano Huffman on 11-09-2023 Chloride [Moles/Vol] 103 mmol/L 98-107 [facility] Complete Blood Count Auto Di ffon 11-09-2023 Basophils (Bld) [#/Vol] 0.0 10*3/uL Normal 0.0-0.2 [facility] Comment on above: Result Comment: PERF ORMED BY: [place] [address] PATHOLOGIST [employer] JULIA GUARDADO M.D. Performed By: #### B MP, CBC, HS TROP, DDIMER, MONOTEST #### [facility] [address] Basophils/100 WBC (Bld) 0.6 % Normal . [facility] Comment on above: Performed By: #### B MP, CBC, HS TROP, DDIMER, MONOTEST #### [facility] [address] Eosinophils (Bld) [#/Vol] 0.1 10*3/uL Normal 0.0-0.45 [facility] Comment on above: Performed By: #### B MP, CBC, HS TROP, DDIMER, MONOTEST #### [address] Eosinophils/100 WBC (Bld) 0.9 % Normal . [facility] Comment on above: Performed By: #### B MP, CBC, HS TROP, DDIMER, MONOTEST #### [address] Erythrocyte distribution width (RBC) [Ratio] 15.1 % Normal 11.9-15.3 [facility] Comment on above: Performed By: #### B MP, CBC, HS TROP, DDIMER, MONOTEST #### [address] Hematocrit (Bld) [Volume fraction] 39.0 % Normal 34.0-46.4 [facility] Comment on above: Performed By: #### B MP, CBC, HS TROP, DDIMER, MONOTEST #### [address] Hemoglobin (Bld) [Mass/Vol] 13.5 g/dL Normal 11.8-15.4 [facility] Comment on above: Performed By: #### B MP, CBC, HS TROP, DDIMER, MONOTEST #### [address] Lymphocytes (Bld) [#/Vol] 2.2 10*3/uL Normal 1.00-4.8 [facility] Comment on above: Performed By: #### B MP, CBC, HS TROP, DDIMER, MONOTEST #### [address] Lymphocytes/100 WBC (Bld) 29.2 % Normal . [facility] Comment on above: Performed By: #### B MP, CBC, HS TROP, DDIMER, MONOTEST #### [address] MCH (RBC) [Entitic mass] 28.5 pg Normal 24.7-34.3 [facility] Comment on above: Performed By: #### B MP, CBC, HS TROP, DDIMER, MONOTEST #### [facility] [address] MCV (RBC) [Entitic vol] 82.6 fL Normal 80-100 [facility] Comment on above: Performed By: #### B MP, CBC, HS TROP, DDIMER, MONOTEST #### [address] Mean Corpuscular HGB Conc 34.5 g/dL Normal 32.0-35.0 [facility] Comment on above: Performed By: #### B MP, CBC, HS TROP, DDIMER, MONOTEST #### [address] Monocytes (Bld) [#/Vol] 0.8 10*3/uL Normal 0.0-0.8 [facility] Comment on above: Performed By: #### B MP, CBC, HS TROP, DDIMER, MONOTEST #### [address] Monocytes/100 WBC (Bld) 18.73 % Normal 0.00-20.00 [facility] Comment on above: Performed By: #### B MP, CBC, HS TROP, DDIMER, MONOTEST #### [address] Monocytes/100 WBC (Bld) 11.1 % Normal . [facility] Comment on above: Performed By: #### B MP, CBC, HS TROP, DDIMER, MONOTEST #### [address] Neutrophils (Bld) [#/Vol] 4.5 10*3/uL Normal 1.8-7.7 [facility] Comment on above: Performed By: #### B MP, CBC, HS TROP, DDIMER, MONOTEST #### [address] Neutrophils/100 WBC (Bld) 58.2 % Normal . [facility] Comment on above: Performed By: #### B MP, CBC, HS TROP, DDIMER, MONOTEST #### [address] NRBC% 0.1 /100{WBC} Normal 0-0.5 [facility] Comment on above: Performed By: #### B MP, CBC, HS TROP, DDIMER, MONOTEST #### [facility] [address] Platelet mean volume (Bld) [Entitic vol] 8.3 fL Normal 6.3-10.7 [facility] Comment on above: Performed By: #### B MP, CBC, HS TROP, DDIMER, MONOTEST #### [facility] [address] Platelets (Bld) [#/Vol] 310 10*3/uL Normal 150-450 [facility] Comment on above: Performed By: #### B MP, CBC, HS TROP, DDIMER, MONOTEST #### [facility] [address] RBC (Bld) [#/Vol] 4.72 10*6/uL Normal 3.60-5.00 [facility] Comment on above: Performed By: #### B MP, CBC, HS TROP, DDIMER, MONOTEST #### [facility] [address] WBC (Bld) [#/Vol] 7.7 10*3/uL Normal 3.8-11.6 [facility] Comment on above: Performed By: #### B MP, CBC, HS TROP, DDIMER, MONOTEST #### [address] Creatinine [Mass/volume] in Serum or PlasmaOrdered By: Tano Huffman on 11-09-2023 Creatinine [Mass/Vol] 0.69 mg/dL 0.60-1.20 [facility] D-Dimer High Sensitivityon 0 11-09-2023 D-Dimer High Sensitivity < 200 Normal 0-243 [facility] Comment on above: Result Comment: The [...] coagulation studies. Please contact the laboratory at [phone] for redraw instructions. PERFORMED BY: [place] [address] PATHOLOGIST [employer] JULIA GUARDADO M.D. Performed By: #### B MP, CBC, HS TROP, DDIMER, MONOTEST #### [address] ECG 12 lead ECGon 11-09-2023 ECG 12 lead ECG [facility] [place] [address] [place] [address] Electrocardiograph Report Signed Patient: Laurence Guerra MR#: [id number] : 1985 Acct:[id number] Age/Sex: 38 / F ADM Date: 11/09/23 Loc: ER Room: Type: [facility] ER Attending Dr: Ordering Provider: Tano [...] Sinus rhythm with sinus arrhythmia with short [place] Nonspecific ST abnormality Abnormal ECG No previous ECGs available Confirmed by TANO HUFFMAN DO ([id number]) on 11/10/2023 1:39:03 AM Referred By: Electronically Signed By:TANO HUFFMAN DO Transcribed By: MUS Signed By Tano Huffman DO 11/10 0139 Normal [facility] Eosinophils Auto (Bld) [#/Vo l]Ordered By: Tano Huffman on 11-09-2023 Eosinophils (Bld) [#/Vol] 0.1 10*3/uL 0.0-0.45 [facility] Eosinophils/100 WBC Auto (Bl d)Ordered By: Tano Huffman on 11-09-2023 Eosinophils/100 WBC (Bld) 0.9 % . [facility] Erythrocyte distribution wid th Auto (RBC) [Ratio]Ordered By: Tano Huffman on 11-09-2023 Erythrocyte distribution width (RBC) [Ratio] 15.1 % 11.9-15.3 [facility] Fibrin D-dimer [Presence] in Platelet poor plasma by Latex agglutinationOrdered By: Tano Huffman on 11-09-2023 Fibrin D-dimer LA Ql (PPP) < 200 ng/mL 0-243 [facility] Comment on above: The reference range [...] coagulation studies. Please contact the laboratory at [phone] for redraw instructions. Glucose [Mass/volume] in Ser um or PlasmaOrdered By: Tano Huffman on 11-09-2023 Glucose [Mass/Vol] 98 mg/dL 70-100 [facility] Comment on above: ADA recommended refe rence rangeRandom Glucose Reference Range is dependent on time and content of last meal. Glucose of more than 200 mg/dL in a nonstressed, ambulatory subject supports the diagnosis of Diabetes Mellitus. Hematocrit Auto (Bld) [Volum e fraction]Ordered By: Tano Huffman on 11-09-2023 Hematocrit (Bld) [Volume fraction] 39.0 % 34.0-46.4 [facility] Hemoglobin [Mass/volume] in BloodOrdered By: Tano Huffman on 11-09-2023 Hemoglobin (Bld) [Mass/Vol] 13.5 g/dL 11.8-15.4 [facility] Leukocytes [#/volume] correc fausto for nucleated erythrocytes in Blood by Automated counOrdered By: Tano Huffman on 11-09-2023 WBC corrected for nucl RBC Auto (Bld) [#/Vol] 7.7 10*3/uL 3.8-11.6 [facility] Lymphocytes Auto (Bld) [#/Vo l]Ordered By: Tano Huffman on 11-09-2023 Lymphocytes (Bld) [#/Vol] 2.2 10*3/uL 1.00-4.8 [facility] Lymphocytes/100 WBC Auto (Bl d)Ordered By: Tano Huffman on 11-09-2023 Lymphocytes/100 WBC (Bld) 29.2 % . [facility] MCH Auto (RBC) [Entitic mass ]Ordered By: Tano Huffman on 11-09-2023 MCH (RBC) [Entitic mass] 28.5 pg 24.7-34.3 [facility] MCHC Auto (RBC) [Mass/Vol]Or dered By: Tano Huffman on 11-09-2023 MCHC (RBC) [Mass/Vol] 34.5 g/dL 32.0-35.0 [facility] MCV Auto (RBC) [Entitic vol] Ordered By: Tano Huffman on 11-09-2023 MCV (RBC) [Entitic vol] 82.6 fL 80-100 [facility] Monocyte distribution width [Entitic volume] in Blood by AutomatedOrdered By: Tano Huffman on 11-09-2023 Monocyte distribution width Auto (Bld) [Entitic vol] 18.73 % 0.00-20.00 [facility] Monocytes Auto (Bld) [#/Vol] Ordered By: Tano Huffman on 11-09-2023 Monocytes (Bld) [#/Vol] 0.8 10*3/uL 0.0-0.8 [facility] Monocytes/100 WBC Auto (Bld) Ordered By: Tano Huffman on 11-09-2023 Monocytes/100 WBC (Bld) 11.1 % . [facility] Monoteston 11-09-2023 Monotest Negative Normal Negative [facility] Comment on above: Result Comment: PERF ORMED BY: [facility] [address] [place] [address] PATHOLOGIST [employer] JULIA GUARDADO M.D. Performed By: #### B MP, CBC, HS TROP, DDIMER, MONOTEST #### [facility] [address] Neutrophils Auto (Bld) [#/Vo l]Ordered By: Tano Huffman on 11-09-2023 Neutrophils (Bld) [#/Vol] 4.5 10*3/uL 1.8-7.7 [facility] Neutrophils/100 WBC Auto (Bl d)Ordered By: Tano Huffman on 11-09-2023 Neutrophils/100 WBC (Bld) 58.2 % . [facility] No Panel InformationOrdered By: Tano Huffman on 11-09-2023 Estimated GFR (CKD-EPI) > 60.0 mL/Min [facility] Creatinine Clearance (Chem 126.33 [facility] Nucleated erythrocytes [Pres ence] in Blood by Automated countOrdered By: Tano Huffman on 11-09-2023 Nucleated RBC Auto Ql (Bld) 0.1 /100{WBC} 0-0.5 [facility] Platelet mean volume Auto (B ld) [Entitic vol]Ordered By: Tano Huffman on 11-09-2023 Platelet mean volume (Bld) [Entitic vol] 8.3 fL 6.3-10.7 [facility] Platelets Auto (Bld) [#/Vol] Ordered By: Tano Huffman on 11-09-2023 Platelets (Bld) [#/Vol] 310 10*3/uL 150-450 [facility] Potassium [Moles/volume] in Serum or PlasmaOrdered By: Tano Huffman on 11-09-2023 Potassium [Moles/Vol] 3.8 mmol/L 3.5-5.1 [facility] RBC Auto (Bld) [#/Vol]Ordere d By: Tano Huffman on 11-09-2023 RBC (Bld) [#/Vol] 4.72 10*6/uL 3.60-5.00 [facility] Serum heterophile antibody d etection by latex agglutinationOrdered By: Tano Huffman on 11-09-2023 Heterophile Ab LA Ql (S) Negative Negative [facility] Serum or plasma anion gap de terminationOrdered By: Tano Huffman on 11-09-2023 Anion gap [Moles/Vol] 10.8 mmol/L 6.0-15.0 [facility] Sodium [Moles/volume] in Ser um or PlasmaOrdered By: Tano Huffman on 11-09-2023 Sodium [Moles/Vol] 137 mmol/L 136-145 [facility] Troponin I High Sensitivityo n 11-09-2023 Troponin I High Sensitivity < 2.3 Normal 0.0-15.0 [facility] Comment on above: Result Comment: PERF ORMED BY: [facility] [address] [place] [address] PATHOLOGIST [employer] JULIA GUARDADO M.D. Performed By: #### B MP, CBC, HS TROP, DDIMER, MONOTEST #### [facility] [address] Troponin I.cardiac [Mass/vol ume] in Serum or Plasma by Detection limit <= 0.01 ng/Ordered By: Tano Huffman on 11-09-2023 Troponin I.cardiac DL <= 0.01 ng/mL [Mass/Vol] < 2.3 pg/mL 0.0-15.0 [facility] Urea nitrogen [Mass/volume] in Serum or PlasmaOrdered By: Tano Huffman on 11-09-2023 Urea nitrogen [Mass/Vol] 13 mg/dL 7-25 [facility] WBC Auto (Bld) [#/Vol]Ordere d By: Tano Huffman on 11-09-2023 WBC (Bld) [#/Vol] 7.7 10*3/uL 3.8-11.6 [facility] Operative Reporton Operative Report [id number] Normal [facility] CBC AUTO DIFFon 05-20-2022 BASO # 0.0 103/ul Normal 0.0-0.1 [facility] Comment on above: Performed By: #### C BC #### [facility] [address] [place] [address] [address] Jose Daniel Duke Basophils/100 WBC (Bld) 0.5 % Normal 0.2-2.0 [facility] Comment on above: Performed By: #### C BC #### [facility] [address] [place] [address] [address] Jose Daniel Duke EO # 0.2 103/ul Normal 0.0-0.7 [facility] Comment on above: Performed By: #### C BC #### [facility] [address] [place] [address] Dr. Jose Daniel Duke Eosinophils/100 WBC (Bld) 2.5 % Normal 0.9-7.0 [facility] Comment on above: Performed By: #### C BC #### [facility] [address] [place] [address] Dr. Jose Daniel Duke Erythrocyte distribution width (RBC) [Ratio] 15.7 % Critically high 11.0-15.0 [facility] Comment on above: Performed By: #### C BC #### [facility] [address] [place] [address] Dr. Jose Daniel Duke Hematocrit (Bld) [Volume fraction] 31.5 % Critically low 36.0-48.0 [facility] Comment on above: Performed By: #### C BC #### [facility] [address] [place] [address] Dr. Jose Daniel Duke Hemoglobin (Bld) [Mass/Vol] 10.0 g/dL Critically low 12.0-16.0 [facility] Comment on above: Performed By: #### C BC #### [facility] [address] [place] [address] Dr. Jose Daniel Duke IG # 0.01 10e3/ul Normal 0.00-0.03 [facility] Comment on above: Performed By: #### C BC #### [facility] [address] [place] [address] Dr. Jose Daniel Duke IG % 0.2 % Normal 0.0-0.5 [facility] Comment on above: Performed By: #### C BC #### [facility] [address] [place] [address] Dr. Jose Daniel Duke LYMPH # 2.2 103/ul Normal 1.2-3.8 [facility] Comment on above: Performed By: #### C BC #### [facility] [address] [place] [address] Dr. Jose Daniel Duke Lymphocytes/100 WBC (Bld) 34.4 % Normal 20.5-60.0 [facility] Comment on above: Performed By: #### C BC #### [facility] [address] [place] [address] Dr. Jose Daniel Duke MANUAL DIFF REQ NO Normal [facility] Comment on above: Performed By: #### C BC #### [facility] [address] [place] [address] Dr. Jose Daniel Duke MCH (RBC) [Entitic mass] 26.8 pg Normal 26.7-34.0 [facility] Comment on above: Performed By: #### C BC #### [facility] [address] [place] [address] Dr. Jose Daniel Duke MCHC (RBC) [Mass/Vol] 31.7 g/dL Normal 29.9-35.2 [facility] Comment on above: Performed By: #### C BC #### [facility] [address] [place] [address] Dr. Jose Daniel Duke MCV (RBC) [Entitic vol] 84.5 fL Normal 81.0-99.0 [facility] Comment on above: Performed By: #### C BC #### [facility] [address] [place] [address] Dr. Jose Daniel Duke MONO # 0.9 103/ul Critically high 0.3-0.8 [facility] Comment on above: Performed By: #### C BC #### [facility] [address] [place] [address] Dr. Jose Daniel Duke Monocytes/100 WBC (Bld) 14.7 % Critically high 1.7-12. 0 [facility] Comment on above: Performed By: #### C BC #### [facility] [address] [place] [address] Dr. Jose Daniel Duke NEUT # 3.0 103/ul Normal 1.4-6.5 [facility] Comment on above: Performed By: #### C BC #### [facility] [address] [place] [address] Dr. Jose Daniel Duke Neutrophils/100 WBC (Bld) 47.7 % Normal 43.0-75.0 [facility] Comment on above: Performed By: #### C BC #### [facility] [address] [place] [address] Dr. Jose Daniel Duke Platelet mean volume (Bld) [Entitic vol] 9.7 fL Normal 9.5-13.5 [facility] Comment on above: Performed By: #### C BC #### [facility] [address] [place] [address] Dr. Jose Daniel Duke PLT 251 103/ul Normal 150-450 [facility] Comment on above: Performed By: #### C BC #### [facility] [address] [place] [address] Dr. Jose Daniel Duke RBC 3.73 106/ul Critically low 4.20-5.40 [facility] Comment on above: Performed By: #### C BC #### [facility] [address] [place] [address] Dr. Jose Daniel Duke WBC 6.3 103/ul Normal 4.0-11.0 [facility] Comment on above: Performed By: #### C BC #### [facility] [address] [place] [address] Dr. Jose Daniel Crespo 05-19-2022 Urea nitrogen [Mass/Vol] 9.0 mg/dL Normal 7.0-18.0 [facility] Comment on above: Performed By: #### B LOUIS SURESH #### [facility] [address] [place] [address] [address] Jose Daniel Duke CBC AUTO DIFFon 05-19-2022 BASO # 0.0 103/ul Normal 0.0-0.1 [facility] Comment on above: Performed By: #### C BC #### [facility] [address] [place] [address] [address] Jose Daniel Duke Basophils/100 WBC (Bld) 0.4 % Normal 0.2-2.0 [facility] Comment on above: Performed By: #### C BC #### [facility] [address] [place] [address] Dr. Jose Daniel Duke EO # 0.0 103/ul Normal 0.0-0.7 [facility] Comment on above: Performed By: #### C BC #### [facility] [address] [place] [address] Dr. Jose Daniel Duke Eosinophils/100 WBC (Bld) 0.3 % Critically low 0.9-7.0 [facility] Comment on above: Performed By: #### C BC #### [facility] [address] [place] [address] Dr. Jose Daniel Duke Erythrocyte distribution width (RBC) [Ratio] 15.6 % Critically high 11.0-15.0 [facility] Comment on above: Performed By: #### C BC #### [facility] [address] [place] [address] Dr. Jose Daniel Duke Hematocrit (Bld) [Volume fraction] 32.5 % Critically low 36.0-48.0 [facility] Comment on above: Performed By: #### C BC #### [facility] [address] [place] [address] Dr. Jose Daniel Duke Hemoglobin (Bld) [Mass/Vol] 10.4 g/dL Critically low 12.0-16.0 [facility] Comment on above: Performed By: #### C BC #### [facility] [address] [place] [address] Dr. Jose Daniel Duke IG # 0.04 10e3/ul Critically high 0.00-0.03 [facility] Comment on above: Performed By: #### C BC #### [facility] [address] [place] [address] Dr. Jose Daniel Duke IG % 0.4 % Normal 0.0-0.5 [facility] Comment on above: Performed By: #### C BC #### [facility] [address] [place] [address] Dr. Jose Daniel Duke LYMPH # 1.9 103/ul Normal 1.2-3.8 [facility] [place] Comment on above: Performed By: #### C BC #### [facility] [address] [place] [address] Dr. Jose Daniel Duke Lymphocytes/100 WBC (Bld) 20.3 % Critically low 20.5-60.0 [facility] [place] Comment on above: Performed By: #### C BC #### [facility] [address] [place] [address] Dr. Jose Daniel Duke MANUAL DIFF REQ NO Normal [facility] Comment on above: Performed By: #### C BC #### [facility] [address] [place] [address] Dr. Jose Daniel Duke MCH (RBC) [Entitic mass] 26.9 pg Normal 26.7-34.0 [facility] [place] Comment on above: Performed By: #### C BC #### [facility] [address] [place] [address] Dr. Jose Daniel Duke MCHC (RBC) [Mass/Vol] 32.0 g/dL Normal 29.9-35.2 [facility] [place] Comment on above: Performed By: #### C BC #### [facility] [address] [place] [address] Dr. Jose Daniel Duke MCV (RBC) [Entitic vol] 84.2 fL Normal 81.0-99.0 [facility] Comment on above: Performed By: #### C BC #### [facility] [address] [place] [address] Dr. Jose Daniel Duke MONO # 1.2 103/ul Critically high 0.3-0.8 [facility] Comment on above: Performed By: #### C BC #### [facility] [address] [place] [address] Dr. Jose Daniel Duke Monocytes/100 WBC (Bld) 12.6 % Critically high 1.7-12. 0 [facility] Comment on above: Performed By: #### C BC #### [facility] [address] [place] [address] Dr. Jose Daniel Duke NEUT # 6.2 103/ul Normal 1.4-6.5 [facility] Comment on above: Performed By: #### C BC #### [facility] [address] [place] [address] Dr. Jose Daniel Duke Neutrophils/100 WBC (Bld) 66.0 % Normal 43.0-75.0 [facility] Comment on above: Performed By: #### C BC #### [facility] [address] [place] [address] Dr. Jose Daniel Duke Platelet mean volume (Bld) [Entitic vol] 9.9 fL Normal 9.5-13.5 [facility] Comment on above: Performed By: #### C BC #### [facility] [address] [place] [address] Dr. Jose Daniel Duke PLT 259 103/ul Normal 150-450 [facility] Comment on above: Performed By: #### C BC #### [facility] [address] [place] [address] Dr. Jose Daniel Duke RBC 3.86 106/ul Critically low 4.20-5.40 [facility] Comment on above: Performed By: #### C BC #### [facility] [address] [place] [address] Dr. Jose Daniel Duke WBC 9.3 103/ul Normal 4.0-11.0 [facility] Comment on above: Performed By: #### C BC #### [facility] [address] [place] [address] Dr. Jose Daniel Duke CREATININEon 05-19-2022 Creatinine [Mass/Vol] 0.91 mg/dL Normal 0.55-1.02 [facility] Comment on above: Performed By: #### B DEMETRICE, CREA #### [facility] [address] [address] [address] Jose Daniel Duke EGFR-AF MOSOTHO >60 Normal >=60 [facility] Comment on above: Performed By: #### B UN, CREA #### [facility] [address] [address] [address] Jose Daniel Duke EGFR-NON AF MOSOTHO >60 Normal >=60 [facility] Comment on above: Performed By: #### B UN, CREA #### [facility] [address] [place] [address] Dr. Jose Daniel Duke URon 05-18-2022 , QUAL Negative Normal NEGATIVE [facility] Comment on above: Performed By: #### B UN, CREA #### [facility] [address] [place] [address] Dr. Jose Daniel Duke [facility]on 04-27 SARS-CoV-2 (COVID-19) RNA VON+probe Ql (Unsp spec) Not detected Normal NOT DETECTED [facility] Comment on above: Result Comment: This test is not yet approved or cleared by the [place] FDA. When there are no FDA-approved or cleared tests available, and other criteria are met, FDA can make tests available under an emergency access mechanism called an Emergency Use Authorization (EUA). The EUA for this test is supported by the [employer] Worker of Health and Human Service's (HHS's) declaration [...] Performed By: #### B UN, CREA #### [facility] [address] [place] [address] Dr. Jose Daniel Duke TYPE AND SCREENon 05-14-2022 TYPE AND SCREEN Negative Normal [facility] Comment on above: Performed By: #### B UN, CREA #### [facility] [address] [place] [address] Dr. Jose Daniel Duke Physician Referralon 022 Physician Referral [id number] Normal [facility] URon 04-20-2022 , QUAL Negative Normal NEGATIVE [facility] Comment on above: Performed By: #### P REGU #### [facility] [address] [place] [address] Dr. Jose Daniel Duke T4 [facility] 03-05-2022 T4 [Mass/Vol] 7.4 ug/dL Normal 4.5-12.0 [facility] Comment on above: Performed By: #### T 4LC #### [facility] [address] [place] [address] Dr. Jose Daniel Duke Covid-19 PCR ([facility])on SARS-CoV-2 (COVID-19) RNA VON+probe Ql (Unsp spec) Not detected Normal NOT DETECTED [facility] Comment on above: Result Comment: When [...] for this test is supported by the [place] of Health and Human Service's declaration that [...] Performed By: #### B UN, CREA #### [facility] [address] [place] [address] Dr. Jose Daniel Duke INFLUENZA A AND B AGon 03-02 INFLUANEGH SEE BELOW Normal [facility] [place] Comment on above: Result Comment: Nega tive for Flu A protein angiten. Infection due to Flu A cannot be ruled out. Flu A angiten in the sample may be below the detection limit of the test. Performed By: #### I NFLUAB #### [facility] [address] [place] [address] Dr. Jose Daniel Duke INFLUBNEGH SEE BELOW Normal [facility] [place] Comment on above: Result Comment: Nega tive for Flu B protein antigen. Infection due to Flu B cannot be ruled out. Flu B antigen in the sample may be below the detection limit of the test. Performed By: #### I NFLUAB #### [facility] [address] [place] [address] Dr. Jose Daniel Duke INFLUENZA A AG Negative Normal NEGATIVE SEE COMMENT [facility] [place] Comment on above: Performed By: #### I NFLUAB #### [facility] [address] [place] [address] Dr. Jose Daniel Duke INFLUENZA B AG Negative Normal NEGATIVE SEE COMMENT [facility] Comment on above: Performed By: #### I NFLUAB #### [facility] [address] [place] [address] Dr. Jose Daniel Duke INTERNAL CONTROLS Within Normal Limits Normal Wi thin Normal Limits [facility] Comment on above: Performed By: #### I NFLUAB #### [facility] [address] [place] [address] Dr. Jose Daniel Duke SYMPTOMATIC COVID-19 ANTIGEN on 03-02-2022 EUA Statement SEE BELOW Normal [facility] Comment on above: Result Comment: This [...] sooner. Performed By: #### C VDAGS #### [facility] [address] [place] [address] Dr. Jose Daniel Duke SARS-CoV-2 (COVID-19) RNA VON+probe Ql (Unsp spec) Negative Normal NEGATIVE [facility] [place] Comment on above: Performed By: #### C VDAGS #### [facility] [address] [place] [address] Dr. Jose Daniel Duke INSULINon 02-26-2022 Insulin 6.8 uIU/mL Normal 2.6-24.9 [facility] [place] Comment on above: Performed By: #### B UN, CREA #### [facility] [address] [place] [address] Dr. Jose Daniel Duke CBC AUTO DIFFon 02-25-2022 BASO # 0.1 103/ul Normal 0.0-0.1 [facility] [place] Comment on above: Performed By: #### C BC #### [facility] [address] [place] [address] Dr. Jose Daniel Duke Basophils/100 WBC (Bld) 0.8 % Normal 0.2-2.0 [facility] Comment on above: Performed By: #### C BC #### [facility] [address] [place] [address] Dr. Jose Daniel Duke EO # 0.1 103/ul Normal 0.0-0.7 [facility] [place] Comment on above: Performed By: #### C BC #### [facility] [address] [place] [address] Dr. Jose Daniel Duke Eosinophils/100 WBC (Bld) 1.3 % Normal 0.9-7.0 [facility] [place] Comment on above: Performed By: #### C BC #### [facility] [address] [place] [address] Dr. Jose Daniel Duke Erythrocyte distribution width (RBC) [Ratio] 15.1 % Critically high 11.0-15.0 [facility] [place] Comment on above: Performed By: #### C BC #### [facility] [address] [place] [address] Dr. Jose Daniel Duke Hematocrit (Bld) [Volume fraction] 39.5 % Normal 36.0-48.0 [facility] [place] Comment on above: Performed By: #### C BC #### [facility] [address] [place] [address] Dr. Jose Daniel Duke Hemoglobin (Bld) [Mass/Vol] 12.7 g/dL Normal 12.0-16.0 [facility] [place] Comment on above: Performed By: #### C BC #### [facility] [address] [place] [address] Dr. Jose Daniel Duke IG # 0.01 10e3/ul Normal 0.00-0.03 [facility] [place] Comment on above: Performed By: #### C BC #### [facility] [address] [place] [address] Dr. Jose Daniel Duke IG % 0.2 % Normal 0.0-0.5 [facility] [place] Comment on above: Performed By: #### C BC #### [facility] [address] [place] [address] Dr. Jose Daniel Duke LYMPH # 2.0 103/ul Normal 1.2-3.8 [facility] [place] Comment on above: Performed By: #### C BC #### [facility] [address] [place] [address] Dr. Jose Daniel Duke Lymphocytes/100 WBC (Bld) 32.7 % Normal 20.5-60.0 [facility] [place] Comment on above: Performed By: #### C BC #### [facility] [address] [place] [address] Dr. Jose Daniel Duke MANUAL DIFF REQ NO Normal [facility] Comment on above: Performed By: #### C BC #### [facility] [address] [place] [address] Dr. Jose Daniel Duke MCH (RBC) [Entitic mass] 27.2 pg Normal 26.7-34.0 [facility] [place] Comment on above: Performed By: #### C BC #### [facility] [address] [address] [address] Jose Daniel Duke MCHC (RBC) [Mass/Vol] 32.2 g/dL Normal 29.9-35.2 [facility] [place] Comment on above: Performed By: #### C BC #### [facility] [address] [address] [address] Jose Daniel Duke MCV (RBC) [Entitic vol] 84.6 fL Normal 81.0-99.0 [facility] Comment on above: Performed By: #### C BC #### [facility] [address] [place] [address] Dr. Jose Daniel Duke MONO # 0.8 103/ul Normal 0.3-0.8 [facility] [place] Comment on above: Performed By: #### C BC #### [facility] [address] [place] [address] Dr. Jose Daniel Duke Monocytes/100 WBC (Bld) 12.9 % Critically high 1.7-12. 0 [facility] [place] Comment on above: Performed By: #### C BC #### [facility] [address] [place] [address] Dr. Jose Daniel Duke NEUT # 3.2 103/ul Normal 1.4-6.5 [facility] [place] Comment on above: Performed By: #### C BC #### [facility] [address] [place] [address] Dr. Jose Daniel Duke Neutrophils/100 WBC (Bld) 52.1 % Normal 43.0-75.0 [facility] [place] Comment on above: Performed By: #### C BC #### [facility] [address] [place] [address] Dr. Jose Daniel Duke Platelet mean volume (Bld) [Entitic vol] 10.1 fL Normal 9.5-13.5 [facility] [place] Comment on above: Performed By: #### C BC #### [facility] [address] [place] [address] Dr. Jose Daniel Duke PLT 314 103/ul Normal 150-450 [facility] Comment on above: Performed By: #### C BC #### [facility] [address] [place] [address] Dr. Jose Daniel Duke RBC 4.67 106/ul Normal 4.20-5.40 [facility] [place] Comment on above: Performed By: #### C BC #### [facility] [address] [place] [address] Dr. Jose Daniel Duke WBC 6.1 103/ul Normal 4.0-11.0 [facility] [place] Comment on above: Performed By: #### C BC #### [facility] [address] [place] [address] Dr. Jose Daniel Duke FREE THYROXINE INDEX T7on FTI 2.37 Normal 1.30-4.50 [facility] [place] Comment on above: Performed By: #### B UN, CREA #### [facility] [address] [place] [address] Dr. Jose Daniel Duke T3U 32.0 % Normal 30.0-39.0 [facility] [place] Comment on above: Performed By: #### B UN, CREA #### [facility] [address] [place] [address] Dr. Jose Daniel Duke T4 [Mass/Vol] 7.40 ug/dL Normal 4.80-13.90 [facility] Comment on above: Result Comment: T4 t esting performed by [facility] Performed By: #### B UN, CREA #### [facility] [address] [place] [address] Dr. Jose Daniel Duke GLYCOHEMOGLOBIN A1Con 2021 ADA RECOMMENDATION SEE BELOW Normal [facility] Comment on above: Result Comment: ADA RECOMMENDED LIMIT 4.0 - 6.0 ADA THERAPEUTIC TARGET < 7.0 ACTION SUGGESTED > 7.0 Performed By: #### A 1C #### [facility] [address] [place] [address] Dr. Jose Daniel Duke Glucose [Mass/Vol] 111 mg/dL Normal [facility] Comment on above: Performed By: #### A 1C #### [facility] [address] [place] [address] Dr. Jose Daniel Duke HbA1c (Bld) [Mass fraction] 5.5 % Normal 4.5-6.2 [facility] [place] Comment on above: Performed By: #### A 1C #### [facility] [address] [place] [address] Dr. Jose Daniel Duke IRONon 02-25-2022 Iron [Mass/Vol] 77.0 ug/dL Normal 50.0-170.0 [facility] Comment on above: Performed By: #### B UN, CREA #### [facility] [address] [place] [address] Dr. Jose Daniel Duke LIPID PROFILEon 02-25-2022 CHOL-HDL RATIO NORM SEE BELOW Normal [facility] Comment on above: Result Comment: 3.3 - 4.4 LOW RISK 4.4 - 7.1 AVERAGE RISK 7.1 - 11.0 MODERATE RISK >11.0 HIGH RISK Performed By: #### B UN, CREA #### [facility] [address] [address] [address] Jose Daniel Duke Cholesterol [Mass/Vol] 163 mg/dL Normal <=200 [facility] Comment on above: Performed By: #### B UN, CREA #### [facility] [address] [place] [address] Dr. Jose Daniel Duke Cholesterol in HDL [Mass/Vol] 55 mg/dL Normal 40-60 [facility] [place] Comment on above: Performed By: #### B UN, CREA #### [facility] [address] [address] [address] Jose Daniel Duke Cholesterol in LDL [Mass/Vol] 77.2 mg/dL Normal [facility] [place] Comment on above: Performed By: #### B UN, CREA #### [facility] [address] [address] [address] Jose Daniel Duke Cholesterol.total/Janie sterol in HDL [Mass ratio] 3.0 {ratio} Normal [facility] [place] Comment on above: Performed By: #### B UN, CREA #### [facility] [address] [address] [address] Jose Daniel Duke HDL NORMAL > or = 60 mg/dl - LO W CARDIOVASCULAR RISK <40 mg/dl - HIGH CARDIOVASCULAR RISK Normal [facility] [place] Comment on above: Performed By: #### B UN, CREA #### [facility] [address] [place] [address] Dr. Jose Daniel Duke LDL CALC NORMAL SEE BELOW Normal [facility] Comment on above: Result Comment: <100 mg/dl OPTIMAL 100 - 129 mg/dl NEAR OR ABOVE OPTIMAL 130 - 159 mg/dl BORDERLINE HIGH 160 - 189 mg/dl HIGH >190 mg/dl VERY HIGH Performed By: #### B UN, CREA #### [facility] [address] [place] [address] Dr. Jose Daniel Duke Triglyceride [Mass/Vol] 154 mg/dL Critically high <=150 [facility] Comment on above: Performed By: #### B UN, CREA #### [facility] [address] [place] [address] Dr. Jose Daniel Duke VLDL CALC 30.8 mg/dL Normal [facility] [place] Comment on above: Performed By: #### B UN, CREA #### [facility] [address] [place] [address] Dr. Jose Daniel Duke PROF 14(COMP METB)on 022 Albumin [Mass/Vol] 3.8 g/dL Normal 3.4-5.0 [facility] Comment on above: Performed By: #### B UN, CREA #### [facility] [address] [place] [address] Dr. Jose Daniel Duke Albumin/Globulin [Mass ratio] 1.0 {ratio} Normal [facility] [place] Comment on above: Performed By: #### B UN, CREA #### [facility] [address] [place] [address] Dr. Jose Daniel Duke ALP [Catalytic activity/Vol] 60 U/L Normal 46-116 [facility] Comment on above: Performed By: #### B UN, CREA #### [facility] [address] [place] [address] Dr. Jose Daniel Duke ALT [Catalytic activity/Vol] 15 U/L Normal 14-59 [facility] [place] Comment on above: Performed By: #### B UN, CREA #### [facility] [address] [address] [address] Jose Daniel Duke Anion gap [Moles/Vol] 14.5 mmol/L Normal [facility] Comment on above: Performed By: #### B UN, CREA #### [facility] [address] [address] [address] Jose Daniel Duke AST [Catalytic activity/Vol] 10 U/L Critically low 15-37 [facility] [place] Comment on above: Performed By: #### B UN, CREA #### [facility] [address] [place] [address] Dr. Jose Daniel Duke Bilirubin [Mass/Vol] 0.2 mg/dL Normal 0.2-1.0 [facility] [place] Comment on above: Performed By: #### B UN, CREA #### [facility] [address] [place] [address] Dr. Jose Daniel Duke Calcium [Mass/Vol] 8.8 mg/dL Normal 8.5-10.1 [facility] Comment on above: Performed By: #### B UN, CREA #### [facility] [address] [address] [address] Jose Daniel Duke Chloride [Moles/Vol] 102 mmol/L Normal 98-107 [facility] [place] Comment on above: Performed By: #### B UN, CREA #### [facility] [address] [place] [address] Dr. Jose Daniel Duke CO2 [Moles/Vol] 24.8 mmol/L Normal 21.0-32.0 [facility] Comment on above: Performed By: #### B UN, CREA #### [facility] [address] [place] [address] Dr. Jose Daniel Duke Creatinine [Mass/Vol] 0.80 mg/dL Normal 0.55-1.02 [facility] [place] Comment on above: Performed By: #### B UN, CREA #### [facility] [address] [place] [address] Dr. Jose Daniel Duke EGFR-AF MOSOTHO >60 Normal >=60 [facility] Comment on above: Performed By: #### B UN, CREA #### [facility] [address] [address] [address] Jose Daniel Duke EGFR-NON AF MOSOTHO >60 Normal >=60 [facility] [place] Comment on above: Performed By: #### B UN, CREA #### [facility] [address] [address] [address] Jose Daniel Duke Globulin (S) [Mass/Vol] 3.7 g/dL Normal T [facility] Comment on above: Performed By: #### B UN, CREA #### [facility] [address] [address] [address] Jose Daniel Duke Glucose [Mass/Vol] 94 mg/dL Normal 74-106 [facility] Comment on above: Performed By: #### B UN, CREA #### [facility] [address] [place] [address] Dr. Jose Daniel Duke Potassium [Moles/Vol] 4.3 mmol/L Normal 3.5-5.1 [facility] [place] Comment on above: Performed By: #### B UN, CREA #### [facility] [address] [place] [address] Dr. Jose Daniel Duke Protein [Mass/Vol] 7.5 g/dL Normal 6.4-8.2 [facility] Comment on above: Performed By: #### B UN, CREA #### [facility] [address] [address] [address] Jose Daniel Duke Sodium [Moles/Vol] 137 mmol/L Normal 136-145 [facility] Comment on above: Performed By: #### B UN, CREA #### [facility] [address] [address] [address] Jose Daniel Duke Urea nitrogen [Mass/Vol] 13.0 mg/dL Normal 7.0-18.0 [facility] [place] Comment on above: Performed By: #### B UN, CREA #### [facility] [address] [address] [address] Jose Daniel Duke Urea nitrogen/Creatinine [Mass ratio] 16.2 mg/mg Normal [facility] [place] Comment on above: Performed By: #### B UN, CREA #### [facility] [address] [address] [address] Jose Daniel Duke TSHon 02-25-2022 TSH 1.593 uIU/mL Normal 0.358-3.740 [facility] Comment on above: Performed By: #### B UN, CREA #### [facility] [address] [address] [address] Jose Daniel Duke TSH RANGE SEE BELOW Normal [facility] [place] Comment on above: Result Comment: <0.3 4 UIU/ml HYPERTHYROID 0.34-5.60 UIU/ml EUTHYROID >5.60 UIU/ml HYPOTHYROID Performed By: #### B UN, CREA #### [facility] [address] [address] [address] Jose Daniel Duke ED NOTEon 10-12-2018 ED NOTE HNO ID: [id number] Author: Melva NinaRn) JOCELINE Garcia Service: Nursing Author Type: Registered Nurse Type: ED Notes Filed: 10/12/2018 11:29 AM Note Text: Patient given discharge prescriptions of Augmentin and follow up instructions. Patient verbalizes understanding of education. VSS, left stable and ambulatory. [facility] ED NOTE HNO ID: [id number] Author: Melva Alves) JOCELINE Garcia Service: Nursing Author Type: Registered Nurse Type: ED Notes Filed: 10/12/2018 11:13 AM Note Text: Steri strips applied to left finger [facility] ED NOTE HNO ID: [id number] Author: Melva Alves) JOCELINE Garcia Service: Nursing Author Type: Registered Nurse Type: ED Notes Filed: 10/12/2018 9:34 AM Note Text: Patient states was bit by a dog at work this morning around 0845. Dog was not UTD on shots. She had a tetanus shot and rabies vaccines 4 years ago while at work in [place]. Bleeding is controlled. [facility] ED PROV NOTEon 10-12-2018 Protein mass conc HNO ID: [id number] Author: Tameka Jc MD Service: Emergency Medicine Author Type: Physician Type: ED Provider Notes Filed: 10/12/2018 11:12 AM Note Text: ED Provider Note Patient Name: Laurence Guerra SERVICE DATE: 10/12/18 History Patient presents with: Dog Bite: bitten both index fingertips at work 30min [employer]hop [employer] [place]: Patient present with complaint of dog bite to bilateral index fingers. Onset was 8:30 AM, with stable course since that time. 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 Basophil 0.05 k/uL Normal 0.00-0.20 [facility] Comment on above: Performed By: #### C DP ####[address] [address] #### CP ####[address] [place] [address] Abs.Neutrophil (Seg) 5.75 k/uL Normal 1.50-8.10 [facility] Comment on above: Performed By: #### C DP ####[address] [place] [address] #### CP ####[address] [place] [address] Basophils/100 WBC Auto (Bld) 1 % Normal 0-2 [facility] Comment on above: Performed By: #### C DP ####[address] [address] #### CP ####[address] [place] [address] Eosinophils 0.03 10*3/uL Normal 0.00-0.44 [facility] Comment on above: Performed By: #### C DP ####[address] [address] #### CP ####[address] [place] [address] Eosinophils/100 leukocytes 0 % Low 1-4 [facility] Comment on above: Performed By: #### C DP ####[address] [address] #### CP ####[address] [place] [address] Erythrocyte distribution width Auto Ratio (RBC) 15.3 % High 11.8-14.4 [facility] Comment on above: Performed By: #### C DP ####[address] [address] #### CP ####[address] [place] [address] Erythrocytes (RBC) 4.72 10*6/uL Normal 3.95-5.11 [facility] Comment on above: Performed By: #### C DP ####[address] [address] #### CP ####[address] [place] [address] Erythrocytes (RBC) 0.0 per 100 WBC Normal 0.0 [facility] Comment on above: Performed By: #### C DP ####[address] [address] #### CP ####[address] [place] [address] Granulocytes/100 WBC (Bld) 0.03 k/uL Normal 0.00-0.30 [facility] Comment on above: Result Comment: Perf ormed at [address] [address] Performed By: #### C DP ####[address] [address] #### CP ####[address] [place] [address] Hematocrit (HCT) 39.1 % Normal 36.3-47.1 [facility] Comment on above: Performed By: #### C DP ####[address] [address] #### CP ####[address] [place] [id number] Hemoglobin mass conc (Bld) 12.6 g/dL Normal 11.9-15.1 [facility] Comment on above: Performed By: #### C DP ####[address] [address] #### CP ####[address] [place] [address] Immature granulocytes #/vol (Bld) 0 % Normal 0 [facility] Comment on above: Performed By: #### C DP ####[address] [address] #### CP ####[address] [place] [address] Lymphocytes 1.46 10*3/uL Normal 1.10-3.70 [facility] Comment on above: Performed By: #### C DP ####[address] [address] #### CP ####[address] [place] [address] Lymphocytes/100 leukocytes 18 % Low 24-43 [facility] Comment on above: Performed By: #### C DP ####[address] [address] #### CP ####[address] [place] [address] MCH 26.7 pg Normal 25.2-33.5 [facility] Comment on above: Performed By: #### C DP ####[address] [address] #### CP ####[address] [place] [id number] MCHC mass conc (RBC) 32.2 g/dL Normal 28.4-34.8 [facility] Comment on above: Performed By: #### C DP ####[address] [address] #### CP ####[address] [place] [address] MCV 82.8 fL Normal 82.6-102.9 [facility] Comment on above: Performed By: #### C DP ####[address] [address] #### CP ####[address] [place] [address] Monocytes 0.70 10*3/uL Normal 0.10-1.20 [facility] Comment on above: Performed By: #### C DP ####[address] [address] #### CP ####[address] [place] [address] Monocytes/100 leukocytes 9 % Normal 3-12 [facility] Comment on above: Performed By: #### C DP ####[address] [address] #### CP ####[address] [place] [address] Neutrophil (Seg) 72 % High 36-65 [facility] Comment on above: Performed By: #### C DP ####[address] [address] #### CP ####[address] [place] [address] Platelet mean volume (PMV) 9.9 fL Normal 8.1-13.5 [facility] Comment on above: Performed By: #### C DP ####[address] [address] #### CP ####[address] [place] [address] Platelets 330 10*3/uL Normal 138-453 [facility] Comment on above: Performed By: #### C DP ####[address] [address] #### CP ####[address] [place] [address] WBC (Leukocytes) 8.0 10*3/uL Normal 3.5-11.3 [facility] Comment on above: Performed By: #### C DP ####[address] [address] #### CP ####[address] [place] [address] Auto Diff Performed NOT REPORTED Normal [facility] Comment on above: Performed By: #### C DP ####[address] [address] #### CP ####[address] [place] [address] Erythrocyte morphology NOT REPORTED Normal [facility] Comment on above: Performed By: #### C DP ####[facility] [place] [address] #### CP ####[address] [place] [address] Platelets NOT REPORTED Normal [facility] Comment on above: Performed By: #### C DP ####[facility] [place] [address] #### CP ####[address] [place] [address] WBC Morphology NOT REPORTED Normal [facility] Comment on above: Performed By: #### C DP ####[address] [address] #### CP ####[address] [place] [address] CT ABDOMEN PELVIS WO CONTRAS Ton 01-07-2018 [...] by:ANGELICA Barrettigned by:Laurence Huitron MD01/07/18Final result Normal [facility] Comp Metabolic Profon 2017 (cont.) Normal [facility] Comment on above: Result Comment: Aver age GFR for 30-39 years old: 107 mL/min/1.73sq mChronic Kidney Disease: <60 mL/min/1.73sq mKidney failure: <15 mL/min/1.73sq meGFR calculated using average adult body mass. Additional eGFR calculator available at:[email or web address]_[email or web address].htm Performed By: #### C DP ####[address] [address] #### CP ####[address] [place] [address] Alanine aminotransferase (ALT) 7 U/L Normal 5-33 [facility] Comment on above: Performed By: #### C DP ####[address] [address] #### CP ####[address] [place] [address] Albumin 4.6 g/dL Normal 3.5-5.2 [facility] Comment on above: Performed By: #### C DP ####[address] [address] #### CP ####[address] [place] [address] Albumin/Globulin Ratio 1.5 {ratio} Normal 1.0-2.5 [facility] Comment on above: Performed By: #### C DP ####[address] [address] #### CP ####[address] [place] [address] Alkaline Phos 65 U/L Normal 35-104 [facility] Comment on above: Performed By: #### C DP ####[address] [address] #### CP ####[address] [place] [address] Anion gap 13 mmol/L Normal 9-17 [facility] Comment on above: Performed By: #### C DP ####[address] [address] #### CP ####[address] [place] [address] Aspartate aminotransferase (AST) 14 U/L Normal <32 [facility] Comment on above: Performed By: #### C DP ####[address] [address] #### CP ####[address] [place] [address] Bilirubin Ql (U) 0.18 mg/dL Low 0.3-1.2 [facility] Comment on above: Performed By: #### C DP ####[address] [address] #### CP ####[address] [place] [address] BUN/CRE Ratio 13 Normal 9-20 [facility] Comment on above: Performed By: #### C DP ####[address] [address] #### CP ####[address] [place] [address] Calcium 9.6 mg/dL Normal 8.6-10.4 [facility] Comment on above: Performed By: #### C DP ####[address] [address] #### CP ####[address] [place] [address] Chloride 100 mmol/L Normal 98-107 [facility] Comment on above: Performed By: #### C DP ####[address] [address] #### CP ####[address] [place] [address] CO2 24 mmol/L Normal 20-31 [facility] Comment on above: Performed By: #### C DP ####[address] [address] #### CP ####[address] [place] [address] Creatinine 0.63 mg/dL Normal 0.50-0.90 [facility] Comment on above: Performed By: #### C DP ####[address] [address] #### CP ####[address] [place] [address] eGFR (non-black) mL/min/{1.73_m2} Normal >60 [facility] Comment on above: Performed By: #### C DP ####[address] [address] #### CP ####[address] [place] [address] Glucose mass conc 98 mg/dL Normal 70-99 [facility] Comment on above: Performed By: #### C DP ####[address] [address] #### CP ####[address] [place] [address] Potassium molar conc 4.1 mmol/L Normal 3.7-5.3 [facility] Comment on above: Performed By: #### C DP ####[address] [address] #### CP ####[address] [place] [address] Protein 7.7 g/dL Normal 6.4-8.3 [facility] Comment on above: Performed By: #### C DP ####[address] [address] #### CP ####[address] [place] [address] Sodium 137 mmol/L Normal 135-144 [facility] Comment on above: Performed By: #### C DP ####[address] [address] #### CP ####[address] [place] [address] Staging: Normal [facility] Comment on above: Result Comment: Stag e 1: Some kidney damage normal GFRStage 2: Mild kidney damage GFR 60-89Stage 3: Moderate kidney damage GFR 30-59Stage 4: Severe kidney damage GFR 15-29Stage 5: Severe kidney damage GFR <15ESRD - chronic treatment by dialysis or transplantPerformed at [address] [place] [address] Performed By: #### C DP ####[address] [address] #### CP ####[address] [place] [address] Urea nitrogen 8 mg/dL Normal 6-20 [facility] Comment on above: Performed By: #### C DP ####[facility] [address] [place], [place] [id number] #### CP ####[address] [place] [address] ED Provider Noteon 8 HIM IP Note OR Tissue Technician Normal [facility] HCG, Quanton 01-07-2018 HCG, Quant <1 Normal <5 [facility] Comment on above: Result Comment: Non- preg premeno <=5Postmeno <=8Male <=3If HCG results do not concur with clinical observations, additional testing to confirm result is recommended. This test is not labeled for use as a tumor marker.Performed at [address] [place] [address] Performed By: #### B HCG ####[address] [place] [address] Urinalysis, Routineon 2017 Acetaminophen mass conc 1+ Abnormal NEG M [facility] Comment on above: Performed By: #### U A, UMICAO ####[address] [place] [address] Bilirubin (direct) Negative Normal NEG [facility] Comment on above: Performed By: #### U A, UMICAO ####[address] [place] [address] Hemoglobin mass conc (Bld) TRACE Abnormal NEG [facility] Comment on above: Performed By: #### U A, UMICAO ####[address] [place] [address] Nitrite,Ur Negative Normal NEG [facility] Comment on above: Performed By: #### U A, UMICAO ####[address] [place] [address] Turbidity CLEAR Normal CLEAR [facility] Comment on above: Performed By: #### U A, UMICAO ####[address] [place] [address] Urine, color YELLOW Normal YEL [facility] Comment on above: Performed By: #### U A, UMICAO ####[address] [place] [address] Urine, glucose presence Negative Normal NEG [facility] Comment on above: Performed By: #### U A, UMICAO ####[address] [place] [address] Urine, leukocyte esterase presence Negative Normal NEG [facility] Comment on above: Result Comment: Perf ormed at [address] [place] [address] Performed By: #### U A, UMICAO ####[address] [place] [address] Urine, pH 6.0 [pH] Normal 5.0-9.0 [facility] Comment on above: Performed By: #### U A, UMICAO ####[address] [place] [address] Urine, protein presence Negative Normal NEG [facility] Comment on above: Performed By: #### U A, UMICAO ####[address] [place] [address] Urine, specific gravity 1.025 High 1.010-1.020 [facility] Comment on above: Performed By: #### U A, UMICAO ####[address] [place] [address] Urobilinogen,Ur Normal Normal NORM [facility] Comment on above: Performed By: #### U A, UMICAO ####[address] [place] [address] Comment NOT REPORTED Normal [facility] Comment on above: Performed By: #### U A, UMICAO ####[address] [place] [address] Urinalysis,Microon 8 ----- Normal [facility] Comment on above: Performed By: #### U A, UMICAO ####[address] [place] [address] Urine WBC's 0 TO 2 Normal 0-5 [facility] Comment on above: Performed By: #### U A, UMICAO ####[address] [place] [address] Urine, epithelial cells in sediment 2 TO 5 Normal 0-25 [facility] Comment on above: Result Comment: Perf ormed at [address] [place] [address] Performed By: #### U A, UMICAO ####[address] [place] [address] Urine, erythrocytes None Normal 0-2 [facility] Comment on above: Performed By: #### U A, UMICAO ####[address] [place] [address] Epithelial, Renal NOT REPORTED Normal 0 [facility] Comment on above: Performed By: #### U A, UMICAO ####[address] [place] [address] Mucus Strands NOT REPORTED Normal NONE [facility] Comment on above: Performed By: #### U A, UMICAO ####[address] [place] [address] Other Observations NOT REPORTED Normal NREQ [facility] Comment on above: Performed By: #### U A, UMICAO ####[address] [place] [address] Trichomonas NOT REPORTED Normal NONE [facility] Comment on above: Performed By: #### U A, UMICAO ####[address] [place] [address] Urine, amorphous sediment presence in sediment NOT REPORTED Normal NONE [facility] Comment on above: Performed By: #### U A, UMICAO ####[address] [place] [address] Urine, bacteria in sediment NOT REPORTED Normal NONE [facility] Comment on above: Performed By: #### U A, UMICAO ####[address] [place] [address] Urine, casts in sediment NOT REPORTED Normal [facility] Comment on above: Performed By: #### U A, UMICAO ####[address] [place] [address] Urine, crystals in sediment NOT REPORTED Normal NONE [facility] Comment on above: Performed By: #### U A, UMICAO ####[address] [place] [address] Urine, yeast presence in sediment NOT REPORTED Normal NONE [facility] Comment on above: Performed By: #### U A, UMICAO ####[address] [place] [address] Vital Signs Date Time Vital Sign Value Performing Clinician Pamela william 11-10-2023 01:33-0500 Diastolic blood pressure 65 mm[Hg] DO Tano Huffman Work Phone: [facility] 11-10-2023 01:33-0500 Heart rate 61 /min DO Tano Huffman Work Phone: [facility] 11-10-2023 01:33-0500 Respiratory rate 18 /min DO Tano Huffman Work Phone: [facility] 11-10-2023 01:33-0500 SaO2% (BldA) [Mass fraction] 99 % DO Tano Huffman Work Phone: [facility] 11-10-2023 01:33-0500 Systolic blood pressure 107 mm[Hg] DO Tano Huffman Work Phone: [facility] 11-09-2023 19:34-0500 Body height 172.72 cm DO Tano Huffman Work Phone: [facility] 11-09-2023 19:34-0500 Body temperature 98 [degF] DO Tano Huffman Work Phone: [facility] 11-09-2023 19:34-0500 Body weight 81.64 kg DO Tano Huffman Work Phone: [facility] Encounters Encounter Date Encounter Type Care Provider Facility Start: 12-15-2023 End: 12-15-2023 ambulatory LUIZ PAULINO Not Available Start: 11-09-2023 End: 11-10-2023 Emergency department patient visit Ricarda Galloway Facility:[facility] Start: 11-09-2023 End: 11-10-2023 Emergency department patient visit DO Tano Huffman Work Phone: [facility] Work Phone: Start: 10-20-2023 End: 10-20-2023 ambulatory RADHA SARAH Not Available Start: 05-18-2022 End: 05-20-2022 Evaluation and management of inpatient DR GILMA ISABEL . Facility:[facility] Start: 05-15-2022 Encounter for preprocedural laboratory examination DR GILMA ISABEL . [facility] Start: 05-14-2022 End: 05-15-[address] GILMA ISABEL . Facility:[facility] Start: 05-14-2022 End: 05-15-2022 Encounter for preprocedural laboratory examination DR GILMA ISABEL . Facility:[facility] Start: 05-13-[address] GILMA ISABEL . Fa cility:[facility] Start: 04-20-2022 End: 04-20-[address] GILMA ISABEL . Facility:[facility] Start: 04-15-2022 End: 04-16-[address] GILMA ISABEL . Facility:[facility] Start: 03-25-2022 End: 03-25-2022 ambulatory RICARDA NGMER Facility:[facility] Start: 03-20-2022 ambulatory RICARDA GALLOWAY Facility: [facility] Start: 03-04-2022 Encounter for genera l adult medical examination without abnormal findings RICARDA GALLOWAY [facility] Start: 03-04-2022 Encounter for other preprocedural examination DR GILMA ISABEL . [facility] Start: 03-02-2022 End: 03-02-[address] GILMA ISABEL . Facility:[facility] Start: 02-26-2022 ambulatory RICARDA NILESH Facility: [facility] Start: 02-25-2022 End: 02-26-2022 Encounter for general adult medical examination without abnormal findings RICARDA GALLOWAY Facility:[facility] Start: 02-25-2022 End: 02-26-2022 ambulatory RICARDAREYNALDO GALLOWAY Facility:[facility] Start: 02-25-2022 End: 02-26-2022 Encounter for other preprocedural examination DR GILMA ISABEL . Facility:[facility] Start: 10-12-2018 End: 10-12-2018 Emergency department patient visit [facility] Start: 01-07-2018 End: 01-07-2018 Emergency department patient visit [facility] Procedures Date Procedure Procedure Detail Performing Clinician [...] chest X-ray XR chest 1V portab le [facility] Start: 11-09-2023 XR Chest Single view [facility] Patient Education Lymphadenitis (DC) Chest Pain, Adult ED [facility] Work Phone: Patient referral [facility] Work Phone: Payers Date Payer Category Payer Unknown [id number] 2023 Unknown [id number] 2017 Unknown [id number] 1987 Unknown [id number] 1987 Unknown [id number] 2.16.840.1.102636.3.579.2.593 1987 Unknown [id number] 2.16.840.1.718804.3.579.2.593 1987 Unknown [id number] 2.16.840.1.876630.3.579.2.593 1987 Unknown [id number] 2.16.840.1.777401.3.579.2.593 1987 Unknown [id number] 2.16.840.1.120327.3.579.2.593 1987 Unknown [id number] 2.16.840.1.493786.3.579.2.593 1987 Unknown [id number] 2.16.840.1.174047.3.579.2.593 1987 Unknown [id number] 2.16.840.1.814329.3.579.2.593 1987 Unknown [id number] 2.16.840.1.515541.3.579.2.593 1987 Unknown [id number] 2.16.840.1.645633.3.579.2.593 1987 Unknown [id number] 2.16.840.1.247099.3.579.2.593 1987 Unknown [id number] 2.16.840.1.674544.3.579.2.1259 1987 Unknown [id number] 2.16.840.1.315794.3.579.2.1259 1959 Self-pay 1959 Unknown [id number] [facility] [id number] Unknown [id number] Unknown [employer]ARON [id number] Unknown HCAP/HFA/FAP Active [id number] Unknown [id number] [id number] Social History Date Type Detail Facility Start: 11-10-2023 Tobacco smoking stat [facility] Smoker (finding) [facility] Start: 1985 Sex Assigned At Female F [facility] Evaluation note Note Date & Type Note Facility Evaluation note No assessment information availa [facility] Work Phone: Summary Purpose Family History [...] DATE CREATED AUTHOR AUTHOR'S ORGANIZ ATION 10/17/2018 [facility] DATE CREATED AUTHOR AUTHOR'S ORGANIZ ATION 05/27/2022 Tom Guerrero [facility] DATE CREATED AUTHOR AUTHOR'S ORGANIZ ATION 02/03/2023 [facility] DATE CREATED AUTHOR AUTHOR'S ORGANIZ ATION 11/27/2023 [facility] DATE CREATED AUTHOR AUTHOR'S ORGANIZ ATION 12/17/2023 [facility] [employer] Care Teams (unrecognized sec tion and content) [...] BE BASED ON THE PRIMARY CLINICAL RECORDS. [facility] [employer] [facility]. provides no warranty or guarantee of the accuracy or completeness of information in this document.
--- NOTE | 2023-12-22 21:20 | ED_ITS ---
HPI - Allergic Reaction General Chief complaint: Allergic Reaction Stated complaint: Allergic Reaction Time Seen by Provider: 12/22/23 21:12 Source: patient Mode of arrival: walk-in Limitations: no limitations History of Present Illness HPI narrative: Patient is a 38-year-old female who presents to the emergency department for suspected allergic reaction. She states throughout the day she has had itching of the hands, she has now developed splotchy urticaria of the upper extremities, buttocks, lower extremities. She states just prior to arrival she noted swelling and tingling around the mouth and face. She has not had any swelling inside the mouth, tongue or throat. She is speaking and breathing easily. She is not concerned for . She did not take any medication at home prior to arrival. Related Data Home Medications ?Medication ?Instructions ?Recorded ?Confirmed amoxicillin 500 mg capsule 500 mg PO Q12H 11/07/23 12/22/23 atomoxetine 18 mg capsule 18 mg PO DAILY 11/07/23 12/22/23 buspirone 5 mg tablet 5 mg PO DAILY 11/07/23 12/22/23 lamotrigine 200 mg tablet 200 mg PO Q12H 11/07/23 12/22/23 lurasidone 40 mg tablet 40 mg PO DAILY 11/07/23 12/22/23 viloxazine 100 mg capsule,extended mg PO DAILY 11/07/23 release 24 hr (Qelbree) Previous Rx's ?Medication ?Instructions ?Recorded famotidine 20 mg tablet (Pepcid) 20 mg PO BID #10 tabs 12/22/23 hydroxyzine HCl 25 mg tablet 25 mg PO Q6H PRN itching #20 tabs 12/22/23 prednisone 20 mg tablet See Rx Instructions .Route 12/22/23 .COMPLEX #12 tabs Allergies Allergy/AdvReac Type Severity Reaction Status Date / Time No Known Drug Allergies Allergy Verified 11/07/23 17:53 Review of Systems ROS Constitutional Denies: fever or chills Ears, nose, mouth, and throat Denies: throat pain or nasal congestion Cardiovascular Denies: chest pain Respiratory Denies: shortness of breath or cough Gastrointestinal Denies: nausea or vomiting Integumentary/Breast Reports: rash and itching Neurological Denies: headache Allergic/Immunologic Reports: hives PFSH PFSH Social History Smoking status: Never smoker Exam Narrative Exam Narrative: Gen.: Awake, alert, in no distress Head: Normocephalic, atraumatic ENT: Moist mucous membranes, No apparent swelling of the lips with minimal edema noted around the mouth and cheeks, faint erythema Noted.Airway is widely open and patent with uvula midline. Respiratory: No respiratory distress, lungs clear bilaterally; No wheezing or stridor Cardio: Regular rate and rhythm Extremities: Moves extremities equally Psych: Normal mood and affect Neuro: No focal neuro deficit Skin: Warm, dry, intact; Area noted to the dorsums of the hands, upper arms. Faint erythematous rash of the face. No vesicles, crusting, petechiae or purpura. No mucous membrane involvement. Constitutional Vital Signs, click to edit/add: Last Vital Signs Temp 97.7 F 12/22/23 21:04 Pulse 81 12/22/23 21:04 Resp 18 12/22/23 21:04 BP 123/83 12/22/23 21:04 Pulse Ox 99 12/22/23 21:04 O2 Del Method Room Air 12/22/23 21:04 Course Vital Signs Vital signs: Vital Signs Temperature 97.7 F 12/22/23 21:04 Pulse Rate 81 12/22/23 21:04 Respiratory Rate 18 12/22/23 21:04 Blood Pressure 123/83 12/22/23 21:04 Pulse Oximetry 99 12/22/23 21:04 Oxygen Delivery Method Room Air 12/22/23 21:04 Temperature 97.7 F 12/22/23 21:04 Pulse Rate 81 12/22/23 21:04 Respiratory Rate 18 12/22/23 21:04 Blood Pressure 123/83 12/22/23 21:04 Pulse Oximetry 99 12/22/23 21:04 Oxygen Delivery Method Room Air 12/22/23 21:04 MDM - Allergic Reaction MDM Narrative Medical decision making narrative: Patient given intramuscular Solu-Medrol in the ER as well as Pepcid. She drove herself to the emergency department and is discharged home with hydroxyzine to take tonight. She was given prescriptions of prednisone taper, Pepcid, hydroxyzine. Follow-up with PCP and return to the ER if symptoms change or worsen. Medical Records Attestation: I reviewed the patient's medical records. Discharge Plan Discharge Stand Alone Forms: Portal Instructions Chief Complaint: Allergic Reaction Clinical Impression: Urticaria, Allergic reaction Patient Disposition: Home, Self-Care Time of Disposition Decision: 21:19 Condition: Good Prescriptions / Home Meds: New prednisone 20 mg tablet See Rx Instructions .ROUTE .COMPLEX Qty: 12 0RF Rx Instructions: 3 tabs daily for 2 days, then 2 tabs daily for 2 days, then 1 tab daily for 2 days famotidine [Pepcid] 20 mg tablet 20 mg PO BID Qty: 10 0RF hydroxyzine HCl 25 mg tablet 25 mg PO Q6H PRN (Reason: itching) Qty: 20 0RF No Action amoxicillin 500 mg capsule 500 mg PO Q12H Hold Instructions: Doctor's Order atomoxetine 18 mg capsule 18 mg PO DAILY Hold Instructions: Doctor's Order Qelbree 100 mg capsule,extended release 24hr PO DAILY Hold Instructions: Doctor's Order lurasidone 40 mg tablet 40 mg PO DAILY Hold Instructions: Doctor's Order lamotrigine 200 mg tablet 200 mg PO Q12H Hold Instructions: Doctor's Order buspirone 5 mg tablet 5 mg PO DAILY Hold Instructions: Doctor's Order Print Language: Indonesian Instructions: Urticaria (ED), General Allergic Reaction (ED) Referrals: ROSHAN GALLOWAY [Primary Care Provider] - 1 week Discharge Date/Time: 12/22/23 21:53
[2023-12-22] MEDS: METHYLPREDNISOLONE SOD SUCC PF 125 MG/2 ML VIAL IM (21:34)
[2023-12-22] MEDS: HYDROXYZINE HCL 25 MG TABLET 50 MG PO (21:34)
[2023-12-22] MEDS: FAMOTIDINE 20 MG TABLET PO (21:35)
[2023-12-22 21:49] VITALS: PULSE 78; RESP 16; O2SAT 99
== END 2023-12-22 21:53 | disposition home or self-care (01) ==
PROVIDERS: Emergency Provider Emergency Medicine; PCP Nurse Practitioner Family
DX: L50.0 Allergic urticaria (principal); Z79.899 Other long term (current) drug therapy
CPT/HCPCS: 96372; 99284; J2930

== ENCOUNTER 2024-01-14 15:53 | Outpatient (OUT) | payer BC, SELFPAY ==
[2024-01-14 16:13] LABS: Basophils Percent Auto 0.5 % (0.2-2.0); Eosinophils Absolute Auto 0.1 10^3/uL (0.0-0.7); Eosinophils Percent Auto 1.5 % (0.9-7.0); Hematocrit 40.1 % (36.0-48.0); Hemoglobin 13.1 g/dL (12.0-16.0); Immature Granulocytes Abs Auto 0.01 10^3/uL (0.00-0.03); Immature Granulocytes Pct Auto 0.1 % (0.0-0.5); Lymphocytes Absolute Auto 2.1 10^3/uL (1.2-3.8); Lymphocytes Percent Auto 27.6 % (20.5-60.0); Mean Corpuscular HGB Conc 32.7 g/dL (29.9-35.2); Mean Corpuscular Hemoglobin 27.7 pg (26.7-34.0); Mean Corpuscular Volume 84.8 fL (81.0-99.0); Mean Platelet Volume 10.1 fL (9.5-13.5); Monocytes Absolute Auto 0.7 10^3/uL (0.3-0.8); Monocytes Percent Auto 8.8 % (1.7-12.0); Neutrophils Absolute Auto 4.6 10^3/uL (1.4-6.5); Neutrophils Percent Auto 61.5 % (43.0-75.0); Platelet Count 336 10^3/uL (150-450); Red Blood Count 4.73 10^6/uL (4.20-5.40); Red Cell Distribution Width 14.4 % (11.0-15.0); White Blood Count 7.5 10^3/uL (4.0-11.0)
[2024-01-16 08:08] LABS: Antistreptolysin O Ab 210.1 IU/mL (0.0-200.0)
== END 2024-01-14 15:54 | disposition home or self-care (01) ==
LOC: LAB 15:55
PROVIDERS: PCP Nurse Practitioner Family; Visit Provider Nurse Practitioner Family
DX: R53.83 Other fatigue (principal); M25.50 Pain in unspecified joint
CPT/HCPCS: 36415; 85025; 86060

== ENCOUNTER 2024-08-03 16:06 | Outpatient (OUT) | payer BC, SELFPAY | END 2024-08-03 16:07 | disposition home or self-care (01) | LOC: LAB 16:08 | PROVIDERS: PCP Nurse Practitioner Family; Visit Provider Obstetrics & Gynecology | DX: R23.2 Flushing (principal); R61 Generalized hyperhidrosis; R52 Pain, unspecified; R50.9 Fever, unspecified | CPT/HCPCS: 36415; 86611 ==